=== PATIENT | female | born 1950 | race Caucasian/White ===

== ENCOUNTER 2020-01-25 11:27 | Emergency (ER) | payer OTHER ==
[2020-01-25] MEDS ORDERED: PROMETHAZINE INJ 25 MG/ML AMP ONE (12:12)
[2020-01-25] MEDS ORDERED: NA CHLORIDE 0.9% 1,000 ML ONE (12:12)
[2020-01-25 12:29] LABS: Absolute Lymphocytes (CBC) 2.2 K/uL (0.7-4.9); Basophils % 0.2 % (0-1.3); Hematocrit 37.8 % (36.0-45.0); Lymphocytes % 19.8 % (15.3-44.8); MPV 8.6 fL (7.6-11.3); Protime INR 1.68; RBC Red Blood Cell Count 4.27 M/uL (3.86-4.86)
[2020-01-25 12:45] LABS: ALT/SGPT 25 U/L (12-78); AST/SGOT 20 U/L (15-37); Albumin 3.5 g/dL (3.4-5.0); Alkaline Phosphatase 74 U/L (45-117); BUN Blood Urea Nitrogen 59 mg/dL (7-18); Bicarbonate 26 mmol/L (21-32); Bilirubin Direct 0.3 mg/dL (0-0.2); Bilirubin Total 1.1 mg/dL (0.2-1.0); Glucose Level 220 mg/dL (74-106); Lipase 557 U/L (73-393); Magnesium 2.1 mg/dL (1.8-2.4); NT PRO-BNP 424 pg/mL (<125); Potassium 5.2 mmol/L (3.5-5.1); Sodium Level 127 mmol/L (136-145); Troponin (Emerg Dept Use Only) < 0.02 ng/mL (0.0-0.045)
--- NOTE | 2020-01-25 12:58 | RAD REPORT ---
EXAM DESCRIPTION: Alejandro Single View01/25/2020 12:50 pm CLINICAL HISTORY: Covid 19 positive COMPARISON: none FINDINGS: The lungs appear clear of acute infiltrate. The heart is normal size IMPRESSION: No acute abnormalities displayed
--- OUTSIDE RECORDS SUMMARY | 2020-01-25 13:01 | XMS REPORT | Continuity of Care Document ---
:1950 Author Organization [facility] t Address [address] [place] [address] Care Team Providers Name Role Phone Unavailable Unavailable Unavailable Payers Payer Name Policy Type Policy Number Effective Date Expiration Date S ource Problems This patient has no known problems. Allergies, Adverse Reactions, Alerts Allergy Allergy Status Severity Reaction(s) Onset Inactive Treating Comm ents Source Name Type Date Date Clinician penicill DA Active [place] [facility] in G 10-23 Clear 00:00: [facility] [address] [place] [address] Medications This patient has no known medications. Procedures This patient has no known procedures. Results Test Description Test Time Test Comments Results Result Comments Source GLUCOSE BEDSIDE TESTING 2019-10-29 16:46:00 Test Item Value Reference Range Interpretation Comme nts GLUCOSE BEDSIDE TESTING (test code = GLUBED) 116 mg/dL 70-110 H GLUCOSE BEDSIDE [id number] 12:01:00 Test Item Value Reference Range Interpretation Comments GLUCOSE BEDSIDE TESTING (test code 156 mg/dL 70-110 H = GLUBED) GLUCOSE BEDSIDE [id number] 08:28:00 Test Item Value Reference Range Interpretation Comments GLUCOSE BEDSIDE TESTING (test code 115 mg/dL 70-110 H = GLUBED) GLUCOSE BEDSIDE [id number] 19:53:00 Test Item Value Reference Range Interpretation Comments GLUCOSE BEDSIDE TESTING (test code 147 mg/dL 70-110 H = GLUBED) GLUCOSE BEDSIDE [id number] 15:59:00 Test Item Value Reference Range Interpretation Comments GLUCOSE BEDSIDE TESTING (test code 166 mg/dL 70-110 H = GLUBED) GLUCOSE BEDSIDE [id number] 08:06:00 Test Item Value Reference Range Interpretation Comments GLUCOSE BEDSIDE TESTING (test code 158 mg/dL 70-110 H = GLUBED) NT PRO-BRAIN NATRIURETIC [id number] 05:47:00 Test Item Value Reference Range Interpretation Comments NT PRO-BRAIN NATRIURETIC PEPTI 2344 PG/ML 0-100 H (test code = PROBNP) BASIC METABOLIC [id number] 05:40:00 Test Item Value Reference Range Interpretation Comments SODIUM (test code = NA) 138 mmol/L 134-147 N POTASSIUM (test code = 3.3 mmol/L 3.4-5.0 L K) CHLORIDE (test code = 103 mmol/L 100-108 N CL) CARBON DIOXIDE (test 29 mmol/L 21-32 N code = CO2) ANION GAP (test code = 6.0 GAP calc 4.0-15.0 N GAP) GLUCOSE (test code = 149 MG/DL 70-110 H GLU) BLOOD UREA NITROGEN 11 MG/DL 7-18 N (test code = BUN) GLOMERULAR FILTRATION >=60 max estimate >60 RATE (test code = GFR) estGFR CREATININE (test code = 0.7 MG/DL 0.6-1.0 N CREAT) CALCIUM (test code = CA) 8.4 MG/DL 8.5-10.1 L CBC W/AUTO [id number] 05:34:00 Test Item Value Reference Range Interpretation Comments WHITE BLOOD CELL (test code = 8.7 K/mm3 3.5-11.0 N WBC) RED BLOOD CELL (test code = RBC) 5.02 M/mm3 4.70-6.10 N HEMOGLOBIN (test code = HGB) 15.0 G/DL 10.4-14.9 H HEMATOCRIT (test code = HCT) 47.3 % 31.5-44.1 H MEAN CELL VOLUME (test code = 94.2 Fl 84.5-98.6 N MCV) MEAN CELL HGB (test code = MCH) 29.9 pg 27.0-34.2 N MEAN CELL HGB CONCETRATION (test 31.7 G/DL 31.5-34.0 N code = MCHC) RED CELL DISTRIBUTION WIDTH (test 12.7 SD 11.5-14.5 N code = RDW) PLATELET COUNT (test code = PLT) 222.0 K/mm3 150-450 N MEAN PLATELET VOLUME (test code = 10.90 fL 7.0-10.5 H MPV) NEUTROPHIL % (test code = NT%) 66.2 % 40-76 LYMPHOCYTE % (test code = LY%) 23.6 % 20.5-51.1 N MONOCYTE % (test code = MO%) 8.7 % 1.7-9.3 N EOSINOPHIL % (test code = EO%) 1.3 % 0.0-6.0 N BASOPHIL % (test code = BA%) 0.2 % 0.0-2.0 N NEUTROPHIL # (test code = NT#) 5.75 K/mm3 1.8-7.6 N LYMPHOCYTE # (test code = LY#) 2.1 K/mm3 0.6-3.2 N MONOCYTE # (test code = MO#) 0.8 K/mm3 0.3-1.1 N EOSINOPHIL # (test code = EO#) 0.1 K/mm3 0.0-0.4 N BASOPHIL # (test code = BA#) 0.0 K/mm3 0.0-0.1 N MANUAL DIFF REQUIRED (test code = NO DIFF/SCN CRITERIA MDIFF) GLUCOSE BEDSIDE [id number] 20:46:00 Test Item Value Reference Range Interpretation Comments GLUCOSE BEDSIDE TESTING (test code 138 mg/dL 70-110 H = GLUBED) GLUCOSE BEDSIDE [id number] 16:32:00 Test Item Value Reference Range Interpretation Comments GLUCOSE BEDSIDE TESTING (test code 138 mg/dL 70-110 H = GLUBED) - XR SHOULDER 2+V [id number] 15:14:00 Name: ARMANI WILKES [facility] : 1950 Age/S: 69 / F [id number] [address] Unit #: [id number] Loc: [place] [address] Phys: Sona Freed MD Acct: [id number] Dis Date: Status: ADM IN PHONE #: [phone] Exam Date: 10/27/2019 1448 FAX #: Reason: RIGHT SHOULDER PAIN EXAMS: CPT: [id number] XR SHOULDER 2+[place] [address] Fluoro Time: DAP (Gy m2): Air Kerma (mGy): C3 Date: 10/27/2019 REASON FOR EXAM: Right shoulder pain COMPARISON: None. FINDINGS: 3 views of the right shoulder were obtained. There is no fracture, dislocation, bone destruction, or radiopaque foreign body. There is no pathologic widening of the acromioclavicular joint. No soft tissue abnormality is seen. Limited views of the right lung demonstrate a small right pleural effusion. IMPRESSION: 1. No acute bony abnormality ofthe right shoulder. 2. Right pleural effusion. at 1514 Reported and signed by: Alpesh Hammer M.D. CC: Sona Freed MD; Raf Rausch MD; Roc Petersen III, MD PAGE 1 Signed Report Name: ARMANI WILKES [facility] [place] : 1950 Age/S: 69 / F [address] [address] Unit #: [id number]: [place] [address] Phys: Sona Freed MD Acct: [id number] Dis Date: Status: ADM IN PHONE #: [phone] Exam Date: 10/27/2019 1448 FAX #: Reason: RIGHT SHOULDER PAIN EXAMS: CPT: [id number] XR SHOULDER 2+[place] [address] Fluoro Time: DAP (Gy m2): Air Kerma (mGy): <Continued> Technologist: Carmen Beckman RT(R)(CT) Trnscb Date/Time: 10/27/2019 (1513) [email or web address] Orig Print D/T: S: 10/27/2019 (1517) PAGE 2 Signed ReportGLUCOSE BEDSIDE [id number] 11:23:00 Test Item Value Reference Range Interpretation Comments GLUCOSE BEDSIDE TESTING (test code 164 mg/dL 70-110 H = GLUBED) GLUCOSE BEDSIDE [id number] 07:35:00 Test Item Value Reference Range Interpretation Comments GLUCOSE BEDSIDE TESTING (test code 158 mg/dL 70-110 H = GLUBED) CBC W/AUTO [id number] 06:49:00 Test Item Value Reference Range Interpretation Comments WHITE BLOOD CELL (test code = 7.8 K/mm3 3.5-11.0 N WBC) RED BLOOD CELL (test code = RBC) 4.83 M/mm3 4.70-6.10 N HEMOGLOBIN (test code = HGB) 14.5 G/DL 10.4-14.9 N HEMATOCRIT (test code = HCT) 45.8 % 31.5-44.1 H MEAN CELL VOLUME (test code = 94.8 Fl 84.5-98.6 N MCV) MEAN CELL HGB (test code = MCH) 30.0 pg 27.0-34.2 N MEAN CELL HGB CONCETRATION (test 31.7 G/DL 31.5-34.0 N code = MCHC) RED CELL DISTRIBUTION WIDTH (test 12.6 SD 11.5-14.5 N code = RDW) PLATELET COUNT (test code = PLT) 205.0 K/mm3 150-450 N MEAN PLATELET VOLUME (test code = 10.80 fL 7.0-10.5 H MPV) NEUTROPHIL % (test code = NT%) 56.7 % 40-76 N LYMPHOCYTE % (test code = LY%) 32.3 % 20.5-51.1 N MONOCYTE % (test code = MO%) 8.7 % 1.7-9.3 N EOSINOPHIL % (test code = EO%) 2.2 % 0.0-6.0 N BASOPHIL % (test code = BA%) 0.1 % 0.0-2.0 N NEUTROPHIL # (test code = NT#) 4.41 K/mm3 1.8-7.6 N LYMPHOCYTE # (test code = LY#) 2.5 K/mm3 0.6-3.2 N MONOCYTE # (test code = MO#) 0.7 K/mm3 0.3-1.1 N EOSINOPHIL # (test code = EO#) 0.2 K/mm3 0.0-0.4 N BASOPHIL # (test code = BA#) 0.0 K/mm3 0.0-0.1 N MANUAL DIFF REQUIRED (test code = NO DIFF/SCN CRITERIA MDIFF) BASIC METABOLIC [id number] 06:49:00 Test Item Value Reference Range Interpretation Comments SODIUM (test code = NA) 141 mmol/L 134-147 N POTASSIUM (test code = 4.2 mmol/L 3.4-5.0 N K) CHLORIDE (test code = 106 mmol/L 100-108 N CL) CARBON DIOXIDE (test 33 mmol/L 21-32 H code = CO2) ANION GAP (test code = 2.0 GAP calc 4.0-15.0 L GAP) GLUCOSE (test code = 147 MG/DL 70-110 H GLU) BLOOD UREA NITROGEN 12 MG/DL 7-18 N (test code = BUN) GLOMERULAR FILTRATION >=60 max estimate >60 RATE (test code = GFR) estGFR CREATININE (test code = 0.8 MG/DL 0.6-1.0 N CREAT) CALCIUM (test code = CA) 8.4 MG/DL 8.5-10.1 L GLUCOSE BEDSIDE [id number] 21:09:00 Test Item Value Reference Range Interpretation Comments GLUCOSE BEDSIDE TESTING (test code 246 mg/dL 70-110 H = GLUBED) GLUCOSE BEDSIDE [id number] 16:54:00 Test Item Value Reference Range Interpretation Comments GLUCOSE BEDSIDE TESTING (test code 197 mg/dL 70-110 H = GLUBED) - XR FOOT 3+V [id number] 14:28:00 Name: ARMANI WILKES [place] : 1950 Age/S: 69 / F [address] [address] Unit #: [id number] Loc: [place] [address] Phys: Roberto Guy MD Acct: [id number] Dis Date: Status: ADM IN PHONE #: [phone] Exam Date: 10/26/2019 1353 FAX #: Reason: bruisingand pain EXAMS: CPT: [id number] XR FOOT 3+[place] [address] Fluoro Time: DAP (Gy m2): Air Kerma (mGy): EXAM: - XR TIBIA/FIBULA 2 V RT, - XR FOOT 3+V RT HISTORY: bruising and pain Location code:C3 COMPARISON: None available time of interpretation. FINDINGS: AP, oblique, and lateral viewof the right foot with 2 AP and 2 lateral views of the right tibia and fibula is provided. There is no acute fracture or malalignment. Degenerative change about the 1st MTP joint, knee, and tibiotalar joint is present. IMPRESSION: No acute osseous abnormality. at 1428 Reported and signed by: Donald Polanco MD CC: Roberto Guy MD; Raf Rausch MD; Roc Petersen III, MD PAGE 1Signed Report Name: [facility] [place] : 1950 Age/S: 69 / F [address] [facility] Unit #: [id number] Loc: [place] [address] Phys: Roberto Guy MD Acct: [id number] Dis Date: Status: ADM IN PHONE #: [phone] Exam Date: 10/26/2019 1353 FAX #: Reason: bruising and pain EXAMS: CPT: [id number] XR FOOT 3+[place] [address] Fluoro Time: DAP (Gy m2): Air Kerma (mGy): <Co ntinued> Technologist: Yakelin Nguyen, RT(R) Trnscb Date/Time: 10/26/2019 (1428) [email or web address] Orig Print D/T: S: 10/26/2019 (1332) PAGE 2 Signed Report- XR TIBIA/FIBULA 2 V [id number] 14:28:00 Name: [facility] WILKES [facility] [place] : 1950 Age/S: 69 / F [address] [facility] Unit #: [id number] Loc: [place] [address] Phys: Roberto Guy MD Acct: [id number] Dis Date: Status: ADM IN PHONE #: [phone] Exam Date: 10/26/2019 1400 FAX #: Reason: bruisingand pain EXAMS: CPT: [id number] XR TIBIA/FIBUL[place] 2 [place] [address] Fluoro Time: DAP (Gy m2): Air Kerma (mGy): EXAM: - XR TIBIA/FIBULA 2 V RT, - XR FOOT 3+V RT HISTORY: bruising and pain Location code:C3 COMPARISON: None available time of interpretation. FINDINGS: AP, oblique, and lateral viewof the right foot with 2 AP and 2 lateral views of the right tibia and fibula is provided. There is no acute fracture or malalignment. Degenerative change about the 1st MTP joint, knee, and tibiotalar joint is present. IMPRESSION: No acute osseous abnormality. at 1428 Reported and signed by: Donald Polanco MD CC: Roberto Guy MD; Raf Rausch MD; Roc Petersen III, MD PAGE 1Signed Report Name: ARMANI WILKES : 1950 Age/S: 69 / F [address] [address] Unit #: [id number] Loc: [place] [address] Phys: Roberto Guy MD Acct: [id number] Dis Date: Status: ADM IN PHONE #: [phone] Exam Date: 10/26/2019 1400 FAX #: Reason: bruising and pain EXAMS: CPT: [id number] XR TIBIA/FIBULA 2 [place] [address] Fluoro Time: DAP (Gy m2): Air Kerma (mGy): <Continued> Technologist: Yakelin Nguyen RT(R) Trnscb Date/Time: 10/26/2019 (142) [email or web address] Orig Print D/T: S: 10/26/2019 (3785) PAGE 2 Signed ReportGLUCOSE BEDSIDE [id number] 11:28:00 Test Item Value Reference Range Interpretation Comments GLUCOSE BEDSIDE TESTING (test code 177 mg/dL 70-110 H = GLUBED) GLUCOSE BEDSIDE [id number] 07:43:00 Test Item Value Reference Range Interpretation Comments GLUCOSE BEDSIDE TESTING (test code 147 mg/dL 70-110 H = GLUBED) CBC W/AUTO [id number] 07:27:00 Test Item Value Reference Range Interpretation Comments WHITE BLOOD CELL (test code = 8.2 K/mm3 3.5-11.0 N WBC) RED BLOOD CELL (test code = RBC) 4.72 M/mm3 4.70-6.10 N HEMOGLOBIN (test code = HGB) 14.3 G/DL 10.4-14.9 N HEMATOCRIT (test code = HCT) 45.0 % 31.5-44.1 H MEAN CELL VOLUME (test code = 95.3 Fl 84.5-98.6 N MCV) MEAN CELL HGB (test code = MCH) 30.3 pg 27.0-34.2 N MEAN CELL HGB CONCETRATION (test 31.8 G/DL 31.5-34.0 N code = MCHC) RED CELL DISTRIBUTION WIDTH (test 12.6 SD 11.5-14.5 N code = RDW) PLATELET COUNT (test code = PLT) 214.0 K/mm3 150-450 N MEAN PLATELET VOLUME (test code = 11.50 fL 7.0-10.5 H MPV) NEUTROPHIL % (test code = NT%) 61.4 % 40-76 LYMPHOCYTE % (test code = LY%) 28.3 % 20.5-51.1 N MONOCYTE % (test code = MO%) 8.2 % 1.7-9.3 N EOSINOPHIL % (test code = EO%) 1.9 % 0.0-6.0 N BASOPHIL % (test code = BA%) 0.2 % 0.0-2.0 N NEUTROPHIL # (test code = NT#) 5.04 K/mm3 1.8-7.6 N LYMPHOCYTE # (test code = LY#) 2.3 K/mm3 0.6-3.2 N MONOCYTE # (test code = MO#) 0.7 K/mm3 0.3-1.1 N EOSINOPHIL # (test code = EO#) 0.2 K/mm3 0.0-0.4 N BASOPHIL # (test code = BA#) 0.0 K/mm3 0.0-0.1 N MANUAL DIFF REQUIRED (test code = NO DIFF/SCN CRITERIA MDIFF) BASIC METABOLIC [id number] 07:27:00 Test Item Value Reference Range Interpretation Comments SODIUM (test code = NA) 138 mmol/L 134-147 N POTASSIUM (test code = 3.6 mmol/L 3.4-5.0 N K) CHLORIDE (test code = 104 mmol/L 100-108 N CL) CARBON DIOXIDE (test 28 mmol/L 21-32 N code = CO2) ANION GAP (test code = 6.0 GAP calc 4.0-15.0 N GAP) GLUCOSE (test code = 129 MG/DL 70-110 H GLU) BLOOD UREA NITROGEN 13 MG/DL 7-18 N (test code = BUN) GLOMERULAR FILTRATION >=60 max estimate >60 RATE (test code = GFR) estGFR CREATININE (test code = 0.6 MG/DL 0.6-1.0 N CREAT) CALCIUM (test code = CA) 8.2 MG/DL 8.5-10.1 L GLUCOSE BEDSIDE [id number] 20:12:00 Test Item Value Reference Range Interpretation Comments GLUCOSE BEDSIDE TESTING (test code 170 mg/dL 70-110 H = GLUBED) GLUCOSE BEDSIDE [id number] 16:55:00 Test Item Value Reference Range Interpretation Comments GLUCOSE BEDSIDE TESTING (test code 122 mg/dL 70-110 H = GLUBED) GLUCOSE BEDSIDE [id number] 16:55:00 Test Item Value Reference Range Interpretation Comments GLUCOSE BEDSIDE TESTING (test code 220 mg/dL 70-110 H = GLUBED) PROTHROMBIN [id number] 13:05:00 Test Item Value Reference Range Interpretation Comments PT PATIENT (test code = PTP) 14.5 SECONDS 9.3-12.9 H INTERNATIONAL NORMAL RATIO 1.28 INR Unit 0.8-1.2 H (test code = INR) GLUCOSE BEDSIDE [id number] 08:08:00 Test Item Value Reference Range Interpretation Comments GLUCOSE BEDSIDE TESTING (test code 191 mg/dL 70-110 H = GLUBED) BASIC METABOLIC [id number] 06:54:00 Test Item Value Reference Range Interpretation Comments SODIUM (test code = NA) 140 mmol/L 134-147 N POTASSIUM (test code = 3.4 mmol/L 3.4-5.0 N K) CHLORIDE (test code = 108 mmol/L 100-108 N CL) CARBON DIOXIDE (test 27 mmol/L 21-32 N code = CO2) ANION GAP (test code = 5.0 GAP calc 4.0-15.0 N GAP) GLUCOSE (test code = 226 MG/DL 70-110 H GLU) BLOOD UREA NITROGEN 19 MG/DL 7-18 H (test code = BUN) GLOMERULAR FILTRATION >=60 max estimate >60 RATE (test code = GFR) estGFR CREATININE (test code = 0.8 MG/DL 0.6-1.0 N CREAT) CALCIUM (test code = CA) 8.0 MG/DL 8.5-10.1 L LIPID PROFILE (CORONARY RISK)[id number] 06:54:00 Test Item Value Reference Range Interpretation Comments TRIGLYCERIDES (test code = TRIG) 94 MG/DL 0-150 N CHOLESTEROL (test code = CHOL) 133 MG/DL 133-200 N CHOLESTEROL/HDL RATIO (test code = 3.50 RATIO >0 CHOLHDL) HDL CHOLESTEROL (test code = HDL) 38 MG/DL 40-59 L NON-HDL CHOLESTEROL (test code = 95 mg/dL <130 NHDL) LIPOPROTEIN LDL (test code = LDL) 84 MG/DL 0-129 N LDL/HDL (test code = LDL/HDL) 2.21 Ratio 1.48-3.22 Avg N [id number] 06:52:00 Test Item Value Reference Range Interpretation Comments GLYCOSYLATED HEMOGLOBIN (HA1C) 7.8 % A1C 0.0-5.7 H (test code = GLYHGB) ESTIMATED AVERAGE GLUCOSE (test 177 MG/DLest code = EAG) CBC W/AUTO [id number] 06:42:00 Test Item Value Reference Range Interpretation Comments WHITE BLOOD CELL (test code = 7.5 K/mm3 3.5-11.0 N WBC) RED BLOOD CELL (test code = RBC) 4.36 M/mm3 4.70-6.10 L HEMOGLOBIN (test code = HGB) 13.2 G/DL 10.4-14.9 N HEMATOCRIT (test code = HCT) 41.5 % 31.5-44.1 N MEAN CELL VOLUME (test code = 95.2 Fl 84.5-98.6 N MCV) MEAN CELL HGB (test code = MCH) 30.3 pg 27.0-34.2 N MEAN CELL HGB CONCETRATION (test 31.8 G/DL 31.5-34.0 N code = MCHC) RED CELL DISTRIBUTION WIDTH (test 12.5 SD 11.5-14.5 N code = RDW) PLATELET COUNT (test code = PLT) 211.0 K/mm3 150-450 N MEAN PLATELET VOLUME (test code = 11.30 fL 7.0-10.5 H MPV) NEUTROPHIL % (test code = NT%) 52.9 % 40-76 N LYMPHOCYTE % (test code = LY%) 36.1 % 20.5-51.1 N MONOCYTE % (test code = MO%) 7.9 % 1.7-9.3 N EOSINOPHIL % (test code = EO%) 2.8 % 0.0-6.0 N BASOPHIL % (test code = BA%) 0.3 % 0.0-2.0 N NEUTROPHIL # (test code = NT#) 3.95 K/mm3 1.8-7.6 N LYMPHOCYTE # (test code = LY#) 2.7 K/mm3 0.6-3.2 N MONOCYTE # (test code = MO#) 0.6 K/mm3 0.3-1.1 N EOSINOPHIL # (test code = EO#) 0.2 K/mm3 0.0-0.4 N BASOPHIL # (test code = BA#) 0.0 K/mm3 0.0-0.1 N MANUAL DIFF REQUIRED (test code = NO DIFF/SCN CRITERIA MDIFF) [id number] 00:35:00 Test Item Value Reference Range Interpretation Comments TROPONIN-I (test 0.657 NG/ML 0.000-0.045 HH Negative: < /= 0.045 code = TROPI) Positive: >/= 0.046 Correlation wit h serial results, other cardiac markers, and cl inical findings is nec essary to determine the c linical significance of this result. Quantit ative results using d ifferent methodologies s hould not be compared to one another as nume rical results may paresh yby method. Completed by Nursing: NO- DUP LE ART [id number] 23:27:00 Name: ARMANI WILKES [facility] : 1950 Age/S: 69 / F [address] [address] Unit #: [id number] Loc: [place] [address] Phys: Que Summers LEAF TIER Acct: [id number] Dis Date: Status: ADM IN PHONE #: [phone] Exam Date: 10/24/2019 7164 FAX #: Reason: HÉCTOR LOWER EXT COLD EXAMS: CPT: [id number] DUP LE ART HÉCTOR [id number] HISTORY: Pain TECHNIQUE: Grayscale B-mode, color-flow, and spectral Doppler analysis of the lower extremity arterial vasculature was performed. COMPARISON: None available time of interpretation. FINDINGS: There are triphasic and biphasic waveforms involving the lower extremity arterial structures bilaterally. No evidence of vascular occlusion or high-grade flow limiting stenosis. IMPRESSION: 1. No sonographic evidence of hemodynamically significant stenosis within the lower extremity arterial vasculature. at 2327 Reported and signed by: Bladimir Cabral M.D. CC: Raf Rausch MD; Roc Petersen III, MD; Que Summers NP Technologist: Margaret Guevara RDMS Trnscb Date/Time: 10/24/2019 (9359) [email or web address] PAGE 1 Signed Report Name: ARMANI WILKES : 1950 Age/S: 69 / F [address] [address] Unit #: [id number] Loc: [place] [address] Phys: Que Summers NP Acct: [id number] Dis Date: Status: ADM IN PHONE #: [phone] Exam Date: 10/24/20192303 FAX #: Reason: HÉCTOR LOWER EXT COLD EXAMS: CPT: [id number] DUP LE ART HÉCTOR [id number] <Continued> Orig Print D/T: S: 10/24/2019 (6329) Probe: PAGE 2 Signed ReportGLUCOSE BEDSIDE [id number] 21:49:00 Test Item Value Reference Range Interpretation Comments GLUCOSE BEDSIDE TESTING (test code 192 mg/dL 70-110 H = GLUBED) [id number] 20:33:00 Test Item Value Reference Range Interpretation Comments TROPONIN-I (test 0.662 NG/ML 0.000-0.045 HH Negative: < /= 0.045 code = TROPI) Positive: >/= 0.046 Correlation wit h serial results, other cardiac markers, and cl inical findings is nec essary to determine the c linical significance of this result. Quantit ative results using d ifferent methodologies s hould not be compared to one another as nume rical results may paresh yby method. Completed by Nursing: NOBASIC METABOLIC [id number] 20:19:00 Test Item Value Reference Range Interpretation Comments SODIUM (test code = NA) 139 mmol/L 134-147 N POTASSIUM (test code = 3.4 mmol/L 3.4-5.0 N K) CHLORIDE (test code = 106 mmol/L 100-108 N CL) CARBON DIOXIDE (test 27 mmol/L 21-32 N code = CO2) ANION GAP (test code = 6.0 GAP calc 4.0-15.0 N GAP) GLUCOSE (test code = 197 MG/DL 70-110 H GLU) BLOOD UREA NITROGEN 23 MG/DL 7-18 H (test code = BUN) GLOMERULAR FILTRATION >=60 max estimate >60 RATE (test code = GFR) estGFR CREATININE (test code = 0.8 MG/DL 0.6-1.0 N CREAT) CALCIUM (test code = CA) 8.1 MG/DL 8.5-10.1 L CREATINE KINASE (CK)2019-10-24 20:19:00 Test Item Value Reference Range Interpretation Comments CREATINE KINASE (CK) (test code = 74 Unit/L 26-192 N CK) NT PRO-BRAIN NATRIURETIC [id number] 20:19:00 Test Item Value Reference Range Interpretation Comments NT PRO-BRAIN NATRIURETIC PEPTI 3548 PG/ML 0-100 H (test code = PROBNP) BASIC METABOLIC [id number] 20:13:00 Test Item Value Reference Range Interpretation Comments SODIUM (test code = NA) 139 mmol/L 134-147 N POTASSIUM (test code = K) 3.4 mmol/L 3.4-5.0 N CHLORIDE (test code = CL) 106 mmol/L 100-108 N CARBON DIOXIDE (test code = CO2) 27 mmol/L 21-32 N ANION GAP (test code = GAP) 6.0 GAP calc 4.0-15.0 N GLUCOSE (test code = GLU) 197 MG/DL 70-110 H BLOOD UREA NITROGEN (test code = 23 MG/DL 7-18 H BUN) GLOMERULAR FILTRATION RATE (test estGFR >60 code = GFR) CREATININE (test code = CREAT) MG/DL 0.6-1.0 CALCIUM (test code = CA) 8.1 MG/DL 8.5-10.1 L CREATINE KINASE (CK)2019-10-24 20:13:00 Test Item Value Reference Range Interpretation Comments CREATINE KINASE (CK) (test code = CK) Unit/L 26-192 NT PRO-BRAIN NATRIURETIC [id number] 20:13:00 Test Item Value Reference Range Interpretation Comments NT PRO-BRAIN NATRIURETIC PEPTI (test PG/ML 0-100 code = PROBNP) - XR CHEST 1 [id number] 20:08:00 Name: ARMANI WILKES [place] : 1950 Age/S: 69 / F [id number] [place] Unit #: [id number] Loc: [place] [address] Phys: Chi Wasserman MD Acct: [id number] Dis Date: Status: ADM IN PHONE #: [phone] Exam Date: 10/24/20192004 FAX #: Reason: SOB EXAMS: CPT: [id number] XR CHEST 1 V [id number] Fluoro Time: DAP (Gy m2): Air Kerma (mGy): - XR CHEST 1 V, 10/24/2019 7:46 PM Reason For Examination: SOB Comparison: None available Location: R16 Findings LUNGS: No definite pulmonary edema or consolidation is visualized although right basilar consolidation difficult to exclude PLEURA:Moderate- sized right effusion is noted CARDIOMEDIASTINAL SILHOUETTE Unremarkable IMPRESSION: Moderate-sized right effusion is noted, underlying consolidation difficult to exclude at 2008 Reported and signed by: Anastasia Murdock M.D. CC: Chi Wasserman MD PAGE 1 Signed Report Name: ARMANI WILKES [place] : 1950 Age/S: 69 / F [address] [place] [address] Unit #: [id number] Loc:[place] [address] Phys: Chi Wasserman MD Acct: [id number] Dis Date: Status: ADM IN PHONE #: [phone] Exam Date: 10/24/20192004 FAX #: Reason: SOB EXAMS: CPT: [id number] XR CHEST 1 V 08955 Fluoro Ti me: DAP (Gy m2): Air Kerma (mGy): <Continued> Technologist: Argentina Foster RT(R)(CT)(MRI) Trnscb Date/Time: 10/24/2019 (2007) [id number] Orig Print D/T: S: 10/24/2019 (2011) PAGE 2 Signed ReportCBC W/O [id number] 20:06:00 Test Item Value Reference Range Interpretation Comments WHITE BLOOD CELL (test code = 9.6 K/mm3 3.5-11.0 N WBC) RED BLOOD CELL (test code = RBC) 4.56 M/mm3 4.70-6.10 L HEMOGLOBIN (test code = HGB) 13.6 G/DL 10.4-14.9 N HEMATOCRIT (test code = HCT) 42.8 % 31.5-44.1 N MEAN CELL VOLUME (test code = 93.9 Fl 84.5-98.6 N MCV) MEAN CELL HGB (test code = MCH) 29.8 pg 27.0-34.2 N MEAN CELL HGB CONCETRATION (test 31.8 G/DL 31.5-34.0 N code = MCHC) RED CELL DISTRIBUTION WIDTH (test 12.4 SD 11.5-14.5 N code = RDW) PLATELET COUNT (test code = PLT) 222.0 K/mm3 150-450 N MEAN PLATELET VOLUME (test code = 11.40 fL 7.0-10.5 H MPV)
[2020-01-25] MEDS ORDERED: ALBUTEROL 2.5 MG/3 ML NEB SOL ONE (13:07)
[2020-01-25] MEDS ORDERED: NA CHLORIDE 0.9% 500 ML ONE ×2 (13:08→17:03)
[2020-01-25] MEDS ORDERED: INSULIN -REGULAR HUMAN 50 UNIT/0.5 ML ML ONE (13:08)
[2020-01-25 16:33] LABS: Potassium 4.4 mmol/L (3.5-5.1)
--- NOTE | 2020-01-25 17:33 | EDPHYS ---
Physician Documentation [facility] Name: Erum Mckay Age: 69 yrs Sex: Female : 1950 Arrival Date: 01/25/2020 Time: 11:30 Bed 13 Private MD: ED Physician Bravo Birch HPI: 01/24 12:23 This 69 yrs old Female presents to ER via Wheelchair with complaints of snw Nausea/Vomiting. 12:23 The patient presents to the emergency department with nausea, vomiting. Onset: The snw symptoms/episode began/occurred suddenly, today. Possible causes: unknown. The symptoms are aggravated by nothing. Severity of symptoms: At their worst the symptoms were moderate. The patient has not experienced similar symptoms in the past. yes, Pt recently dx with CoVid 19, three weeks ago, pt has been asymptomatic x 1 week. Pt takes ASA and Eliquis. Historical: - Allergies: 11:46 No Known Allergies; ca1 - PMHx: 11:46 Atrial Fib; Diabetes - IDDM; CHF; ca1 - PSHx: 11:46 None; ca1 - Immunization history:: Adult Immunizations up to date. - Social history:: Smoking status: Patient denies any tobacco usage or history of. ROS: 12:22 Constitutional: Negative for fever, chills, and weight loss, Eyes: Negative for injury, snw pain, redness, and discharge, ENT: Negative for injury, pain, and discharge, Neck: Negative for injury, pain, and swelling, Cardiovascular: Negative for chest pain, palpitations, and edema, Respiratory: Negative for shortness of breath, cough, wheezing, and pleuritic chest pain, Back: Negative for injury and pain, : Negative for injury, bleeding, discharge, and swelling, MS/Extremity: Negative for injury and deformity, Skin: Negative for injury, rash, and discoloration, Neuro: Negative for headache, weakness, numbness, tingling, and seizure, Psych: Negative for depression, anxiety, suicide ideation, homicidal ideation, and hallucinations. 12:22 Abdomen/GI: Positive for nausea and vomiting. Exam: 12:22 Constitutional: This is a well developed, well nourished patient who is awake, alert, snw and in no acute distress. Head/Face: Normocephalic, atraumatic. Eyes: Pupils equal round and reactive to light, extra-ocular motions intact. Lids and lashes normal. Conjunctiva and sclera are non-icteric and not injected. Cornea within normal limits. Periorbital areas with no swelling, redness, or edema. ENT: Nares patent. No nasal discharge, no septal abnormalities noted. Tympanic membranes are normal and external auditory canals are clear. Oropharynx with no redness, swelling, or masses, exudates, or evidence of obstruction, uvula midline. Mucous membranes moist. Neck: Trachea midline, no thyromegaly or masses palpated, and no cervical lymphadenopathy. Supple, full range of motion without nuchal rigidity, or vertebral point tenderness. No Meningismus. Chest/axilla: Normal chest wall appearance and motion. Nontender with no deformity. No lesions are appreciated. Cardiovascular: Regular rate and rhythm with a normal S1 and S2. No gallops, murmurs, or rubs. Normal PMI, no JVD. No pulse deficits. Respiratory: Lungs have equal breath sounds bilaterally, clear to auscultation and percussion. No rales, rhonchi or wheezes noted. No increased work of breathing, no retractions or nasal flaring. Back: No spinal tenderness. No costovertebral tenderness. Full range of motion. Skin: Warm, dry with normal turgor. Normal color with no rashes, no lesions, and no evidence of cellulitis. MS/ Extremity: Pulses equal, no cyanosis. Neurovascular intact. Full, normal range of motion. Neuro: Awake and alert, GCS 15, oriented to person, place, time, and situation. Cranial nerves II-XII grossly intact. Motor strength 5/5 in all extremities. Sensory grossly intact. Cerebellar exam normal. Normal gait. Psych: Awake, alert, with orientation to person, place and time. Behavior, mood, and affect are within normal limits. 12:22 Abdomen/GI: Inspection: abdomen appears normal, Bowel sounds: normal, Palpation: abdomen is soft and non-tender, in all quadrants. Vital Signs: 11:43 BP 117 / 67; Pulse 61; Resp 18 S; Temp 97.9(TE); Pulse Ox 100% on R/A; Weight 62.6 kg ca1 (R); Height 5 ft. 5 in. (165.10 cm) (R); 11:53 BP 114 / 67; Pulse 62; Resp 16 S; Pulse Ox 96% on R/A; aa5 12:30 BP 103 / 62; Pulse 59; Resp 18 S; Pulse Ox 96% on R/A; aa5 13:00 Pulse Ox 100% on Nebulizer Mask; aa5 13:30 BP 92 / 60; Pulse 58; Resp 18 S; Pulse Ox 96% on R/A; aa5 16:00 BP 98 / 61; Pulse 68; Resp 16 S; Pulse Ox 100% on R/A; aa5 17:00 BP 104 / 64; Pulse 70; Resp 18 S; Temp 98.0(TE); Pulse Ox 100% on R/A; aa5 11:43 Body Mass Index 22.96 (62.60 kg, 165.10 cm) ca1 MDM: 11:46 Patient medically screened. snw 17:04 Data reviewed: vital signs, nurses notes. Data interpreted: Pulse oximetry: on room air snw is 96 %. Interpretation: normal. Counseling: I had a detailed discussion with the patient and/or guardian regarding: the historical points, exam findings, and any diagnostic results supporting the discharge/admit diagnosis, lab results, the need for outpatient follow up. Response to treatment: the patient's symptoms have mildly improved after treatment, will repeat 500ml NS bolus, patient aware of plan of care. 01/24 11:47 Order name: Basic Metabolic Panel; Complete Time: 12:48 snw 01/24 11:47 Order name: CBC with Diff; Complete Time: 12:48 snw 01/24 11:47 Order name: LFT's; Complete Time: 12:48 snw 01/24 11:47 Order name: Magnesium; Complete Time: 12:48 snw 01/24 11:47 Order name: NT PRO-BNP; Complete Time: 12:48 snw 01/24 11:47 Order name: PT-INR; Complete Time: 12:48 snw 01/24 11:47 Order name: Troponin (emerg Dept Use Only); Complete Time: 12:48 snw 01/24 11:47 Order name: XRAY Chest (1 view); Complete Time: 13:05 snw 01/24 11:47 Order name: Lipase; Complete Time: 12:48 snw 01/24 14:53 Order name: Chem 7; Complete Time: 16:38 snw 01/24 11:47 Order name: EKG; Complete Time: 11:48 snw 01/24 11:47 Order name: Cardiac monitoring; Complete Time: 12:37 snw 01/24 11:47 Order name: EKG - Nurse/Tech; Complete Time: 12:37 snw 01/24 11:47 Order name: IV Saline Lock; Complete Time: 12:37 snw 01/24 11:47 Order name: Labs collected and sent; Complete Time: 12:37 snw 01/24 11:47 Order name: O2 Per Protocol; Complete Time: 12:37 snw 01/24 11:47 Order name: O2 Sat Monitoring; Complete Time: 12:38 snw Administered Medications: 12:15 Drug: Phenergan 12.5 mg Route: IVP; Site: right antecubital; aa5 12:20 Follow up: Response: No adverse reaction aa5 12:15 Drug: NS 0.9% 1000 ml Route: IV; Rate: 125 ml/hr; Site: right antecubital; aa5 13:00 Drug: Albuterol 2.5 mg Route: Inhalation; aa5 13:00 Drug: Albuterol 2.5 mg Route: Inhalation; aa5 13:00 Drug: Albuterol 2.5 mg Route: Inhalation; aa5 13:00 Drug: NS 0.9% 500 ml Route: IV; Rate: bolus; Site: right antecubital; aa5 13:30 Follow up: IV Status: Completed infusion aa5 13:00 Drug: Insulin Regular Human 5 units {Co-Signature: iw (Aleta Dumas RN).} Route: IVP; aa5 Site: right antecubital; 13:30 Follow up: Response: No adverse reaction aa5 17:00 Drug: NS 0.9% 500 ml Route: IV; Rate: bolus; Site: right antecubital; ca1 17:45 Follow up: IV Status: Completed infusion; IV Intake: 500ml aa5 Disposition: 01/25 08:42 Co-signature as Attending Physician, Bravo Birch MD I agree with the assessment and remberto plan of care. Disposition: 01/25/20 17:32 Discharged to Home. Impression: Vomiting, unspecified, Dehydration, Renal insufficiency. - Condition is Stable. - Discharge Instructions: Dehydration, Elderly, Nausea and Vomiting, Adult, Rehydration, Elderly. - Prescriptions for promethazine 25 mg Oral Tablet - take 1 tablet by ORAL route every 6 hours As needed; 20 tablet. - Medication Reconciliation Form, Thank You Letter, Antibiotic Education, Prescription Opioid Use form. - Follow up: Emergency Department; When: As needed; Reason: Worsening of condition. Follow up: Private Physician; When: 2 - 3 days; Reason: Recheck today's complaints, Continuance of care, Re-evaluation by your physician. Signatures: Dispatcher [employer] EDKY Bravo Birch MD MD cha Waters, Shelly, STEREOTYPER-C STEREOTYPER-Csnw Edna Vieira RN RN aa5 Judy Arauz RN RN ca1 Aleta Dumas RN iw Corrections: (The following items were deleted from the chart) 01/24 18:09 17:32 01/25/2020 17:32 Discharged to Home. Impression: Vomiting, unspecified; aa5 Dehydration; Renal insufficiency. Condition is Stable. Forms are Medication Reconciliation Form, Thank You Letter, Antibiotic Education, Prescription Opioid Use. Follow up: Emergency Department; When: As needed; Reason: Worsening of condition. Follow up: Private Physician; When: 2 - 3 days; Reason: Recheck today's complaints, Continuance of care, Re-evaluation by your physician. snw
--- NOTE | 2020-01-25 17:33 | ER ---
Nurse's Notes [facility] Name: Erum Mckay Age: 69 yrs Sex: Female : 1950 Arrival Date: 01/25/2020 Time: 11:30 Bed 13 Private MD: Diagnosis: Vomiting, unspecified;Dehydration;Renal insufficiency Presentation: 01/24 11:43 Chief complaint: Patient states: Covid-19 positive 3 weeks ago. Asymptomatic x 1 week. ca1 Retest done today, pending result. Woke up this morning with N/V/dizziness. No other symptoms reported. Coronavirus screen: Client denies travel out of the [place] in the last 14 days. nausea, vomiting. dizziness Client presents with at least one sign or symptom that may indicate coronavirus-19. Client reports previous positive COVID test result. The client indicates previous COVID test results are pending. Date of collection: January 25, 2020 [facility] Staff notified of need for isolation. Ebola Screen: Patient negative for fever greater than or equal to 101.5 degrees Fahrenheit, and additional compatible Ebola Virus Disease symptoms Patient denies exposure to infectious person. Patient denies travel to an Ebola-affected area in the 21 days before illness onset. No symptoms or risks identified at this time. Initial Sepsis Screen: Does the patient meet any 2 criteria? No. Patient's initial sepsis screen is negative. Does the patient have a suspected source of infection? No. Patient's initial sepsis screen is negative. Risk Assessment: Do you want to hurt yourself or someone else? Patient reports no desire to harm self or others. Onset of symptoms was January 25, 2020. 11:43 Method Of Arrival: Wheelchair ca1 11:43 Acuity: VIRGILIO 3 ca1 Historical: - Allergies: 11:46 No Known Allergies; ca1 - PMHx: 11:46 Atrial Fib; Diabetes - IDDM; CHF; ca1 - PSHx: 11:46 None; ca1 - Immunization history:: Adult Immunizations up to date. - Social history:: Smoking status: Patient denies any tobacco usage or history of. Screenin:00 Abuse screen: Denies threats or abuse. Nutritional screening: No deficits noted. aa5 Tuberculosis screening: No symptoms or risk factors identified. Fall Risk None identified. Assessment: 12:00 General: Appears comfortable, Behavior is calm, cooperative. Pain: Denies pain. 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 Speech is normal, Facial symmetry appears normal, Pupils are PERRLA, Reports dizziness. Cardiovascular: Heart tones S1 S2 present Rhythm is sinus rhythm. Respiratory: Airway is patent Respiratory effort is even, unlabored, Respiratory pattern is regular, symmetrical, Breath sounds are clear bilaterally. GI: Abdomen is round non-distended, Bowel sounds present X 4 quads. Abd is soft and non tender X 4 quads. 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 : No signs and/or symptoms were reported regarding the genitourinary system. EENT: No signs and/or symptoms were reported regarding the EENT system. Derm: Skin is pink, warm \T\ dry. Musculoskeletal: Range of motion: intact in all extremities. 12:30 Reassessment: Patient is alert, oriented x 3, equal unlabored respirations, skin aa5 warm/dry/pink. Pt notified of wait time for lab results. . 12:33 Reassessment: PT FAMILY CONTACT INFORMATION CAROLYN (SON): [phone]. [email or web address] 13:30 Reassessment: Patient is alert, oriented x 3, equal unlabored respirations, skin aa5 warm/dry/pink. 16:07 Reassessment: Patient is alert, oriented x 3, equal unlabored respirations, skin aa5 warm/dry/pink. Repeat chem 7 drawn and sent to lab, pt notified of wait time. . 17:45 Reassessment: Patient is alert, oriented x 3, equal unlabored respirations, skin aa5 warm/dry/pink. To bedside to d/c pt, pt has questions about discharge home, RN CORONARY CARE UNIT was notified. RN CORONARY CARE UNIT at bedside speaking to patient at this time.. Vital Signs: 11:43 BP 117 / 67; Pulse 61; Resp 18 S; Temp 97.9(TE); Pulse Ox 100% on R/A; Weight 62.6 kg ca1 (R); Height 5 ft. 5 in. (165.10 cm) (R); 11:53 BP 114 / 67; Pulse 62; Resp 16 S; Pulse Ox 96% on R/A; aa5 12:30 BP 103 / 62; Pulse 59; Resp 18 S; Pulse Ox 96% on R/A; aa5 13:00 Pulse Ox 100% on Nebulizer Mask; aa5 13:30 BP 92 / 60; Pulse 58; Resp 18 S; Pulse Ox 96% on R/A; aa5 16:00 BP 98 / 61; Pulse 68; Resp 16 S; Pulse Ox 100% on R/A; aa5 17:00 BP 104 / 64; Pulse 70; Resp 18 S; Temp 98.0(TE); Pulse Ox 100% on R/A; aa5 11:43 Body Mass Index 22.96 (62.60 kg, 165.10 cm) ca1 ED Course: 11:30 Patient arrived in ED. ag5 11:44 Edna Vieira, ARTI is Primary Nurse. aa5 11:46 Triage completed. ca1 11:46 Latisha Wheeler FNP-C is PHCP. snw 11:46 Bravo Birch MD is Attending Physician. snw 11:46 Arm band placed on right wrist. ca1 12:00 Patient has correct armband on for positive identification. Placed in gown. Bed in low aa5 position. Call light in reach. Side rails up X2. court recording monitor on. Pulse ox on. NIBP on. 12:10 Initial lab(s) drawn, by me, sent to lab. Inserted saline lock: 20 gauge in right aa5 antecubital area, using aseptic technique. Blood collected. 12:30 EKG done, by ED staff, reviewed by Bravo Birch MD. aa5 12:50 XRAY Chest (1 view) In Process Unspecified. EDMS 18:00 No provider procedures requiring assistance completed. IV discontinued, intact, aa5 bleeding controlled, No redness/swelling at site. Pressure dressing applied. Administered Medications: 12:15 Drug: Phenergan 12.5 mg Route: IVP; Site: right antecubital; aa5 12:20 Follow up: Response: No adverse reaction aa5 12:15 Drug: NS 0.9% 1000 ml Route: IV; Rate: 125 ml/hr; Site: right antecubital; aa5 13:00 Drug: Albuterol 2.5 mg Route: Inhalation; aa5 13:00 Drug: Albuterol 2.5 mg Route: Inhalation; aa5 13:00 Drug: Albuterol 2.5 mg Route: Inhalation; aa5 13:00 Drug: NS 0.9% 500 ml Route: IV; Rate: bolus; Site: right antecubital; aa5 13:30 Follow up: IV Status: Completed infusion aa5 13:00 Drug: Insulin Regular Human 5 units {Co-Signature: iw (Aleta Dumas RN).} Route: IVP; aa5 Site: right antecubital; 13:30 Follow up: Response: No adverse reaction aa5 17:00 Drug: NS 0.9% 500 ml Route: IV; Rate: bolus; Site: right antecubital; ca1 17:45 Follow up: IV Status: Completed infusion; IV Intake: 500ml aa5 Intake: 17:45 IV: 500ml; Total: 500ml. aa5 Outcome: 17:32 Discharge ordered by . [email or web address] 18:00 Discharged to home via wheelchair, with family. aa5 18:00 Condition: stable 18:00 Discharge instructions given to patient, Instructed on discharge instructions, follow up and referral plans. medication usage, Demonstrated understanding of instructions, follow-up care, medications, Prescriptions given X 1. 18:09 Patient left the ED. aa5 Signatures: Dispatcher [employer] EDMS Latisha Wheeler, TARSHA-C RAILROAD YARD WORKER-Csnw Edna Vieira RN RN aa5 Judy Arauz RN RN ca1 Bettina, Giovanny ag5 Sherice Sweet RN RN [id number] Aleta Dumas RN iw Corrections: (The following items were deleted from the chart) 13:44 13:30 BP 92 / 60; Pulse 58bpm; Resp 18bpm; Spontaneous; Pulse Ox 100% Nebulizer Mask; aa5 aa5
[2020-01-25 18:40] VITALS: TEMP 97.9
[2020-01-25 18:44] VITALS: BP 92/60; O2SAT 96
--- NOTE | 2020-01-26 11:04 | EKG ---
Test Date: 2020-01-25 Test Time: 12:28:19 Litigation Specialist: BIBIANA MEASUREMENT RESULTS: Intervals: Rate: 60 OK: 202 QRSD: 90 QT: 492 QTc: 492 [place]: P: 84 OK: 202 QRS: 63 T: 79 INTERPRETIVE STATEMENTS: Normal sinus rhythm Prolonged QT Abnormal ECG Compared to ECG 01/25/2020 12:27:54 No significant changes Electronically Signed On 01-26-20 11:02:01 CDT by Esequiel Epperson
== END 2020-01-25 18:09 | disposition home or self-care (01) ==
LOC: ER 11:27
DX: E86.0 Dehydration (principal); N28.9 Disorder of kidney and ureter, unspecified; I48.91 Unspecified atrial fibrillation; Z79.01 Long term (current) use of anticoagulants
CPT/HCPCS: 96361; 93005; 85025; 80048 ×2; 36415; 83735; 85610; 80076; 84484; 83690; 83880; 71045; 96375; 96374; 99285; J2550; J7040 ×2; J7030

== ENCOUNTER 2020-01-27 14:34 | Observation (INO) | payer OTHER ==
--- OUTSIDE RECORDS SUMMARY | 2020-01-27 14:38 | XMS REPORT | Continuity of Care Document ---
:1950 Author Organization [facility] t Address [address] [place] [address] Care Team Providers Name Role Phone Unavailable Unavailable Unavailable Payers Payer Name Policy Type Policy Number Effective Date Expiration Date S ource Problems This patient has no known problems. Allergies, Adverse Reactions, Alerts Allergy Allergy Status Severity Reaction(s) Onset Inactive Treating Comm ents Source Name Type Date Date Clinician penicill DA Active [facility] in G 10-23 Clear 00:00: [facility] [address] [place] [address] Medications This patient has no known medications. Procedures This patient has no known procedures. Results Test Description Test Time Test Comments Results Result Comments Source GLUCOSE BEDSIDE TESTING 2019-10-29 16:46:00 Test Item Value Reference Range Interpretation Comme nts GLUCOSE BEDSIDE TESTING (test code = GLUBED) 116 mg/dL 70-110 H GLUCOSE BEDSIDE [id number] 12:01:00 Test Item Value Reference Range Interpretation Comments GLUCOSE BEDSIDE TESTING (test code 156 mg/dL 70-110 H = GLUBED) GLUCOSE BEDSIDE [id number] 08:28:00 Test Item Value Reference Range Interpretation Comments GLUCOSE BEDSIDE TESTING (test code 115 mg/dL 70-110 H = GLUBED) GLUCOSE BEDSIDE [id number] 19:53:00 Test Item Value Reference Range Interpretation Comments GLUCOSE BEDSIDE TESTING (test code 147 mg/dL 70-110 H = GLUBED) GLUCOSE BEDSIDE [id number] 15:59:00 Test Item Value Reference Range Interpretation Comments GLUCOSE BEDSIDE TESTING (test code 166 mg/dL 70-110 H = GLUBED) GLUCOSE BEDSIDE [id number] 08:06:00 Test Item Value Reference Range Interpretation Comments GLUCOSE BEDSIDE TESTING (test code 158 mg/dL 70-110 H = GLUBED) NT PRO-BRAIN NATRIURETIC [id number] 05:47:00 Test Item Value Reference Range Interpretation Comments NT PRO-BRAIN NATRIURETIC PEPTI 2344 PG/ML 0-100 H (test code = PROBNP) BASIC METABOLIC [id number] 05:40:00 Test Item Value Reference Range Interpretation [...] CA) 8.4 MG/DL 8.5-10.1 L CBC W/AUTO [id number] 05:34:00 Test Item Value Reference Range Interpretation [...] = NO DIFF/SCN CRITERIA MDIFF) GLUCOSE BEDSIDE [id number] 20:46:00 Test Item Value Reference Range Interpretation Comments GLUCOSE BEDSIDE TESTING (test code 138 mg/dL 70-110 H = GLUBED) GLUCOSE BEDSIDE [id number] 16:32:00 Test Item Value Reference Range Interpretation Comments GLUCOSE BEDSIDE TESTING (test code 138 mg/dL 70-110 H = GLUBED) - XR SHOULDER 2+V [id number] 15:14:00 Name: ARMANI WILKES [facility]ly [facility] : 1950 Age/S: 69 / F [id number] [place] Unit #: [id number] Loc: [place] [address] Phys: Sona Freed MD Acct: [id number] Dis Date: Status: ADM IN PHONE #: [phone] Exam Date: 10/27/2019 1448 FAX #: Reason: RIGHT SHOULDER PAIN EXAMS: CPT: [id number] XR SHOULDER 2+V [place] [address] Fluoro Time: DAP (Gy m2): Air Kerma [...] PAGE 1 Signed Report Name: ARMANI WILKES [facility] Quan : 1950 Age/S: 69 / F [id number] [place] Unit #: [id number]: [place] [address] Phys: Sona Freed MD Acct: [id number] Dis Date: Status: ADM IN PHONE #: [phone] Exam Date: 10/27/2019 1448 FAX #: Reason: RIGHT SHOULDER PAIN EXAMS: CPT: [id number] XR SHOULDER 2+[place] [address] Fluoro Time: DAP (Gy m2): Air Kerma (mGy): <Continued> Technologist: Carmen Beckman RT(R)(CT) Trnscb Date/Time: 10/27/2019 (1513) [email or web address] Orig Print D/T: S: 10/27/2019 (1517) PAGE 2 Signed ReportGLUCOSE BEDSIDE [id number] 11:23:00 Test Item Value Reference Range Interpretation Comments GLUCOSE BEDSIDE TESTING (test code 164 mg/dL 70-110 H = GLUBED) GLUCOSE BEDSIDE [id number] 07:35:00 Test Item Value Reference Range Interpretation Comments GLUCOSE BEDSIDE TESTING (test code 158 mg/dL 70-110 H = GLUBED) CBC W/AUTO [id number] 06:49:00 Test Item Value Reference Range Interpretation [...] = NO DIFF/SCN CRITERIA MDIFF) BASIC METABOLIC [id number] 06:49:00 Test Item Value Reference Range Interpretation [...] CA) 8.4 MG/DL 8.5-10.1 L GLUCOSE BEDSIDE [id number] 21:09:00 Test Item Value Reference Range Interpretation Comments GLUCOSE BEDSIDE TESTING (test code 246 mg/dL 70-110 H = GLUBED) GLUCOSE BEDSIDE [id number] 16:54:00 Test Item Value Reference Range Interpretation Comments GLUCOSE BEDSIDE TESTING (test code 197 mg/dL 70-110 H = GLUBED) - XR FOOT 3+V [id number] 14:28:00 Name: ARMANI WILKES [place] : 1950 Age/S: 69 / F [address] [place] Unit #: [id number] Loc: [place] [address] Phys: Roberto Guy MD Acct: [id number] Dis Date: Status: ADM IN PHONE #: [phone] Exam Date: 10/26/2019 1353 FAX #: Reason: bruisingand pain EXAMS: CPT: [id number] XR FOOT 3+[place] [address] Fluoro Time: DAP (Gy m2): Air Kerma [...] MD PAGE 1Signed Report Name: [facility] : 1950 Age/S: 69 / F [address] [facility] Unit #: [id number] Loc: [place] [address] Phys: Roberto Guy MD Acct: [id number] Dis Date: Status: ADM IN PHONE #: [phone] Exam Date: 10/26/2019 1353 FAX #: Reason: bruising and pain EXAMS: CPT: [id number] XR FOOT 3+V [place] [address] Fluoro Time: DAP (Gy m2): Air Kerma (mGy): <Co ntinued> Technologist: Yakelin Nguyen, RT(R) Trnscb Date/Time: 10/26/2019 (1428) [email or web address] Orig Print D/T: S: 10/26/2019 (3741) PAGE 2 Signed Report- XR TIBIA/FIBULA 2 V [id number] 14:28:00 Name[facility] : 1950 Age/S: 69 / F [address] [facility] Unit #: [id number] Loc: [place] [address] Phys: Roberto Guy MD Acct: [id number] Dis Date: Status: ADM IN PHONE #: [phone] Exam Date: 10/26/2019 1400 FAX #: Reason: bruisingand pain EXAMS: CPT: [id number] XR TIBIA/FIBULA 2 [place] [address] Fluoro Time: DAP (Gy m2): Air Kerma [...] WILKES : 1950 Age/S: 69 / F [address] [place] Unit #: [id number] Loc: [place] [address] Phys: Roberto Guy MD Acct: [id number] Dis Date: Status: ADM IN PHONE #: [phone] Exam Date: 10/26/2019 1400 FAX #: Reason: bruising and pain EXAMS: CPT: [id number] XR TIBIA/FIBULA 2 [place] [address] Fluoro Time: DAP (Gy m2): Air Kerma (mGy): <Continued> Technologist: Yakelin Nguyne RT(R) Trnscb Date/Time: 10/26/2019 (142) [email or web address] Orig Print D/T: S: 10/26/2019 (7903) PAGE 2 Signed ReportGLUCOSE BEDSIDE [id number] 11:28:00 Test Item Value Reference Range Interpretation Comments GLUCOSE BEDSIDE TESTING (test code 177 mg/dL 70-110 H = GLUBED) GLUCOSE BEDSIDE [id number] 07:43:00 Test Item Value Reference Range Interpretation Comments GLUCOSE BEDSIDE TESTING (test code 147 mg/dL 70-110 H = GLUBED) CBC W/AUTO [id number] 07:27:00 Test Item Value Reference Range Interpretation [...] = NO DIFF/SCN CRITERIA MDIFF) BASIC METABOLIC [id number] 07:27:00 Test Item Value Reference Range Interpretation [...] CA) 8.2 MG/DL 8.5-10.1 L GLUCOSE BEDSIDE [id number] 20:12:00 Test Item Value Reference Range Interpretation Comments GLUCOSE BEDSIDE TESTING (test code 170 mg/dL 70-110 H = GLUBED) GLUCOSE BEDSIDE [id number] 16:55:00 Test Item Value Reference Range Interpretation Comments GLUCOSE BEDSIDE TESTING (test code 122 mg/dL 70-110 H = GLUBED) GLUCOSE BEDSIDE [id number] 16:55:00 Test Item Value Reference Range Interpretation Comments GLUCOSE BEDSIDE TESTING (test code 220 mg/dL 70-110 H = GLUBED) PROTHROMBIN [id number] 13:05:00 Test Item Value Reference Range Interpretation Comments PT PATIENT (test code = PTP) 14.5 SECONDS 9.3-12.9 H INTERNATIONAL NORMAL RATIO 1.28 INR Unit 0.8-1.2 H (test code = INR) GLUCOSE BEDSIDE [id number] 08:08:00 Test Item Value Reference Range Interpretation Comments GLUCOSE BEDSIDE TESTING (test code 191 mg/dL 70-110 H = GLUBED) BASIC METABOLIC [id number] 06:54:00 Test Item Value Reference Range Interpretation [...] = LDL/HDL) 2.21 Ratio 1.48-3.22 Avg N [id number] 06:52:00 Test Item Value Reference Range Interpretation Comments GLYCOSYLATED HEMOGLOBIN (HA1C) 7.8 % A1C 0.0-5.7 H (test code = GLYHGB) ESTIMATED AVERAGE GLUCOSE (test 177 MG/DLest code = EAG) CBC W/AUTO [id number] 06:42:00 Test Item Value Reference Range Interpretation [...] (test code = NO DIFF/SCN CRITERIA MDIFF) [id number] 00:35:00 Test Item Value Reference Range Interpretation [...] Completed by Nursing: NO- DUP LE ART [id number] 23:27:00 Name: ARMANI WILKES [facility]ly [facility] : 1950 Age/S: 69 / F [address] [place] Unit #: [id number] Loc: [place] [address] Phys: Que Summers TATTOO ARTIST Acct: [id number] Dis Date: Status: ADM IN PHONE #: [phone] Exam Date: 10/24/2019 4773 FAX #: Reason: HÉCTOR LOWER EXT COLD EXAMS: CPT: [id number] DUP LE ART HÉCTOR [address] HISTORY: Pain TECHNIQUE: Grayscale B-mode, color-flow, and [...] Technologist: Margaret Guevara RDMS Trnscb Date/Time: 10/24/2019 (2030) [email or web address] PAGE 1 Signed Report Name: ARMANI WILKES : 1950 Age/S: 69 / F [address] [place] Unit #: [id number] Loc: [place] [address] Phys: Que Summers NP Acct: [id number] Dis Date: Status: ADM IN PHONE #: [phone] Exam Date: 10/24/20192303 FAX #: Reason: HÉCTOR LOWER EXT COLD EXAMS: CPT: [id number] DUP LE ART HÉCTOR [address] <Continued> Orig Print D/T: S: 10/24/2019 (2224) Probe: PAGE 2 Signed ReportGLUCOSE BEDSIDE [id number] 21:49:00 Test Item Value Reference Range Interpretation Comments GLUCOSE BEDSIDE TESTING (test code 192 mg/dL 70-110 H = GLUBED) [id number] 20:33:00 Test Item Value Reference Range Interpretation [...] yby method. Completed by Nursing: NOBASIC METABOLIC [id number] 20:19:00 Test Item Value Reference Range Interpretation [...] Unit/L 26-192 N CK) NT PRO-BRAIN NATRIURETIC [id number] 20:19:00 Test Item Value Reference Range Interpretation Comments NT PRO-BRAIN NATRIURETIC PEPTI 3548 PG/ML 0-100 H (test code = PROBNP) BASIC METABOLIC [id number] 20:13:00 Test Item Value Reference Range Interpretation [...] = CK) Unit/L 26-192 NT PRO-BRAIN NATRIURETIC [id number] 20:13:00 Test Item Value Reference Range Interpretation Comments NT PRO-BRAIN NATRIURETIC PEPTI (test PG/ML 0-100 code = PROBNP) - XR CHEST 1 [id number] 20:08:00 Name: ARMANI WILKES [place] : 1950 Age/S: 69 / F [address] [place] Unit #: [id number] Loc: [place] [address] Phys: Chi Wasserman MD Acct: [id number] Dis Date: Status: ADM IN PHONE #: [phone] Exam Date: 10/24/20192004 FAX #: Reason: SOB EXAMS: CPT: [id number] XR CHEST 1 V 59646 Fluoro Time: DAP (Gy m2): Air Kerma [...] PAGE 1 Signed Report Name: ARMANI WILKES [place] : 1950 Age/S: 69 / F [address] [place] [address] Unit #: [id number] Loc:[place] [address] Phys: Chi Wasserman MD Acct: [id number] Dis Date: Status: ADM IN PHONE #: [phone] Exam Date: 10/24/20192004 FAX #: Reason: SOB EXAMS: CPT: [id number] XR CHEST 1 V 17477 Fluoro Ti me: DAP (Gy m2): Air Kerma (mGy): <Continued> Technologist: Argentina Foster RT(R)(CT)(MRI) Trnscb Date/Time: 10/24/2019 (2007) [email or web address] Orig Print D/T: S: 10/24/2019 (2011) PAGE 2 Signed ReportCBC W/O [id number] 20:06:00 Test Item Value Reference Range Interpretation [...]
[2020-01-27 15:42] LABS: Basophils % 0.3 % (0-1.3); Hematocrit 34.2 % (36.0-45.0); Lymphocytes % 31.6 % (15.3-44.8); MPV 8.6 fL (7.6-11.3); RBC Red Blood Cell Count 3.85 M/uL (3.86-4.86)
[2020-01-27 16:05] LABS: Protime INR 1.57
[2020-01-27 16:09] LABS: ALT/SGPT 26 U/L (12-78); AST/SGOT 36 U/L (15-37); Albumin 3.3 g/dL (3.4-5.0); Alkaline Phosphatase 67 U/L (45-117); BUN Blood Urea Nitrogen 50 mg/dL (7-18); Bicarbonate 26 mmol/L (21-32); Bilirubin Direct 0.2 mg/dL (0-0.2); Bilirubin Total 0.6 mg/dL (0.2-1.0); Glucose Level 120 mg/dL (74-106); Magnesium 2.1 mg/dL (1.8-2.4); NT PRO-BNP 527 pg/mL (<125); Potassium 4.8 mmol/L (3.5-5.1); Protein, Total 6.7 g/dL (6.4-8.2); Sodium Level 130 mmol/L (136-145); Troponin (Emerg Dept Use Only) < 0.02 ng/mL (0.0-0.045)
[2020-01-27] MEDS ORDERED: FAMOTIDINE 20 MG/2 ML VIAL IV ONE (16:09)
[2020-01-27] MEDS ORDERED: NA CHLORIDE 0.9% 1,000 ML ONE (16:09)
[2020-01-27] MEDS ORDERED: ONDANSETRON 4 MG/2 ML VIAL ONE (16:09)
--- NOTE | 2020-01-27 16:13 | RAD REPORT ---
EXAM DESCRIPTION: RAD - Chest Single View - 01/27/2020 3:51 pm CLINICAL HISTORY: CHEST PAIN COMPARISON: Portable January 24 TECHNIQUE: AP portable chest image was obtained 01/27/2020 3:51 pm . FINDINGS: No focal lung parenchymal process. Interstitial pattern matches comparison. Chronic inters titial changes are evident. Heart and vasculature are normal. No measurable pleural effusion and no p neumothorax. No acute bony abnormality seen. No acute aortic findings suspected. IMPRESSION: Chronic interstitial changes similar to comparison. No acute finding.
--- NOTE | 2020-01-27 16:53 | RAD REPORT ---
EXAM DESCRIPTION: CT - Abdomen Pelvis Wo Contrast - 01/27/2020 4:37 pm CLINICAL HISTORY: ABD PAIN COMPARISON: No comparisons TECHNIQUE: Axial [address] imaging of the abdomen and pelvis was performed without IV contrast. No IV contrast was given because of allergy, abnormal renal function, patient refusal or physician re quest. No oral contrast administered. All CT scans are performed using dose optimization technique as appropriate and may include automated exposure control or mA/KV adjustment according to patient size. FINDINGS: No suspicious findings in the lung bases. Liver and pancreas show no suspicious findings on noncontrast imaging. Spleen is normal size. In the central spleen a 3 centimeter homogeneous low-density round mass is present. In the inferior spleen 8 0 round 3.1 centimeter mass present. Gallbladder size is normal. Hyperdense material layers on the de pendent portion suspected to be sludge. No biliary tree dilatation. No hydronephrosis or suspicious renal mass. No significant adrenal finding. Isodense renal masses an d pyelonephritis cannot be excluded in the absence of IV contrast. The urinary bladder is without sig nificant finding. Uterus and ovaries show no suspicious findings. No gastric wall thickening or mass. Food and fluid are in the stomach lumen and there are normal air densities trapped within mucosal folds. Pneumatosis intestinalis of the gastric wall is not suspected . Focal rounded density in the antrum is believed to be food rather than a mass or polyp. No dilated large or small bowel loops. Moderate stool volume is present in the colon. No wall thickening or mass of the colon identifiable. Diverticulosis is minimal. No free air, pneumatosis or free fluid. No peritoneal or retroperitoneal inflammatory stranding. No hernia, mass or bulky lymphadenopathy. The patient has some congestion or edema in the subcutaneous fatty tissues along each gluteal fold. No air in the soft tissues. There are skin fold artifacts due to the way the patient was placed on the CT scanner did. No acute or destructive bone process. Hip joints and SI joint degenerative changes are present. Patie nt has prominent lower lumbar facet joint degenerative change. Limited wedge compression deformities of the L1 and L5 bodies believed to be chronic. No acute fracture line seen. IMPRESSION: No acute CT abdomen or pelvic finding identifiable. Hyperdense material layering in the dependent portion the gallbladder probably sludge. No wall thicke christian, pericholecystic fluid or biliary tree abnormality. Patient has to 3 centimeter size rounded low-density masses in the spleen probably incidental cysts. Long-term significance doubtful. Mild congestion or edema in the subcutaneous fatty tissues near each gluteal fold. No air in the soft tissues. Correlation can be made with any physical exam findings. Full assessment is limited is the absence of IV contrast.
--- NOTE | 2020-01-27 19:56 | EDPHYS ---
Physician Documentation [facility] Name: Erum Mckay Age: 69 yrs Sex: Female : 1950 Arrival Date: 01/27/2020 Time: 14:36 Bed 8 Private MD: ED Physician Jaziel Liu HPI: 01/26 15:20 This 69 yrs old Female presents to ER via Wheelchair with complaints of Blood cp Pressure Problem, Nausea, Chest Pain, Abdominal Pain. 15:20 The patient presents with abdominal pain mid abdomen. cp 15:20 Onset: The symptoms/episode began/occurred 3 day(s) ago. Associated signs and symptoms: cp Pertinent positives: nausea and vomiting, anorexia, Pertinent negatives: blood in stools, constipation, diarrhea, fever, vomiting blood. The symptoms are described as constant. Modifying factors: the symptoms are aggravated by pressure. Severity of pain: in the emergency department the pain is unchanged despite home interventions. 15:20 The patient has been recently seen at the [facility] Emergency cp Department, this week, for similar complaints labs were performed, was given a prescription for an antiemetic. Historical: - Allergies: 15:00 PENICILLINS; ca1 - PMHx: 15:00 Atrial Fib; CHF; Diabetes - IDDM; ca1 - Immunization history:: Adult Immunizations up to date. - Social history:: Smoking status: Patient denies any tobacco usage or history of. ROS: 15:30 Constitutional: Positive for poor PO intake, Negative for body aches, chills, fever. cp 15:30 Eyes: Negative for injury, pain, redness, and discharge. cp 15:30 ENT: Negative for ear pain, sore throat, difficulty swallowing, difficulty handling secretions. 15:30 Cardiovascular: Positive for chest pain, Negative for edema, palpitations. 15:30 Respiratory: Negative for cough, shortness of breath, wheezing. 15:30 Abdomen/GI: Positive for abdominal pain, nausea and vomiting, Negative for diarrhea, constipation, hematemesis, black/tarry stool, rectal bleeding. 15:30 : Negative for urinary symptoms. 15:30 Skin: Negative for rash. 15:30 Neuro: Positive for weakness, Negative for altered mental status, headache, loss of consciousness, syncope. 15:30 All other systems are negative. Exam: 15:35 Constitutional: The patient appears in no acute distress, alert, awake, cp non-diaphoretic, non-toxic, well developed, well nourished. 15:35 Head/Face: Normocephalic, atraumatic. cp 15:35 Eyes: Periorbital structures: appear normal, Conjunctiva: normal, no exudate, no injection, Sclera: no appreciated abnormality, Lids and lashes: appear normal, bilaterally. 15:35 ENT: External ear(s): are unremarkable, Nose: is normal, Mouth: Lips: dry, Oral mucosa: moist, Posterior pharynx: is normal, airway is patent, no erythema, no exudate. 15:35 Neck: ROM/movement: is normal, is supple, without pain, no range of motions limitations, no meningismus. 15:35 Chest/axilla: Inspection: normal, Palpation: is normal, no crepitus, no tenderness. 15:35 Cardiovascular: Rate: normal, Rhythm: regular, Edema: is not appreciated, JVD: is not appreciated. 15:35 Respiratory: the patient does not display signs of respiratory distress, Respirations: normal, no use of accessory muscles, no retractions, labored breathing, is not present, Breath sounds: are clear throughout, no decreased breath sounds, no stridor, no wheezing. 15:35 Abdomen/GI: Inspection: abdomen appears normal, Bowel sounds: active, all quadrants, Palpation: soft, in all quadrants, moderate abdominal tenderness, in the mid abdomen, rebound tenderness, is not appreciated, involuntary guarding, is elicited in the mid abdomen. 15:35 Back: CVA tenderness, is absent. 15:35 Skin: no rash present. 15:35 Neuro: Orientation: to person, place \\T\\ time. Mentation: is normal, Cerebellar function: is grossly normal, Motor: moves all fours, general weakness with focal deficits, Sensation: is normal. 16:11 ECG was reviewed by the Attending Physician. cp Vital Signs: 14:42 BP 87 / 52 RA; Pulse 68; Resp 18 S; Temp 97.7(TE); Pulse Ox 99% on R/A; Weight 63.5 kg ca1 (R); Height 5 ft. 6 in. (167.64 cm) (R); 14:42 BP 76 / 49 LA; ca1 15:19 BP 85 / 59; Pulse 66; Resp 18; Pulse Ox 99% on R/A; ph 16:00 BP 89 / 57; Pulse 66; Resp 16; Pulse Ox 98% on R/A; ph 17:00 BP 93 / 57; Pulse 64; Resp 18; Pulse Ox 99% on R/A; ph 18:02 BP 89 / 57; Pulse 62; Resp 18; Pulse Ox 100% on R/A; ph 19:00 BP 102 / 61; Pulse 66; Resp 22; Pulse Ox 99% on R/A; mt 19:55 BP 96 / 70 Supine; Pulse 63; Resp 12; Pulse Ox 100% on R/A; lp1 20:00 BP 106 / 55 Sitting; Pulse 66; Resp 16; Pulse Ox 100% on R/A; lp1 20:05 BP 119 / 108 Standing; Pulse 66; Resp 16; Pulse Ox 100% on R/A; lp1 20:40 BP 107 / 65; Pulse 62; Resp 20; Pulse Ox 100% on R/A; lp1 21:00 BP 106 / 56; Pulse 61; Resp 20; Temp 97.6(O); Pulse Ox 100% on R/A; Pain 0/10; lp1 22:39 BP 97 / 66; Pulse 61; Resp 17; Pulse Ox 100% on R/A; lp1 14:42 Body Mass Index 22.60 (63.50 kg, 167.64 cm) ca1 20:05 Patient states feeling dizzy, "seeing white" lp1 MDM: 15:34 Patient medically screened. cp 16:00 Differential diagnosis: cholecystitis, Cholelithiasis, diverticulitis, gastritis, cp non-specific abd pain, pancreatitis, Pyelonephritis, Ureterolithiasis, urinary tract infection, sepsis, dehydration. 18:15 Data reviewed: vital signs, nurses notes, lab test result(s), EKG, radiologic studies, cp plain films. 18:15 Test interpretation: by ED physician or midlevel provider: ECG. cp 19:15 ED course: VS noted. Blood pressure continues to remain low after IV fluids. Will admit cp for continued IV fluids. 19:15 Physician consultation: Victor M Arreguin was called at 19:15, unable to leave message. cp 19:53 Physician consultation: Victor M Arreguin was called at 19:53, unable to leave message. cp 01/26 15:15 Order name: Basic Metabolic Panel; Complete Time: 16:25 ph 08/05 16:25 Interpretation: Normal except: NA 130; CL 94; GLUC 120; BUN 50; CRE 1.62; GFR 32. cp / 15:15 Order name: CBC with Diff; Complete Time: 16:25 ph 08/05 16:25 Interpretation: Normal except: WBC 9.6; RBC 3.85; HCT 34.2. cp / 15:15 Order name: LFT's; Complete Time: 16:25 ph 08 16:57 Interpretation: Normal except: ALB 3.3; A/G 1.0. cp / 15:15 Order name: Magnesium; Complete Time: 16:25 ph / 18:07 Interpretation: Reviewed. cp / 15:15 Order name: NT PRO-BNP; Complete Time: 16:25 ph 08/ 17:34 Interpretation: NT PRO-BNP 527; Reviewed. cp / 15:15 Order name: PT-INR; Complete Time: 16:25 ph 08 16:57 Interpretation: Abnormal: PT 18.4. cp / 15:15 Order name: Troponin (emerg Dept Use Only); Complete Time: 16:25 ph 01/26 18:06 Interpretation: Reviewed. cp / 15:33 Order name: Lipase; Complete Time: 16:55 cp / 16:55 Interpretation: Abnormal: LIP 699. cp / 15:33 Order name: COVID-19 cp / 15:33 Order name: Flu; Complete Time: 19:14 cp / 19:14 Interpretation: Reviewed. cp / 15:33 Order name: Procalcitonin; Complete Time: 18:04 cp / 18:04 Interpretation: Reviewed. cp / 15:33 Order name: Lactate; Complete Time: 16:55 cp / 15:33 Order name: Blood Culture Adult (2) cp / 15:33 Order name: Urine Microscopic Only cp /05 15:15 Order name: XRAY Chest (1 view); Complete Time: 16:25 ph 08/05 18:07 Interpretation: Report review. cp / 15:15 Order name: EKG; Complete Time: 15:16 ph / 15:15 Order name: Cardiac monitoring; Complete Time: 15:16 ph 0805 15:15 Order name: EKG - Nurse/Tech; Complete Time: 15:16 ph 01/26 15:15 Order name: IV Saline Lock; Complete Time: 15:16 ph 01/26 15:15 Order name: Labs collected and sent; Complete Time: 15:16 ph 01/26 15:15 Order name: O2 Per Protocol; Complete Time: 15:16 ph 01/26 15:15 Order name: O2 Sat Monitoring; Complete Time: 15:16 ph 01/26 16:26 Order name: Abdomen ; Complete Time: 16:55 EDCO 01/26 20:52 Order name: Urine Dipstick--Ancillary (enter results) 2 01/26 22:00 Order name: Urine Culture EDCO 01/26 15:33 Order name: Urine Dipstick-Ancillary (obtain specimen); Complete Time: 20:58 cp EC:11 Rate is 67 beats/min. Rhythm is regular. IA interval is normal. QRS interval is normal. cp QT interval is normal. T waves are Inverted in leads aVL, aVR. Interpreted by me. Reviewed by me. Administered Medications: 16:15 Drug: Pepcid 20 mg Route: IVP; Site: right antecubital; ph 18:08 Follow up: Response: No adverse reaction ph 16:15 Drug: NS 0.9% 1000 ml Route: IV; Rate: 1000 ml/hr; Site: right antecubital; ph 20:12 Follow up: IV Status: Completed infusion; IV Intake: 1000ml lp1 22:41 Not Given (Patient Refused): Zofran (Ondansetron) 4 mg IVP once; over 2 minutes lp1 Disposition: 01/27 08:12 Co-signature as Attending Physician, Jaziel iLu MD I agree with the assessment and kdr plan of care. Disposition: 01/27/20 19:55 Hospitalization ordered by Victor M Arreguin for Observation. Preliminary diagnosis are Nausea and vomiting, Dehydration, Hypotension, unspecified. - Bed requested for Telemetry/MedSurg (observation). - Status is Observation. lp1 - Condition is Stable. - Problem is new. - Symptoms have improved. Signatures: Dispatcher [employer] [facility] Jaziel Liu MD MD kdr Destini Salinas RN RN lp1 Sirena Dykes RN RN tl1 Cortney Jo RN RN ph Anika, Bravo, PA PA cp Judy Arauz, RN RN ca1 Corrections: (The following items were deleted from the chart) 01/26 16:26 15:34 Abdomen Pelvis W Con+CT.RAD.BRZ ordered. EDMS EDMS 19:56 19:55 Hospitalization Ordered by Victor M Arreguin for Observation. Preliminary diagnosis cp is Nausea and vomiting; Dehydration. Bed requested for Telemetry/MedSurg (observation). Status is Observation. Condition is Stable. Problem is new. Symptoms have improved. cp 20:12 15:33 Droplet/Contact Precautions ordered. cp lp1 20:12 15:33 Notify Health Dept [phone]/ ordered. cp lp1 20:13 15:33 Document PUI# ordered. cp lp1 22:05 19:56 01/27/2020 19:55 Hospitalization Ordered by Victor M Arreguin for Observation. tl1 Preliminary diagnosis is Nausea and vomiting; Dehydration; Hypotension, unspecified. Bed requested for Telemetry/MedSurg (observation). Status is Observation. Condition is Stable. Problem is new. Symptoms have improved. cp 22:48 22:05 01/27/2020 19:55 Hospitalization Ordered by Victor M Arreguin for Observation. lp1 Preliminary diagnosis is Nausea and vomiting; Dehydration; Hypotension, unspecified. Bed requested for Telemetry/MedSurg (observation). Status is Observation. Condition is Stable. Problem is new. Symptoms have improved. tl1
--- NOTE | 2020-01-27 19:56 | ER ---
Nurse's Notes [facility] Name: Erum Mckay Age: 69 yrs Sex: Female : 1950 Arrival Date: 01/27/2020 Time: 14:36 Bed 8 Private MD: Diagnosis: Nausea and vomiting;Dehydration;Hypotension, unspecified Presentation: 01/26 14:42 Chief complaint: Patient's son or daughter states: Upper abdominal pain since this ca1 morning. Reports N/V. Been checking the BP daily, and BP this morning was 90/56, repeated after 20-30 minutes and has dropped down to 70/53. We came to the ER right away. Chest pain for at least a week. Ebola Screen: Patient negative for fever greater than or equal to 101.5 degrees Fahrenheit, and additional compatible Ebola Virus Disease symptoms Patient denies exposure to infectious person. Patient denies travel to an Ebola-affected area in the 21 days before illness onset. No symptoms or risks identified at this time. Initial Sepsis Screen: Does the patient meet any 2 criteria? No. Patient's initial sepsis screen is negative. Does the patient have a suspected source of infection? No. Patient's initial sepsis screen is negative. Risk Assessment: Do you want to hurt yourself or someone else? Patient reports no desire to harm self or others. Onset of symptoms was January 27, 2020. 14:42 Method Of Arrival: Wheelchair ca1 14:42 Acuity: VIRGILIO 2 ca1 14:57 Coronavirus screen: Client denies travel out of the [place] in the last 14 days. cough ca1 unrelated to allergies, diarrhea, fatigue, nausea, shortness of breath, sore throat, vomiting. Client presents with at least one sign or symptom that may indicate coronavirus-19. Standard/surgical mask placed on the client. Provider contacted for isolation considerations. Client reports previous positive COVID test result. Date of collection: December 2019 3 weeks ago [facility] Staff notified of need for isolation. Retest Was done 01/25/2020, pending result. Historical: - Allergies: 15:00 PENICILLINS; ca1 - PMHx: 15:00 Atrial Fib; CHF; Diabetes - IDDM; ca1 - Immunization history:: Adult Immunizations up to date. - Social history:: Smoking status: Patient denies any tobacco usage or history of. Screenin:16 Abuse screen: Denies threats or abuse. Denies injuries from another. Nutritional ph screening: No deficits noted. Tuberculosis screening: No symptoms or risk factors identified. Fall Risk None identified. Assessment: 15:17 General: Appears in no apparent distress. comfortable, well groomed, Behavior is calm, ph cooperative, appropriate for age, Denies fever. Pain: Complains of pain in epigastric area, right upper quadrant and left upper quadrant. Neuro: Level of Consciousness is awake, alert, obeys commands, Oriented to person, place, time, situation. Cardiovascular: Reports fatigue, lightheadedness, nausea, low BP at home Capillary refill < 3 seconds in bilateral fingers Patient's skin is warm and dry. Respiratory: Airway is patent Respiratory effort is even, unlabored, Respiratory pattern is regular, symmetrical. GI: Abdomen is non-distended, Reports upper abdominal pain, nausea, Patient currently denies diarrhea, vomiting. Derm: Skin is intact, Skin is pink, warm \\T\\ dry. Musculoskeletal: Circulation, motion, and sensation intact. Range of motion: intact in all extremities. 16:00 Reassessment: Patient appears in no apparent distress at this time. Patient and/or ph family updated on plan of care and expected duration. Pain level reassessed. Patient is alert, oriented x 3, equal unlabored respirations, skin warm/dry/pink. 17:03 Reassessment: Patient appears in no apparent distress at this time. Patient and/or ph family updated on plan of care and expected duration. Pain level reassessed. Patient is alert, oriented x 3, equal unlabored respirations, skin warm/dry/pink. 18:03 Reassessment: Patient appears in no apparent distress at this time. Patient and/or ph family updated on plan of care and expected duration. Pain level reassessed. Patient is alert, oriented x 3, equal unlabored respirations, skin warm/dry/pink. Pt denies nausea at this time. 20:00 Reassessment: Patient states continuing to feel dizzy; Orthostatics performed, upon lp1 standing patient states "I'm seeing white everywhere". 20:40 Reassessment: Assisted patient to bathroom at this time; steady gait noted for transfer lp1 to . 21:30 Reassessment: Patient appears in no apparent distress at this time. No changes from lp1 previously documented assessment. Patient is alert, oriented x 3, equal unlabored respirations, skin warm/dry/pink. 22:39 Reassessment: Patient ambulating around room, steady gait noted; states feeling better. lp1 Vital Signs: 14:42 BP 87 / 52 RA; Pulse 68; Resp 18 S; Temp 97.7(TE); Pulse Ox 99% on R/A; Weight 63.5 kg ca1 (R); Height 5 ft. 6 in. (167.64 cm) (R); 14:42 BP 76 / 49 LA; ca1 15:19 BP 85 / 59; Pulse 66; Resp 18; Pulse Ox 99% on R/A; ph 16:00 BP 89 / 57; Pulse 66; Resp 16; Pulse Ox 98% on R/A; ph 17:00 BP 93 / 57; Pulse 64; Resp 18; Pulse Ox 99% on R/A; ph 18:02 BP 89 / 57; Pulse 62; Resp 18; Pulse Ox 100% on R/A; ph 19:00 BP 102 / 61; Pulse 66; Resp 22; Pulse Ox 99% on R/A; mt 19:55 BP 96 / 70 Supine; Pulse 63; Resp 12; Pulse Ox 100% on R/A; lp1 20:00 BP 106 / 55 Sitting; Pulse 66; Resp 16; Pulse Ox 100% on R/A; lp1 20:05 BP 119 / 108 Standing; Pulse 66; Resp 16; Pulse Ox 100% on R/A; lp1 20:40 BP 107 / 65; Pulse 62; Resp 20; Pulse Ox 100% on R/A; lp1 21:00 BP 106 / 56; Pulse 61; Resp 20; Temp 97.6(O); Pulse Ox 100% on R/A; Pain 0/10; lp1 22:39 BP 97 / 66; Pulse 61; Resp 17; Pulse Ox 100% on R/A; lp1 14:42 Body Mass Index 22.60 (63.50 kg, 167.64 cm) ca1 20:05 Patient states feeling dizzy, "seeing white" lp1 ED Course: 14:36 Patient arrived in ED. fj1 14:42 Arm band placed on right wrist. ca1 14:48 Triage completed. ca1 14:53 Cortney Jo, RN is Primary Nurse. ph 15:12 EKG done, by ED staff, reviewed by Jaziel Liu MD. mt 15:16 Initial lab(s) drawn, by id, sent to lab. Inserted saline lock: 22 gauge in right ph antecubital area, using aseptic technique. Blood collected. 15:17 Patient has correct armband on for positive identification. Placed in gown. Bed in low ph position. Call light in reach. Side rails up X 1. vehicle monitor technician on. Pulse ox on. NIBP on. Door closed. Noise minimized. Warm blanket given. 15:22 Bravo Donaldson PA is PHCP. cp 15:22 Jaziel Liu MD is Attending Physician. cp 15:52 XRAY Chest (1 view) In Process Unspecified. EDMS 16:37 Abdomen In Process Unspecified. EDMS 18:40 No provider procedures requiring assistance completed. ph 19:54 Victor M Arreguin is Hospitalizing Provider. cp 20:11 Patient admitted, IV remains in place. lp1 Administered Medications: 16:15 Drug: Pepcid 20 mg Route: IVP; Site: right antecubital; ph 18:08 Follow up: Response: No adverse reaction ph 16:15 Drug: NS 0.9% 1000 ml Route: IV; Rate: 1000 ml/hr; Site: right antecubital; ph 20:12 Follow up: IV Status: Completed infusion; IV Intake: 1000ml lp1 22:41 Not Given (Patient Refused): Zofran (Ondansetron) 4 mg IVP once; over 2 minutes lp1 Intake: 20:12 IV: 1000ml; Total: 1000ml. lp1 Outcome: 19:55 Decision to Hospitalize by Provider. cp 20:10 Condition: stable lp1 20:10 Instructed on the need for admit. 22:31 Admitted to Med/surg accompanied by tech, via wheelchair, room 212, with chart, Report lp1 called to ARTI Lea 22:48 Patient left the ED. lp1 Signatures: Dispatcher [employer] EDMS Destini Salinas, RN RN lp1 Cortney Jo RN RN Bravo Donaldson PA PA cp Thompson, [facility] Judy Arauz RN RN [facility] Duy Steinberg [facility]
[2020-01-27 21:58] LABS: Urine Bacteria <20 /HPF (<20); Urine Culture Reflex Order REFLEXED; Urine RBC <5 /HPF (NONE SEEN)
[2020-01-27 22:05] LABS: Urine Blood TRACE (NEG); Urine Glucose NEGATIVE (NEG); Urine Protein NEGATIVE (NEG); Urine Specific Gravity 1.015 (1.005-1.030); Urine pH 5.5 (5.0-7.0)
--- NOTE | 2020-01-27 22:05 | P.HP ---
Certification for Inpatient Patient admitted to: Observation With expected LOS: <2 Midnights Practitioner: I am a practitioner with admitting privileges, knowledge of patient current condition, hospital course, and medical plan of care. Services: Services provided to patient in accordance with Admission requirements found in Title 42 Section 412.3 of the Code of Federal Regulations Patient History Date of Service: 01/27/20 Reason for admission: Generalized weakness, vomiting and diarrhea History of Present Illness: 69-year-old woman with a history of atrial fibrillation, diabetes mellitus type 2, hypertension presented emergency department with a complaint of generalized weakness, nausea and vomiting and diarrhea and low blood pressure. Patient states his symptoms have been present for about 3 days. She tested positive for COVID 19 about 2 weeks ago. Her test was repeated 2 days ago and according to the patient it came back negative. She was in the emergency department 2 days ago for nausea and vomiting. Her lipase level was elevated. Patient was given IV hydration and discharged home. His lipase level remain elevated today. CT abdomen and pelvis demonstrated gallbladder sludge. Her blood pressure was low in the ED with systolic blood down to the 70s. Patient was given IV fluid bolus which has increased her systolic blood pressures to the low 100s. UA is pending. Patient is admitted for further management. - Past Medical/Surgical History -: Hypertension -: Chronic atrial fibrillation -: Diabetes mellitus type 2 - Family History Sister -: Diabetes - Social History Smoking Status: Never smoker Alcohol use: No CD- Drugs: No Place of Residence: Home Review of Systems Other: Except as documented, all other systems reviewed and negative Physical Examination - Physical Exam General: Alert, In no apparent distress, Oriented x3 HEENT: Mucous membr. moist/pink, Sclerae nonicteric Neck: Supple, JVD not distended, No Thyromegaly Respiratory: Clear to auscultation bilaterally, Normal air movement Cardiovascular: No edema, Regular rate/rhythm, Normal S1 S2 Gastrointestinal: Normal bowel sounds, Soft and benign, Non-distended, No tenderness Musculoskeletal: No swelling, No erythema Integumentary: No rashes Neurological: Normal speech, Normal strength at 5/5 x4 extr, Cranial nerves 3-12 intact - Studies Laboratory Data (last 24 hrs) 01/27/20 16:10: Lipase 699 H 01/27/20 15:15: PT 18.4 H, INR 1.57 01/27/20 15:15: WBC 9.6 D, Hgb 12.1, Hct 34.2 L, Plt Count 254 01/27/20 15:15: Sodium 130 L, Potassium 4.8, BUN 50 H, Creatinine 1.62 H, Glucose 120 H, Magnesium 2.1, Total Bilirubin 0.6, AST 36, ALT 26, Alkaline Phosphatase 67 Microbiology Data (last 24 hrs): 01/27/20 18:15 Nasopharnyx Influenza Type A Antigen Screen - Final 01/27/20 18:15 Nasopharnyx Influenza Type B Antigen Screen - Final Assessment and Plan - Problems (Diagnosis) (1) Hypovolemic shock Current Visit: Yes Status: Acute (2) Acute pancreatitis Current Visit: Yes Status: Acute (3) Gastroenteritis Current Visit: Yes Status: Acute (4) History of 2019 novel coronavirus disease (COVID-19) Current Visit: Yes Status: Acute (5) Diabetes mellitus type 2 in nonobese Current Visit: Yes Status: Acute (6) Chronic atrial fibrillation Current Visit: Yes Status: Acute (7) Acute renal failure Current Visit: Yes Status: Acute - Plan Admit to the medical floor. Continue IV hydration with normal saline. Monitor blood pressure closely Supportive measures-clear liquid diet, antiemetics. Follow urinalysis to assess for UTI. Monitor renal function. Insulin sliding scale for glucose management. Hold antihypertensives. - Advance Directives Does patient have a Living Will: No Does patient have a Durable POA for Healthcare: No
[2020-01-27] MEDS ORDERED: ACETAMINOPHEN 500 MG TAB PO PRN (22:49)
[2020-01-27] MEDS ORDERED: ONDANSETRON 4 MG/2 ML VIAL IV PRN (22:49)
[2020-01-28 00:26] VITALS: O2SAT 100; BMI 23.0
[2020-01-28] MEDS: NA CHLORIDE 0.9% 1,000 ML IV SCH ×2 (00:39→08:49)
[2020-01-28] MEDS ORDERED: HEPARIN 5000 UNIT/ML 1 ML VIAL SQ SCH (01:00)
[2020-01-28 05:39] LABS: Absolute Lymphocytes (CBC) 2.9 K/uL (0.7-4.9); Basophils % 0.3 % (0-1.3); Hematocrit 30.8 % (36.0-45.0); Lymphocytes % 38.4 % (15.3-44.8); MPV 8.5 fL (7.6-11.3); RBC Red Blood Cell Count 3.46 M/uL (3.86-4.86)
[2020-01-28 05:48] LABS: Albumin 2.9 g/dL (3.4-5.0); Bilirubin Total 0.6 mg/dL (0.2-1.0); Magnesium 2.1 mg/dL (1.8-2.4); Phosphorus 3.5 mg/dL (2.5-4.9); Protein, Total 5.8 g/dL (6.4-8.2)
[2020-01-28] MEDS: INSULIN -REGULAR HUMAN 50 UNIT/0.5 ML ML SQ SCH ×2 (07:30→11:30)
[2020-01-28] MEDS ORDERED: ASPIRIN 81 MG CHEWABLE TABLET PO SCH (09:00)
[2020-01-28] MEDS ORDERED: AMIODARONE HCL 200 MG TAB PO SCH (09:00)
[2020-01-28] MEDS ORDERED: APIXABAN 5 MG TABLET PO SCH (09:00)
--- NOTE | 2020-01-28 13:11 | P.DS ---
Admission Date: 01/27/20 Discharge Date: 01/28/20 Disposition: ROUTINE DISCHARGE Discharge Condition: GOOD Reason for Admission: Generalized weakness, vomiting and diarrhea Hospital Course: Patient is a 69 year old female with a PMH of HTN, Atrial fibgrilllation on systemic AC, CKD 3 AND type II diabetes mellitus who presented with gastroenteritis. She was hypotensive on admission and responded to volume repletion. She is cleared for discharge. I will hold her anti-HTN medications due to hypotension: amlodipine, metoprolol, spironolactone and furosemide. Vital Signs/Physical Exam: Temp Pulse Resp BP Pulse Ox 96.7 F L 69 69 H 100/59 L 100 01/28/20 08:00 01/28/20 08:00 01/28/20 08:00 01/28/20 08:00 01/28/20 08:00 General: Alert, In no apparent distress, Cooperative HEENT: Atraumatic, Normocephalic, EOMI Neck: Supple Respiratory: Clear to auscultation bilaterally, Normal air movement Cardiovascular: No edema, Normal pulses, Regular rate/rhythm, Normal S1 S2 Gastrointestinal: Normal bowel sounds, Soft and benign, Non-distended, No tenderness Musculoskeletal: No clubbing, No swelling, No contractures, No erythema, No tenderness, No warmth Neurological: Normal speech, Sensation intact, Normal affect Laboratory Data at Discharge: WBC 7.5 K/uL (4.3-10.9) D 01/28/20 05:03 Hgb 11.1 g/dL (12.0-15.0) L 01/28/20 05:03 Hct 30.8 % (36.0-45.0) L 01/28/20 05:03 Plt Count 200 K/uL (152-406) D 01/28/20 05:03 PT 18.4 SECONDS (9.5-12.5) H 01/27/20 15:15 INR 1.57 01/27/20 15:15 Sodium 135 mmol/L (136-145) L 01/28/20 05:03 Potassium 4.0 mmol/L (3.5-5.1) 01/28/20 05:03 BUN 40 mg/dL (7-18) H 01/28/20 05:03 Creatinine 1.17 mg/dL (0.55-1.3) 01/28/20 05:03 Glucose 70 mg/dL (74-106) L 01/28/20 05:03 Phosphorus 3.5 mg/dL (2.5-4.9) 01/28/20 05:03 Magnesium 2.1 mg/dL (1.8-2.4) 01/28/20 05:03 Total Bilirubin 0.6 mg/dL (0.2-1.0) 01/28/20 05:03 AST 31 U/L (15-37) 01/28/20 05:03 ALT 22 U/L (12-78) 01/28/20 05:03 Alkaline Phosphatase 56 U/L (45-117) 01/28/20 05:03 Triglycerides 144 mg/dL (<150) 01/28/20 05:03 Cholesterol 126 mg/dL (<200) 01/28/20 05:03 HDL Cholesterol 46 mg/dL (40-60) 01/28/20 05:03 Cholesterol/HDL Ratio 2.74 01/28/20 05:03 Lipase 476 U/L (73-393) H 01/28/20 05:03 Home Medications: Amiodarone HCl [Cordarone*] 200 mg PO DAILY 01/28/20 Apixaban [Eliquis] 5 mg PO BID 01/28/20 Aspirin Chewable [Aspirin Chewable*] 81 mg PO DAILY 01/28/20 Atorvastatin Calcium [Lipitor*] 10 mg PO DAILY 01/28/20 Promethazine Tab [Phenergan*] 25 mg PO Q6HP PRN 01/28/20
[2020-01-28 14:44] VITALS: BP 161/63; TEMP 97
[2020-01-28] MEDS ORDERED: ATORVASTATIN 10 MG TAB PO SCH (21:00)
== END 2020-01-28 16:08 | disposition home or self-care (01) ==
LOC: ER 14:34 → ERHOLD 21:49 → 2ND 22:34
PROVIDERS: ADMIT Internal Medicine; ATTEND Internal Medicine
DX: R57.1 Hypovolemic shock (principal); K52.9 Noninfective gastroenteritis and colitis, unspecified; K85.90 Acute pancreatitis without necrosis or infection, unspecified; E11.22 Type 2 diabetes mellitus with diabetic chronic kidney disease; I13.0 Hypertensive heart and chronic kidney disease with heart failure and stage 1 through stage 4 chronic kidney disease, or unspecified chronic kidney disease; N18.3 Chronic kidney disease, stage 3 (moderate); N17.9 Acute kidney failure, unspecified; I50.9 Heart failure, unspecified; I48.20 Chronic atrial fibrillation, unspecified; I95.9 Hypotension, unspecified; Z86.19 Personal history of other infectious and parasitic diseases; Z79.01 Long term (current) use of anticoagulants; Z88.0 Allergy status to penicillin; Z83.3 Family history of diabetes mellitus
CPT/HCPCS: 96361; 93005; 87040 ×2; 87088; 85025 ×2; 87086; 80048; 36415; 83735 ×2; 84100; 85610; 80061; 82947 ×2; 80076; 83605; 84484; 83690 ×2; 80053; 84145; 83880; 87804 ×2; 74176; 71045; 96374; 99285; J1644; J7030 ×3; G0378 ×2; 81003; 81015; J2405

== ENCOUNTER 2020-10-05 22:16 | Emergency (ER) | payer OTHER ==
--- NOTE | 2020-10-06 00:23 | EDPHYS ---
Physician Documentation [facility] Name: Erum Mckay Age: 70 yrs Sex: Female : 1950 Arrival Date: 10/05/2020 Time: 22:18 Bed 25 Private MD: ED Physician Terry Burton HPI: 10/06 00:16 This 70 yrs old Female presents to ER via Ambulatory with complaints of cp Redness of Eye, Eye Problem, Dizziness. 00:16 The patient is experiencing redness, to the right eye, caused by an unknown mechanism. cp Onset: The symptoms/episode began/occurred this morning. Associated signs and symptoms: Pertinent positives: None. Pertinent negatives: fever, injury. Patient wears glasses. Historical: - Allergies: 10/05 22:44 PENICILLINS; bb - Home Meds: 22:46 metformin Oral [Active]; amiodarone Oral [Active]; Eliquis 2.5 mg oral tab 1 tab 2 bb times per day [Active]; Spironolactone Oral [Active]; Metoprolol Tartrate Oral [Active]; Furosemide Oral [Active]; - PMHx: 22:44 Atrial Fib; CHF; Diabetes - IDDM; Hypertension; bb - PSHx: 22:44 None; bb - Immunization history:: Adult Immunizations up to date. - Social history:: Smoking status: Patient denies any tobacco usage or history of. ROS: 10/06 00:17 Constitutional: Negative for body aches, chills, fever, poor PO intake. cp Eyes: Positive for redness, of the outer aspect of conjuctiva of right eye, Negative for injury or acute deformity, visual disturbance. Cardiovascular: Negative for chest pain. Respiratory: Negative for cough, shortness of breath, wheezing. Abdomen/GI: Negative for abdominal pain, nausea, vomiting, and diarrhea. Skin: Negative for cellulitis, rash. Neuro: Negative for altered mental status, headache, syncope, weakness. All other systems are negative. Exam: 00:19 Head/Face: Normocephalic, atraumatic. cp 00:19 Constitutional: The patient appears in no acute distress, alert, awake, comfortable, non-toxic, well developed, well nourished. 00:19 Eyes: Periorbital structures: appear normal, Pupils: equal, round, and reactive to light and accomodation, Extraocular movements: intact throughout, Conjunctiva: subconjunctival hemorrhage(s), seen in the right eye, lateral aspect of conjunctiva, Corneas: are normal, Lids and lashes: appear normal, bilaterally. 00:19 Chest/axilla: Inspection: normal. 00:19 Cardiovascular: Rate: bradycardic. 00:19 Respiratory: the patient does not display signs of respiratory distress, Respirations: normal. 00:19 Skin: cellulitis, is not appreciated, no rash present. Vital Signs: 10/05 22:42 BP 122 / 71; Pulse 56; Resp 18; Temp 97.6; Pulse Ox 100% ; Weight 60.78 kg; Height 5 bb ft. 5 in. (165.10 cm); Pain 0/10; 10/06 00:32 BP 118 / 71; Pulse 57; Resp 16 S; Temp 97.7(O); Pulse Ox 100% on R/A; Pain 0/10; bb 10/05 22:42 Body Mass Index 22.30 (60.78 kg, 165.10 cm) bb MDM: 00:11 Patient medically screened. cp 00:21 Data reviewed: vital signs, nurses notes, and as a result, I will discharge patient. cp Counseling: I had a detailed discussion with the patient and/or guardian regarding: the historical points, exam findings, and any diagnostic results supporting the discharge/admit diagnosis, the need for outpatient follow up, an opthalmologist, to return to the emergency department if symptoms worsen or persist or if there are any questions or concerns that arise at home. ED course: Reassurance. Continue oral blood thinner as prescribed. Will discharge to home for continued monitoring. Administered Medications: No medications were administered Disposition: 00:35 Chart complete. cp 02:33 Co-signature as Attending Physician, Terry Burton MD. rn Disposition: 10/06/20 00:23 Discharged to Home. Impression: Conjunctival hemorrhage, right eye. - Condition is Stable. - Discharge Instructions: Subconjunctival Hemorrhage. - Medication Reconciliation Form, Thank You Letter, Antibiotic Education, Prescription Opioid Use form. - Follow up: Quynh Rascon MD; When: 2 - 3 days; Reason: Worsening of condition. Signatures: Shelly Snow RN Terry Palmer MD MD rn Page, Corey, PA PA cp Corrections: (The following items were deleted from the chart) 00:32 00:23 10/06/2020 00:23 Discharged to Home. Impression: Conjunctival hemorrhage, right bb eye. Condition is Stable. Forms are Medication Reconciliation Form, Thank You Letter, Antibiotic Education, Prescription Opioid Use. Follow up: Quynh Rascon; When: 2 - 3 days; Reason: Worsening of condition. cp
--- NOTE | 2020-10-06 00:23 | ER ---
Nurse's Notes [facility] Name: Erum Mckay Age: 70 yrs Sex: Female : 1950 Arrival Date: 10/05/2020 Time: 22:18 Bed 25 Private MD: Diagnosis: Conjunctival hemorrhage, right eye Presentation: 10/05 22:37 Chief complaint: Patient states: Noticed redness to right eye this morning. On blood bb thinners so worried about a bleed. Coronavirus screen: Client denies travel out of the [place] in the last 14 days. Ebola Screen: Patient negative for fever greater than or equal to 101.5 degrees Fahrenheit, and additional compatible Ebola Virus Disease symptoms Patient denies exposure to infectious person. Patient denies travel to an Ebola-affected area in the 21 days before illness onset. Initial Sepsis Screen: Does the patient meet any 2 criteria? No. Patient's initial sepsis screen is negative. Does the patient have a suspected source of infection? No. Patient's initial sepsis screen is negative. Risk Assessment: Do you want to hurt yourself or someone else? Patient reports no desire to harm self or others. Onset of symptoms was October 05, 2020. 22:37 Method Of Arrival: Ambulatory bb 22:37 Acuity: VIRGILIO 3 bb 22:41 Chief complaint: Patient states: I have also been tired and dizzy for a few months. bb Historical: - Allergies: 22:44 PENICILLINS; bb - Home Meds: 22:46 metformin Oral [Active]; amiodarone Oral [Active]; Eliquis 2.5 mg oral tab 1 tab 2 bb times per day [Active]; Spironolactone Oral [Active]; Metoprolol Tartrate Oral [Active]; Furosemide Oral [Active]; - PMHx: 22:44 Atrial Fib; CHF; Diabetes - IDDM; Hypertension; bb - PSHx: 22:44 None; bb - Immunization history:: Adult Immunizations up to date. - Social history:: Smoking status: Patient denies any tobacco usage or history of. Screenin/15 00:29 Abuse screen: Denies threats or abuse. Nutritional screening: No deficits noted. bb Tuberculosis screening: No symptoms or risk factors identified. Fall Risk None identified. Assessment: 00:29 General: Appears in no apparent distress. Behavior is calm, cooperative. Pain: Denies bb pain. Neuro: Level of Consciousness is awake, alert, obeys commands, Oriented to person, place, time, situation. Cardiovascular: No deficits noted. Respiratory: Respiratory effort is even, unlabored, Respiratory pattern is regular. GI: No signs and/or symptoms were reported involving the gastrointestinal system. EENT: subconjunctival hemorrhage to lateral aspect of right sclera. Musculoskeletal: Circulation, motion, and sensation intact. 00:31 Reassessment: Patient is alert, oriented x 3, equal unlabored respirations, skin bb warm/dry/pink. pt verbalized understanding of and agrees to plan of care discharge instructions given pt ambulated with steady gait to exit accompanied by family. Vital Signs: 10/05 22:42 BP 122 / 71; Pulse 56; Resp 18; Temp 97.6; Pulse Ox 100% ; Weight 60.78 kg; Height 5 bb ft. 5 in. (165.10 cm); Pain 0/10; 10/06 00:32 BP 118 / 71; Pulse 57; Resp 16 S; Temp 97.7(O); Pulse Ox 100% on R/A; Pain 0/10; bb 10/05 22:42 Body Mass Index 22.30 (60.78 kg, 165.10 cm) bb ED Course: 10/05 22:18 Patient arrived in ED. cl3 22:41 Triage completed. bb 22:44 Arm band placed on right wrist. bb 10/06 00:07 Bravo Donaldson PA is PHCP. cp 00:07 Terry Burton MD is Attending Physician. cp 00:22 Quynh Rascon MD is Referral Physician. cp 00:29 Patient has correct armband on for positive identification. Adult w/ patient. bb 00:29 No provider procedures requiring assistance completed. Patient did not have IV access bb during this emergency room visit. Administered Medications: No medications were administered Outcome: 00:23 Discharge ordered by . cp 00:31 Discharged to home ambulatory, with family. bb 00:31 Condition: stable 00:31 Discharge instructions given to patient, Instructed on discharge instructions, follow up and referral plans. Demonstrated understanding of instructions, follow-up care. 00:32 Patient left the ED. bb Signatures: Shelly Snow RN RN bb Bravo Donaldson PA PA cp Lewis, Charde cl3 Corrections: (The following items were deleted from the chart) 10/05 22:42 22:37 Chief complaint: Patient states: Noticed redness to right eye this morning. On bb blood thinners so worried about a bleed bb 22:42 22:37 Ebola Screen: Patient negative for fever greater than or equal to 101.5 degrees bb Fahrenheit, and additional compatible Ebola Virus Disease symptoms Patient denies exposure to infectious person. Patient denies travel to an Ebola-affected area in the 21 days before illness onset. bb
[2020-10-06 00:55] VITALS: O2SAT 100
[2020-10-06 00:56] VITALS: BP 118/71; TEMP 97.7
== END 2020-10-06 00:32 | disposition home or self-care (01) ==
LOC: ER 22:16
DX: H11.31 Conjunctival hemorrhage, right eye (principal); I10 Essential (primary) hypertension; E11.9 Type 2 diabetes mellitus without complications; I48.91 Unspecified atrial fibrillation; Z79.01 Long term (current) use of anticoagulants; Z88.0 Allergy status to penicillin
CPT/HCPCS: 99281

== ENCOUNTER 2021-03-17 09:37 | Inpatient (IN) | payer OTHER, SELFPAY ==
[2021-03-17 10:24] LABS: Absolute Lymphocytes (CBC) 1.9 K/uL (0.7-4.9); Basophils % 0.4 % (0-1.3); Hematocrit 36.1 % (36.0-45.0); MPV 7.7 fL (7.6-11.3); Protime INR 1.4; RBC Red Blood Cell Count 3.89 M/uL (3.86-4.86)
--- NOTE | 2021-03-17 10:48 | RAD REPORT ---
EXAM DESCRIPTION: CT - Head Brain Wo Cont - 03/17/2021 10:22 am CLINICAL HISTORY: Dizziness and weakness COMPARISON: None. TECHNIQUE: Computed axial tomography of the head was obtained. IV contrast was not requested. All CT scans are performed using dose optimization technique as appropriate and may include automated exposure control or mA/KV adjustment according to patient size. FINDINGS: An intracranial bleed is not seen . The ventricles are normal in caliber. No extra-axial fluid collection is noted. Fluid within the sinuses/ mastoids is not seen. IMPRESSION: No acute intracranial abnormality is seen. If patient's symptoms persist MRI of the bra in would be recommended.
[2021-03-17 10:51] LABS: ALT/SGPT 15 U/L (12-78); Albumin 3.9 g/dL (3.4-5.0); Alkaline Phosphatase 104 U/L (45-117); BUN Blood Urea Nitrogen 36 mg/dL (7-18); Bicarbonate 26 mmol/L (21-32); Bilirubin Direct 0.2 mg/dL (0-0.2); Bilirubin Total 0.5 mg/dL (0.2-1.0); Glucose Level 238 mg/dL (74-106); NT PRO-BNP 798 pg/mL (<125); Protein, Total 7.4 g/dL (6.4-8.2); Sodium Level 125 mmol/L (136-145); Troponin (Emerg Dept Use Only) < 0.02 ng/mL (0.0-0.045)
[2021-03-17 10:52] LABS: AST/SGOT 18 U/L (15-37); Magnesium 2.2 mg/dL (1.8-2.4); Potassium 4.8 mmol/L (3.5-5.1)
--- NOTE | 2021-03-17 10:57 | RAD REPORT ---
EXAM DESCRIPTION: Alejandro Single View03/17/2021 10:38 am CLINICAL HISTORY: Swelling COMPARISON: 2019 FINDINGS: The lungs appear clear of acute infiltrate. The heart is normal size IMPRESSION: No acute abnormalities displayed
--- NOTE | 2021-03-17 11:31 | ER ---
Nurse's Notes [facility] Name: Erum Mckay Age: 70 yrs Sex: Female : 1950 Arrival Date: 03/17/2021 Time: 09:42 Bed 13 Private MD: Roc Petersen Diagnosis: Dehydration Presentation: 03/17 10:15 Chief complaint: Patient states: dizziness, weakmess x 3 weeks, worsening symptoms in oh 3-4 days. pt feels she is dehydrated and may have a UTI, blood glucose 243 at home. Coronavirus screen: Vaccine status: Patient reports being unvaccinated. Ebola Screen: No symptoms or risks identified at this time. Initial Sepsis Screen: Does the patient meet any 2 criteria? No. Patient's initial sepsis screen is negative. Does the patient have a suspected source of infection? No. Patient's initial sepsis screen is negative. Risk Assessment: Do you want to hurt yourself or someone else? Patient reports no desire to harm self or others. Onset of symptoms is unknown. 10:15 Method Of Arrival: Ambulatory oh 10:15 Acuity: VIRGILIO 3 oh Triage Assessment: 10:20 General: Appears comfortable, Behavior is calm, cooperative, appropriate for age, oh Reports fatigue for dizziness and weakness x 3 weeks. Pain: Denies pain. EENT: No deficits noted. Neuro: Reports dizziness, weakness. Cardiovascular: Rhythm is atrial fibrillation. Respiratory: No deficits noted. GI: No deficits noted. : Reports urgency, decrease urine output. Derm: No deficits noted. Musculoskeletal: Reports weakness in body. Historical: - Allergies: 10:41 PENICILLINS; oh - Home Meds: 10:41 Amiodarone Oral [Active]; Eliquis 2.5 mg Oral tab 1 tab 2 times per day [Active]; oh Spironolactone Oral [Active]; Furosemide Oral [Active]; Metformin Oral [Active]; Metoprolol Tartrate Oral [Active]; - PMHx: 10:41 Atrial Fib; CHF; Diabetes - IDDM; Hypertension; oh - Immunization history:: Client reports having NOT received the Covid vaccine. Flu vaccine is up to date. - Social history:: Patient/guardian denies using. Screenin:24 Abuse screen: Denies threats or abuse. Nutritional screening: No deficits noted. oh Tuberculosis screening: No symptoms or risk factors identified. Fall Risk Gait- Weak (10 pts.). Assessment: 10:23 Neuro: Gait is unsteady, Reports dizziness, weakness. : Reports urgency, decrease oh urine output. 15:18 Reassessment: report given to rn Julissa, pt awaiting transport to [facility] [place]. oh Vital Signs: 10:15 BP 126 / 69; Pulse 51; Resp 16; Temp 97.4; Pulse Ox 97% on R/A; Weight 54.43 kg; Height oh 5 ft. 6 in. (167.64 cm); 10:24 BP 118 / 63; Pulse 50; Resp 16; Pulse Ox 97% on R/A; oh 11:07 BP 111 / 62 Supine; Pulse 52; Resp 19; Pulse Ox 100% ; oh 11:07 BP 104 / 59 Sitting; Pulse 53; Resp 19; Pulse Ox 100% ; oh 11:07 BP 86 / 53 Standing; Pulse 59; Resp 21; Pulse Ox 100% ; oh 14:53 BP 136 / 62; Pulse 58; Resp 15; Pulse Ox 100% on R/A; oh 10:15 Body Mass Index 19.37 (54.43 kg, 167.64 cm) oh ED Course: 09:42 Patient arrived in ED. mr 09:42 Roc Petersen MD is Private Physician. mr 09:43 Yakelin Merino FNP-C is [facility]. kb 09:43 Jaziel Liu MD is Attending Physician. kb 10:14 Harmeet Garza, RN is Primary Nurse. oh 10:20 Triage completed. oh 10:22 CT Head Brain wo Cont In Process Unspecified. EDMS 10:22 Arm band placed on right wrist. oh 10:24 Inserted saline lock: 20 gauge in left antecubital area, using aseptic technique. Blood oh collected. 10:38 XRAY Chest (1 view) In Process Unspecified. EDMS 10:54 Urine Microscopic Only Sent. oh 11:31 Ashlee Sneed MD is Hospitalizing Provider. kb Administered Medications: 11:36 Drug: NS 0.9% 1000 ml Route: IV; Rate: 1000 ml; Site: right antecubital; oh Outcome: 11:31 Decision to Hospitalize by Provider. kb 15:46 Patient left the ED. oh Signatures: Dispatcher [employer] EDMS Yakelin Merino FNP-C [employer] QUALITY PERFORMANCE ANALYST-Margo Batres mr Harmeet Garza, RN RN oh Corrections: (The following items were deleted from the chart) 12:01 11:44 CORONAVIRUS+ drawn and sent. oh EDMS
--- NOTE | 2021-03-17 11:31 | EDPHYS ---
Physician Documentation [facility] Name: Erum Mckay Age: 70 yrs Sex: Female : 1950 Arrival Date: 03/17/2021 Time: 09:42 Bed 13 Private MD: Roc Petersen ED Physician Jaziel Liu HPI: 03/17 10:16 This 70 yrs old Female presents to ER via Unassigned with complaints of kb Dizziness, High Blood Sugar. 10:16 The patient presents with dizziness, generalized weakness. Onset: The symptoms/episode kb began/occurred 3 week(s) ago. Context: occurred at home, just prior to the episode the patient experienced no apparent symptoms. Modifying factors: The symptoms are alleviated by nothing, the symptoms are aggravated by nothing. Associated signs and symptoms: The patient has no apparent associated signs or symptoms. Severity of symptoms: At their worst the symptoms were mild moderate in the emergency department the symptoms are unchanged. Patient's baseline: Neuro: alert and fully oriented, Motor: no deficits, Ambulation: walks without assistance, Speech: normal. The patient has experienced a previous episode. The patient has not recently seen a physician. Daughter reports pt has had dizziness/weakness for approx 3 weeks that got worse about 3-4 days ago. STates she has had these symptoms before and it was due to dehydration and UTI. . Historical: - Allergies: 10:41 PENICILLINS; oh - Home Meds: 10:41 Amiodarone Oral [Active]; Eliquis 2.5 mg Oral tab 1 tab 2 times per day [Active]; oh Spironolactone Oral [Active]; Furosemide Oral [Active]; Metformin Oral [Active]; Metoprolol Tartrate Oral [Active]; - PMHx: 10:41 Atrial Fib; CHF; Diabetes - IDDM; Hypertension; oh - Immunization history:: Client reports having NOT received the Covid vaccine. Flu vaccine is up to date. - Social history:: Patient/guardian denies using. ROS: 10:18 Constitutional: Negative for fever, chills, and weight loss. kb 10:18 Neuro: Positive for dizziness, weakness. 10:18 All other systems are negative. Exam: 10:16 Constitutional: This is a well developed, well nourished patient who is awake, alert, kb and in no acute distress. Head/Face: Normocephalic, atraumatic. Eyes: Pupils equal round and reactive to light, extra-ocular motions intact. Lids and lashes normal. Conjunctiva and sclera are non-icteric and not injected. Cornea within normal limits. Periorbital areas with no swelling, redness, or edema. ENT: Moist Mucous membranes Cardiovascular: Regular rate and rhythm with a normal S1 and S2. No gallops, murmurs, or rubs. No pulse deficits. Respiratory: Respirations even and unlabored. No increased work of breathing, no retractions or nasal flaring. Skin: Warm, dry with normal turgor. Normal color. MS/ Extremity: Pulses equal, no cyanosis. Neurovascular intact. Full, normal range of motion. Neuro: Awake and alert, GCS 15, oriented to person, place, time, and situation. Moves all extremities. Normal gait. Psych: Awake, alert, with orientation to person, place and time. Behavior, mood, and affect are within normal limits. 10:16 ECG was reviewed by the Attending Physician. Vital Signs: 10:15 BP 126 / 69; Pulse 51; Resp 16; Temp 97.4; Pulse Ox 97% on R/A; Weight 54.43 kg; Height oh 5 ft. 6 in. (167.64 cm); 10:24 BP 118 / 63; Pulse 50; Resp 16; Pulse Ox 97% on R/A; oh 11:07 BP 111 / 62 Supine; Pulse 52; Resp 19; Pulse Ox 100% ; oh 11:07 BP 104 / 59 Sitting; Pulse 53; Resp 19; Pulse Ox 100% ; oh 11:07 BP 86 / 53 Standing; Pulse 59; Resp 21; Pulse Ox 100% ; oh 14:53 BP 136 / 62; Pulse 58; Resp 15; Pulse Ox 100% on R/A; oh 10:15 Body Mass Index 19.37 (54.43 kg, 167.64 cm) oh MDM: 09:50 Patient medically screened. kb 10:16 Data reviewed: vital signs, nurses notes. Data interpreted: Pulse oximetry: is 100 %. kb 11:28 Counseling: I had a detailed discussion with the patient and/or guardian regarding: the kb historical points, exam findings, and any diagnostic results supporting the discharge/admit diagnosis, lab results, radiology results, the need for further work-up and treatment in the hospital. Physician consultation: Phillip Caballero was contacted at 11:29, regarding admission, to the telemetry unit. patient's condition, and will see patient in ED, shortly. 03/17 09:51 Order name: Basic Metabolic Panel; Complete Time: 10:52 kb 03/17 09:51 Order name: CBC with Diff; Complete Time: 10:33 kb 03/17 09:51 Order name: LFT's; Complete Time: 10:52 kb 03/17 09:51 Order name: Magnesium; Complete Time: 10:52 kb 03/17 09:51 Order name: NT PRO-BNP; Complete Time: 10:52 kb 03/17 09:51 Order name: PT-INR; Complete Time: 10:33 kb 03/17 09:51 Order name: CT Head Brain wo Cont; Complete Time: 10:52 kb 03/17 09:51 Order name: Troponin (emerg Dept Use Only); Complete Time: 10:52 kb 03/17 09:51 Order name: XRAY Chest (1 view); Complete Time: 11:05 kb 03/17 09:51 Order name: Urine Microscopic Only; Complete Time: 11:49 kb 03/17 11:49 Order name: Urine Culture EDWY 03/17 12:57 Order name: SARS-COV-2 RT PCR EDWY 03/17 13:07 Order name: Glucose, Ancillary Testing EDW[facility] 03/17 09:51 Order name: EKG; Complete Time: 09:51 kb 03/17 09:51 Order name: Cardiac monitoring; Complete Time: 10:14 kb 03/17 09:51 Order name: EKG - Nurse/Tech; Complete Time: 10:14 kb 03/17 09:51 Order name: IV Saline Lock; Complete Time: 10:14 kb 03/17 09:51 Order name: Labs collected and sent; Complete Time: 10:14 kb 03/17 09:51 Order name: O2 Per Protocol; Complete Time: 10:14 kb 03/17 09:51 Order name: O2 Sat Monitoring; Complete Time: 10:14 kb 03/17 09:51 Order name: Orthostatics; Complete Time: 11:10 kb 03/17 09:51 Order name: Urine Dipstick-Ancillary (obtain specimen); Complete Time: 10:54 kb EC:16 Rate is 50 beats/min. Rhythm is regular. QRS [place] is Normal. MN interval is normal at kb 194 msec. QRS interval is normal at 86 msec. QT interval is normal at 510 msec. Administered Medications: 11:36 Drug: NS 0.9% 1000 ml Route: IV; Rate: 1000 ml; Site: right antecubital; oh Disposition Summary: 03/17/21 11:31 Hospitalization Ordered Hospitalization Status: Observation kb Provider: Ashlee Sneed Location: Telemetry/MedSurg (observation) kb Condition: Stable kb Problem: new kb Symptoms: are unchanged kb Bed/Room Type: Standard Room Assignment: 221(03/17/21 14:33) mt Diagnosis - Dehydration kb Forms: - Medication Reconciliation Form kb - SBAR form kb Addendum: 03/18/2021 16:56 Co-signature as Attending Physician, Jaziel Liu MD I agree with the assessment and k dr plan of care. Signatures: Dispatcher [employer] EDWY Yakelin Merino, MERCHANDISER SEASONAL-C MER[employer] SE[employer]ON[employer]-Ckb Jaziel Liu MD MD [facility] [place] Phillip Caballero [facility] Harmeet Garza, ARTI RN oh Corrections: (The following items were deleted from the chart) 03/17 12:01 11:32 CORONAVIRUS+MR.LAB.BRZ ordered. [facility] ED[facility] 14:33 11:31 kb wv
[2021-03-17 11:48] LABS: Urine Bacteria 20-50 /HPF (<20); Urine RBC <5 /HPF (NONE SEEN)
[2021-03-17] MEDS ORDERED: NA CHLORIDE 0.9% 1,000 ML ONE (11:59)
--- NOTE | 2021-03-17 13:38 | P.HP ---
Certification for Inpatient Patient admitted to: Observation With expected LOS: <2 Midnights Patient will require the following post-hospital care: None Practitioner: I am a practitioner with admitting privileges, knowledge of patient current condition, hospital course, and medical plan of care. Services: Services provided to patient in accordance with Admission requirements found in Title 42 Section 412.3 of the Code of Federal Regulations <Phillip Caballero - Last Filed: 03/17/21 13:58> Patient admitted to: Observation With expected LOS: <2 Midnights <Ashlee Sneed - Last Filed: 03/18/21 00:17> Patient History Date of Service: 03/17/21 Primary Care Provider: Dr. Petersen Reason for admission: Hyponatremia, orthostatic History of Present Illness: Chest Single View03/17/2021 10:38 am CLINICAL HISTORY: Swelling COMPARISON: 2019 FINDINGS: The lungs appear clear of acute infiltrate. The heart is normal size IMPRESSION: No acute abnormalities displayed CT - Head Brain Wo Cont - 03/17/2021 10:22 am CLINICAL HISTORY: Dizziness and weakness COMPARISON: None. FINDINGS: An intracranial bleed is not seen. The ventricles are normal in caliber. No extra-axial fluid collection is noted. Fluid within the sinuses/ mastoids is not seen. IMPRESSION: No acute intracranial abnormality is seen. If patient's symptoms persist MRI of the brain would be recommended. The patient is a 70-year-old white female. She suffers from controlled congestive heart failure and controlled atrial fibrillation. She believes that her problems are a result of the medication she takes for her heart condition. For the last year she has had some difficulty with fairly frequent falls and near syncopal episodes. She has been dizzy for the last 2 to 3 weeks, and she fell twice on Saturday. She states that she feels very weak and tired at this particular moment. As a side note she also mentions that she has had short-term memory loss over approximately the last year and a half. Her current home situation is stressful. She came to the hospital at the insistence of her sister who has been monitoring her condition for some time. Because of the social situation of the home she has been fasting for the past 3 days and that may have something to do with her current issue. The fast was not a total fast. She has no injury from the falls on Saturday. On arrival she was noted to be orthostatic. Her chemistries were remarkable for a sodium of 125, a blood sugar of 238, a BUN of 36, and a creatinine 1.45. Her troponin was negative. It is noted that her GFR has declined from 46-36 in the last 12 calendar months and her creatinine is climbed from roughly 1.35-1.45. She had an echocardiogram a bit over a month ago and her ejection fraction was 55-60. On arrival her blood pressure was 86/53 at the time of her exam it was 136/62. Home medications list reviewed: Yes - Past Medical/Surgical History Diabetic: Yes -: Hypertension -: Chronic atrial fibrillation -: Diabetes mellitus type 2 -: CHF (diastolic) -: Short term memory loss -: Ongoing dizziness Past Surgical History: Patient denies surgical history Psychosocial/ Personal History: Pt has never worked outside the home. She does live at home. Currently she has a child and his spouse/girlfriend staying with her but that situation is difficult. - Family History Sister -: Diabetes Mother -: Heart disease, Hypertension Brother -: Heart disease, Hypertension - Social History Smoking Status: Never smoker Alcohol use: No CD- Drugs: No Caffeine use: No Place of Residence: Home <Phillip Caballero - Last Filed: 03/17/21 13:58> Date of Service: 03/17/21 <Ashlee Sneed - Last Filed: 03/18/21 00:17> Allergies Penicillins Allergy (Verified 01/27/20 23:39) Anaphylaxis Home Medications: Amiodarone HCl [Cordarone*] 200 mg PO SEECOM 01/28/20 Aspirin Chewable [Aspirin Chewable*] 81 mg PO DAILY 01/28/20 Apixaban [Eliquis *] 1 tab PO Q12H 03/17/21 Furosemide 1 tab PO Q12H 03/17/21 Metoprolol Tartrate 1 tab PO Q12H 03/17/21 Spironolactone 1 tab PO Q12H 03/17/21 Review of Systems 10-point ROS is otherwise unremarkable (All other systems reviewed and negative except as documented in the chart.) General: Weakness, Malaise Eyes: Unremarkable ENT: Unremarkable Respiratory: Shortness of Breath (intermittent), SOB with Excertion Cardiovascular: Light Headedness Gastrointestinal: Diarrhea (One episode of loose stool today) <Phillip Caballero - Last Filed: 03/17/21 13:58> Physical Examination - Physical Exam General: Alert, In no apparent distress, Oriented x3, Cooperative HEENT: Atraumatic, Normocephalic, PERRLA Neck: Supple, 2+ carotid pulse no bruit Respiratory: Clear to auscultation bilaterally, Normal air movement Cardiovascular: No edema, Normal pulses, Normal S1 S2 Capillary refill: Brisk Gastrointestinal: Normal bowel sounds, Soft and benign, No tenderness Musculoskeletal: No clubbing, No swelling, No contractures, No erythema Integumentary: No rashes, No breakdown Neurological: Normal speech, Normal strength at 5/5 x4 extr, Normal affect External genitalia: Deferred Rectal: Deferred - Studies Laboratory Data (last 24 hrs) 03/17/21 10:11: PT 16.1 H, INR 1.40 03/17/21 10:11: WBC 9.20, Hgb 13.0, Hct 36.1, Plt Count 272 03/17/21 10:11: Sodium 125 L, Potassium 4.8, BUN 36 H, Creatinine 1.45 H, Glucose 238 H, Magnesium 2.2, Total Bilirubin 0.5, AST 18, ALT 15, Alkaline Phosphatase 104 <Phillip Caballero - Last Filed: 03/17/21 13:58> - Studies Laboratory Data (last 24 hrs) 03/17/21 10:11: PT 16.1 H, INR 1.40 03/17/21 10:11: WBC 9.20, Hgb 13.0, Hct 36.1, Plt Count 272 03/17/21 10:11: Sodium 125 L, Potassium 4.8, BUN 36 H, Creatinine 1.45 H, Glucose 238 H, Magnesium 2.2, Total Bilirubin 0.5, AST 18, ALT 15, Alkaline Ph osphatase 104 <Ashlee Sneed - Last Filed: 03/18/21 00:17> Assessment and Plan - Plan Assessment: Dizziness Fatigue Diabetes Renal Failure HTN CHF (controlled) Atrial Fibrillation (controlled) Plan: Dizziness: Neurology consult. MRI brain without contrast. Doppler of bilateral carotid arteries. Fatigue: Replenish sodium, NS 125hr and check sodium at 18:00. Fall precautions Diabetes: Sliding scale insulin (pt states she seldom needs to take anything for her diabetes but in the last week has had to. Renal Failure: Nephrology consult. Urine sodium, serum and urine osmolality, Renal ultrasound HTN: Supply patients usual blood pressure medications. CHF (controlled): Continue usual mediations. Atrial Fibrillation (controlled):Continue usual meds DVT PPx: Pt is on Eliquis 2.5mg bid CODE STATUS: Full Code Discharge Plan: Home Plan to discharge in: 24 Hours - Advance Directives Does patient have a Living Will: No Does patient have a Durable POA for Healthcare: No - Code Status/Comfort Care Code Status Assessed: Yes Code Status: Full Code Critical Care: No Time Spent Managing Pts Care (In Minutes): 70 <Phillip Caballero - Last Filed: 03/17/21 13:58> Date of Service: 03/17/21 Subjective: Agree with plan of care as mentioned above. Patient has had a lot of stress recently. Patient's son is staying with her and she is having a hard time with him. Her sodium level was very low. This will be corrected during the evening. Check thyroid and cortisol levels as well. Physical Examination: Vitals: Afebrile vital signs are stable Physical exam: Cardiovascular: Within normal limits. Lungs: Within normal limits Abdomen: Within normal limits Neuro: Awake, alert, oriented to person place and time; no abnormalities; no ataxia gait; no dysmetria Assessment: 1. Tremors 2. Hyponatremia 3. Status post fall 4. History of hypertension 5. History of CHF 6. History of atrial fibrillation Plan: 1. Continue with IV fluids 2. MRI and carotid Doppler pending. Echocardiogram done recently with no abnormality 3. Continue cardiac meds 4. Check orthostatics 5. Recheck sodium every 8-12 hr 6. GI and DVT prophylaxis <Ashlee Sneed - Last Filed: 03/18/21 00:17>
[2021-03-17 14:48] VITALS: BMI 23.3
[2021-03-17] MEDS ORDERED: NA CHLORIDE 0.9% 1,000 ML IV SCH (15:51)
[2021-03-17] MEDS ORDERED: ACETAMINOPHEN 500 MG TAB PO PRN (15:51)
[2021-03-17] MEDS: METOPROLOL TAR 25 MG TAB PO SCH (16:28)
[2021-03-17] MEDS: FUROSEMIDE 40 MG TABLET PO SCH (16:28)
[2021-03-17] MEDS: INSULIN -REGULAR HUMAN 50 UNIT/0.5 ML ML SQ SCH ×5 (16:30→21:03)
[2021-03-17] MEDS ORDERED: PNEUMOCOCCAL VACCINE 0.5 ML IMVAC ONE (17:00)
[2021-03-17 17:24] LABS: Thyroid Stimulating Hormone 0.314 uIU/mL (0.360-3.740); Troponin I < 0.02 ng/mL (0.0-0.045)
--- NOTE | 2021-03-17 18:34 | RAD REPORT ---
EXAM DESCRIPTION: US - Renal Ultrasound-Complete - 03/17/2021 6:16 pm CLINICAL HISTORY: Decreasing GFR, increasing CR COMPARISON: Abdomen Pelvis Wo Contrast dated 01/27/2020 FINDINGS: Both kidneys are normal in size, shape and echotexture. The right kidney measures 9.7 cm. 1.2 cm anechoic lesion in the right kidney with increased through t ransmission consistent with a cyst. The left kidney measures 9.8 cm. No hydronephrosis, focal mass or perinephric fluid. The urinary bladder is incompletely distended without gross abnormality seen. Incidentally noted anechoic lesion in the spleen measuring 2.8 cm is noted. IMPRESSION: No evidence of hydronephrosis. Splenic and right renal cysts.
--- NOTE | 2021-03-17 18:43 | RAD REPORT ---
EXAM DESCRIPTION: US - CP - 03/17/2021 6:16 pm CLINICAL HISTORY: Dizziness, falls COMPARISON: Brain Wo Cont dated 03/17/2021 TECHNIQUE: Real-time sonographic evaluation of both carotid systems was performed. Doppler interroga tion was performed with waveform tracing bilaterally. FINDINGS: Normal high resistance waveforms are noted in both external carotid arteries. The common c arotid arteries and internal carotid arteries show normal low resistance waveforms. Scattered mild hard plaque at the carotid bulbs and right common carotid artery. Peak systolic and en d diastolic velocity values and the ICA/CCA ratios are in the non-hemodynamically significant range. Antegrade flow seen in both vertebral arteries. IMPRESSION: Mild atherosclerotic changes. No evidence of a hemodynamically significant stenosis.
[2021-03-17] MEDS: SPIRONOLACTONE 25 MG TABLET PO SCH (19:09)
[2021-03-17] MEDS: APIXABAN 2.5 MG TABLET PO SCH (19:10)
--- NOTE | 2021-03-17 19:14 | RAD REPORT ---
EXAM DESCRIPTION: MRI - Brain Wo Cont - 03/17/2021 6:34 pm CLINICAL HISTORY: Dizziness, falls, weakness COMPARISON: Head Brain Wo Cont dated 03/17/2021 TECHNIQUE: Sagittal T1-weighted images were obtained along with PD/heavily T2-weighted and T2-FLAIR images. Axial DWI and ADC mapping sequences were also obtained along with coronal heavily T2-weighted images were obtained. FINDINGS: No intracranial hemorrhage, mass or acute infarction. There is no edema or shift of midlin e structures. No extra-axial fluid collections. Chronic small vessel ischemic changes. Signal voids a re seen as a normal finding in the major intracranial vessels. Small remote right frontal lobe subcor tical infarct. Mastoid air cells and paranasal sinuses are clear. IMPRESSION: No acute intracranial abnormality. Specifically, no evidence of acute infarct.
[2021-03-17] MEDS ORDERED: DESMOPRESSIN 4 MCG/ML AMP IV STA (20:02)
[2021-03-17 20:56] LABS: Urine Appearance CLOUDY (Clear); Urine Bilirubin NEGATIVE (Negative); Urine Blood NEGATIVE (Negative); Urine Color YELLOW (Yellow); Urine Glucose NEGATIVE (Negative); Urine Protein NEGATIVE (Negative); Urine Specific Gravity <=1.005 (1.005-1.030); Urine pH 6.5 (5.0-7.0)
[2021-03-17 20:58] LABS: Urine Microscopic Reflex ORDER UMIC
[2021-03-17 21:22] LABS: Urine Bacteria 20-50 /HPF (<20); Urine Mucus 1+ /HPF (NONE SEEN)
--- NOTE | 2021-03-18 01:58 | CON ---
Reason For Consultation: Consulted due to syncope. History Of Present Illness: Ms. Mckay is a 70-year-old patient with mild CHF, atrial fibrillation, which is controlled, diabetes mellitus, who has multiple hospital admissions with syncope and hypote nsion with orthostatic changes being positive. She comes in today with similar symptoms and has had dizziness on standing with multiple falls over about 2 weeks. She fell twice on last Saturday. She is feeling weak at times when getting up. She had more stressful situation at her home and this has contributed to several of these episodes. Review of her chart from December 2019 showed in January and , she had admissions with blood pressure down to 92/60 and pulse 58, and she was symptomatic at at time and she had an even lower blood pressure of 76/49, pulse of 66 and was orthostatic. This adm ission, she had positive orthostatic changes with the drop of blood pressure down to 86/53 and pulse of 59 when orthostatic testing was done. She was seen by an outside fancy packer and an echocardiogr am done earlier this month actually showed the ejection fraction is reportedly 55 to 60%. She has patterson d MRI of the brain and head CT scan, which showed no evidence of an acute ischemic or hemorrhagic fin ding. Carotid artery studies show no hemodynamically significant stenosis. Renal ultrasound showed no significant abnormalities. Her blood work showed a normal complete blood count with differential and basic metabolic panel is consistent with dehydration. Her creatinine elevated to 1.45. Glucose was elevated to 181. Her thyroid-stimulating hormone level was low at 0.314 and elevated free T4 up to 1.48 consistent with hyperthyroidism. Liver function studies unremarkable. Urinalysis showed 20 to 50 bacteria, 3+ esterase, negative nitrite and cultures are pending. Past Medical History: Actually some mildly progressive memory loss aside from mentioned above. Medications: Cordarone 200 mg daily, Eliquis 5 mg twice daily, Lipitor 10 mg daily, Promethazine 25 mg daily, aspirin 81 mg daily. Allergies: PENICILLIN. Past Surgical History: None. Family History: Diabetes in sister. Heart disease and hypertension in mother and brother with heart disease and hypertension. Social History: She has a partner who is a female who was in the room with her, and she does not smo ke cigarettes or drink alcohol. Review of Systems: As noted above, she has episodes of orthostatic dizziness of lightheadedness that resolved with sitti ng or lying down. She had mild shortness of breath on exertion and diffuse weakness when doing signi ficant exertion, especially with low blood pressures. Otherwise, negative 10 point systems review. Physical Examination: Vital Signs: Blood pressure 118/62, pulse of 60, respiratory rate 15, temperature 97.7, oxygen satur ation 100% on room air. Note her low blood pressure today was on the later in the morning 86/53 with a pulse of 59. General: Ms. Mckay is resting in bed. She is in no distress. HEENT: She is normocephalic, atraumatic. Sclerae anicteric. Oropharynx is moist and pink. Neck: Supple. Chest: Clear. Heart: Regular. Extremities: Show no significant edema. No clubbing or cyanosis. Neurological: She is alert and oriented to situation, place, and person. She follows commands appro priately. She has no cranial nerve, motor, coordination, or sensory deficits. She will be ambulated with physical therapy. Assessment: Ms. Mckay is a 70-year-old patient with dehydration, mildly dehydrated and likely over medicated on antihypertensive medication. In addition to medications listed above, she has been on d iuretic, furosemide 40 mg twice daily and spironolactone 25 mg twice daily along with Lopressor 25 mg twice daily and the amiodarone for rate control 200 mg daily. Plan: Her blood pressure regimen should be revised. She should hold blood pressure medications if s ystolic blood pressure is less than 120. She does admit to drinking about 80 ounces of water daily, and it is likely the overuse of diuretics may be contributing to some of her symptoms. She had COVID infection in 2019, and at this visit that is negative and not a likely contributing factor to the ac mcgrath presentation, however, the possibility of COVID encephalopathy should be raised as the patient do es have some subjective complaints of memory loss. She may be discharged once she has completed the observation and her blood pressures are being in a more normal range and she has no orthostatic sympt oms. LB/MODL Voice ID: [id number] Report ID: [id number]
[2021-03-18] MEDS: METOPROLOL TAR 25 MG TAB PO SCH ×2 (04:47→17:24)
[2021-03-18 06:03] LABS: Absolute Lymphocytes (CBC) 2.9 K/uL (0.7-4.9); Basophils % 0.5 % (0-1.3); Hematocrit 34.6 % (36.0-45.0); Lymphocytes % 34.7 % (15.3-44.8); MPV 7.8 fL (7.6-11.3)
[2021-03-18 06:21] LABS: Albumin 3.7 g/dL (3.4-5.0); Bilirubin Total 0.5 mg/dL (0.2-1.0); Magnesium 2.3 mg/dL (1.8-2.4); Phosphorus 4.1 mg/dL (2.5-4.9); Potassium 3.9 mmol/L (3.5-5.1); Protein, Total 6.9 g/dL (6.4-8.2)
[2021-03-18] MEDS: INSULIN -REGULAR HUMAN 50 UNIT/0.5 ML ML SQ SCH ×4 (07:30→20:49)
[2021-03-18] MEDS: APIXABAN 2.5 MG TABLET PO SCH ×2 (08:14→19:59)
[2021-03-18] MEDS: AMIODARONE HCL 200 MG TAB PO SCH (08:14)
[2021-03-18] MEDS: SPIRONOLACTONE 25 MG TABLET PO SCH (08:14)
[2021-03-18] MEDS: FUROSEMIDE 40 MG TABLET PO SCH (08:15)
[2021-03-18] MEDS ORDERED: POTASSIUM CL SA 10 MEQ TAB PO ONE (09:00)
--- NOTE | 2021-03-18 11:58 | CON ---
Date of Consultation: 03/18/2021 Reason For Consultation: Elevated BUN and creatinine, fluid management. History Of Present Illness: This is a pleasant 70-year-old female with significant past medical history of congestive heart failure questionable, atrial fibrillation, hypertension, diabetes, the patient came to the hospital complaining from dizziness for the last couple of days with nausea without any vomiting. Upon arrival to the hospital, the patient found to have elevation in BUN and creatinine, creatinine 1.4. For that reason, we have been consulted. The patient's baseline creatinine is 1.3. The patient denied taking any nonsteroid. Past Medical History: Includes; 1. Hypertension. 2. Hyperlipidemia. 3. Diabetes. 4. Atrial fibrillation, questionable congestive heart failure. 5. Diabetes with neuropathy. Past Surgical History: Negative. Family History: Positive for diabetes, CAD. Social History: Denied smoking, denied drinking, denied drugs abuse. Allergies: TO PENICILLIN. Medications: Include amiodarone, aspirin, Eliquis, Lasix, spironolactone. Review of Systems: Head and Neck: Has lightheaded. GI: Nausea without any vomiting. : No polyuria. No dysuria. No hematuria. Screw Supervisor: No vaginal discharge. Respiratory: Has shortness of breath with exertion. Cardiovascular: Lightheaded. Endocrine: No polydipsia. Skin: No rash. Neuro: Lightheaded. Musculoskeletal: Generalized fatigue. Physical Examination: Vital Signs: When I saw the patient; blood pressure 101/59, pulse of 58, afebrile. Earlier blood pressure down to the 80. Chest: Clear to auscultation. Heart: S1, S2. Regular. Abdomen: Soft, nontender. Extremity: No edema. Neuro: Alert. No focality. Laboratory Data: WBC 8.4, H and H 12.4/34.6. Sodium 132, potassium 3.9, bicarb 27, BUN 33, creatinine 1.2, GFR of 41, calcium 9.2, phosphorus 4.1. Albumin 3.7. Renal ultrasound; small size kidney, 9.7/9.8. No hydronephrosis. Reviewing the record for the patient, baseline creatinine back in January 2021, 1.1 with GFR of 46. Chest x-ray, mild congestion. Current Medications: The patient on include Eliquis 2.5 b.i.d., amiodarone, spironolactone 25 b.i.d., metoprolol, Lasix 40 b.i.d., KCl. Assessment And Plan: 1. Acute kidney injury on chronic kidney disease secondary to prerenal, over diuresis, looked to me normal volume currently. I am going to go ahead and backup on the spironolactone for the time being and we will decrease the Lasix to daily and we will monitor the patient closely. We will send for protein creatinine and PTH and we will follow up the patient. 2. Hyponatremia secondary to dilutional. We will decrease Lasix, discontinue spironolactone. 3. Hypertension with the presence of acute kidney injury. Decrease Lasix, discontinue spironolactone. 4. Urinary tract infection. Complicated urinary tract infection has been ruled out. Culture still pending. We will avoid Levaquin given the presence of her amiodarone. We will place the patient on ceftriaxone and we will follow up culture. 5. Congestive heart failure. Currently, the patient on the normal volume as above. Hold spironolactone, decrease Lasix. Time spent examining the patient [id number] placing order discussing with the patient reviewing data discussing the case with all of our subspecialty including hospitalist 55 minutes ARPAN Voice ID: [id number] Report ID: [id number] ADRIANO
--- NOTE | 2021-03-18 17:22 | P.PN ---
Subjective Date of Service: 03/18/21 Primary Care Provider: Dr. Petersen Chief Complaint: Hyponatremia, orthostatic Subjective: Improving Review of Systems 10-point ROS is otherwise unremarkable Physical Examination - Vital Signs Temperature: 98.2 F Blood Pressure: 99/61 Pulse: 55 Respirations: 18 Pulse Ox (%): 100 - Physical Exam General: Alert, In no apparent distress HEENT: Atraumatic, PERRLA, EOMI Neck: Supple, JVD not distended Respiratory: Clear to auscultation bilaterally, Normal air movement Cardiovascular: Regular rate/rhythm, Normal S1 S2 Gastrointestinal: Normal bowel sounds, No tenderness Musculoskeletal: No tenderness Integumentary: No rashes Neurological: Normal speech, Normal tone, Normal affect Lymphatics: No axilla or inguinal lymphadenopathy Assessment & Plan - Problems (Diagnosis) (1) Hyponatremia Current Visit: Yes Status: Acute Plan: resolving. Her diurectic(lasix and spirnolactone will be reduced to q day from bid) (2) UTI (urinary tract infection) Current Visit: Yes Status: Acute Plan: She is improving on ceftriaxone. will wait for cultures tomorrow to send her home on the right antibiotics. Qualifiers: Urinary tract infection type: acute cystitis Hematuria presence: without hematuria Qualified Code(s): N30.00 - Acute cystitis without hematuria (3) Acute renal failure Current Visit: No Status: Acute Plan: improving back to baseline. Qualifiers: Acute renal failure type: with acute renal cortical necrosis Qualified Code(s): N17.1 - Acute kidney failure with acute cortical necrosis (4) Chronic atrial fibrillation Current Visit: No Status: Chronic Plan: stable Discharge Plan: Home Plan to discharge in: 24 Hours - Code Status/Comfort Care Code Status Assessed: No Code Status: Full Code Physician Review: Patient Assessed, Agree with Above Assessment and Plan Critical Care: No Time Spent Managing Pts Care (In Minutes): 25
[2021-03-18] MEDS: CEFTRIAXONE 1 GM/NS 50 ML 1 GM/50 ML BAG IV SCH (20:00)
[2021-03-18] MEDS ORDERED: NA CHLORIDE 0.9% 100 ML ONE (20:18)
[2021-03-18] MEDS ORDERED: CEFTRIAXONE 1000 MG/VIAL ONE (20:18)
[2021-03-19] MEDS: METOPROLOL TAR 25 MG TAB PO SCH ×2 (04:15→17:39)
[2021-03-19 05:48] LABS: Absolute Lymphocytes (CBC) 3.2 K/uL (0.7-4.9); Basophils % 0.6 % (0-1.3); Hematocrit 33.7 % (36.0-45.0); Lymphocytes % 38.6 % (15.3-44.8); MPV 7.5 fL (7.6-11.3); RBC Red Blood Cell Count 3.58 M/uL (3.86-4.86)
[2021-03-19 06:12] LABS: Albumin 3.4 g/dL (3.4-5.0); Bilirubin Total 0.4 mg/dL (0.2-1.0); Phosphorus 3.5 mg/dL (2.5-4.9); Potassium 4.4 mmol/L (3.5-5.1); Protein, Total 6.6 g/dL (6.4-8.2); Thyroid Stimulating Hormone 0.327 uIU/mL (0.360-3.740)
[2021-03-19] MEDS: INSULIN -REGULAR HUMAN 50 UNIT/0.5 ML ML SQ SCH ×4 (07:30→21:00)
[2021-03-19] MEDS: AMIODARONE HCL 200 MG TAB PO SCH (08:39)
[2021-03-19] MEDS: CEFTRIAXONE 1 GM/NS 50 ML 1 GM/50 ML BAG IV SCH ×2 (08:39→21:37)
[2021-03-19] MEDS: FUROSEMIDE 40 MG TABLET PO SCH (08:40)
[2021-03-19] MEDS: APIXABAN 2.5 MG TABLET PO SCH ×2 (08:40→21:00)
--- NOTE | 2021-03-19 11:49 | PN ---
Date of Progress Note: 03/19/2021 Subjective: The patient was admitted with acute kidney injury, hyponatremia. Upon admission; creati nine around 1.4. The patient's Lasix and spironolactone were held. Kidney function plateaued. Sodi um had trending up. Physical Examination: Vital Signs: Blood pressure 108/61, pulse of 50, afebrile. The patient had a voiding. Chest: Clear to auscultation. Heart: S1, S2. Regular. Systolic murmur. Abdomen: Soft, nontender. Extremities: No edema. Neurologic: Alert. No focal. Laboratory Data: Sodium 130, potassium 4.4, bicarb 27, BUN 32, creatinine 1.4, GFR of 36, calcium 8. 9, phosphorus 3.5, PTH of 90. TSH 0.3. Urinalysis; specific gravity of 1.005, wbc more than 50. Ur ine electrolytes; sodium of 75. PC ratio is still pending. Current Medications: The patient on include; 1.Ceftriaxone. 2.Eliquis. 3.Amiodarone. 4.Tylenol. 5.Lasix 40 daily. 6.KCl. Assessment And Plan: 1.Acute kidney injury secondary to prerenal on chronic kidney disease, looked to me hovering around her baseline 1.4 to 1.6. Normal volume currently. I am going to continue current Lasix dose. 2.Hyponatremia secondary to dilutional. Continue current Lasix dose. Keep holding spironolactone. 3.Diabetes as by primary. 4.Urinary tract infection. Culture is still pending. Continue ceftriaxone. BOBO/YI Voice ID: [id number] Report ID: [id number]
--- NOTE | 2021-03-19 15:44 | P.PN ---
Subjective Date of Service: 03/19/21 Primary Care Provider: Dr. Petersen Chief Complaint: Hyponatremia, orthostatic Subjective: No new changes Review of Systems 10-point ROS is otherwise unremarkable Physical Examination - Vital Signs Temperature: 97.9 F Blood Pressure: 108/55 Pulse: 54 Respirations: 16 Pulse Ox (%): 94 - Physical Exam General: Alert, In no apparent distress HEENT: Atraumatic, PERRLA, EOMI Neck: Supple, JVD not distended Respiratory: Clear to auscultation bilaterally, Normal air movement Cardiovascular: Regular rate/rhythm, Normal S1 S2 Gastrointestinal: Normal bowel sounds, No tenderness Musculoskeletal: No tenderness Integumentary: No rashes Neurological: Normal speech, Normal tone, Normal affect Lymphatics: No axilla or inguinal lymphadenopathy - Studies Microbiology Data (last 24 hrs): 03/17/21 10:45 Clean Catch Urine [place] Count - Final <10,000 CFU/ML. 03/17/21 10:45 Clean Catch Urine - Final MIXED ZAFAR. Assessment & Plan - Problems (Diagnosis) (1) Hyponatremia Current Visit: Yes Status: Acute Plan: resolving. Her diurectic(lasix and spirnolactone will be reduced to q day from bid) (2) UTI (urinary tract infection) Current Visit: Yes Status: Acute Plan: She is improving on ceftriaxone. will wait for cultures tomorrow to send her home on the right antibiotics. Qualifiers: Urinary tract infection type: acute cystitis Hematuria presence: without hematuria Qualified Code(s): N30.00 - Acute cystitis without hematuria (3) Acute renal failure Current Visit: No Status: Acute Plan: improving back to baseline. 03/19 slight worsening. The patient is still at her baseline. Would keep her to make sure there is no futher increase. Qualifiers: Acute renal failure type: with acute renal cortical necrosis Qualified Code(s): N17.1 - Acute kidney failure with acute cortical necrosis (4) Chronic atrial fibrillation Current Visit: No Status: Chronic Plan: stable Discharge Plan: Home Plan to discharge in: 24 Hours - Code Status/Comfort Care Code Status Assessed: No Physician Review: Patient Assessed, Agree with Above Assessment and Plan Critical Care: No Time Spent Managing Pts Care (In Minutes): 20
[2021-03-19] MEDS: ONDANSETRON 4 MG/2 ML VIAL IV PRN (21:38)
[2021-03-20 04:35] LABS: Absolute Lymphocytes (CBC) 3.8 K/uL (0.7-4.9); Basophils % 0.6 % (0-1.3); Hematocrit 31.4 % (36.0-45.0); Lymphocytes % 45.2 % (15.3-44.8); MPV 7.4 fL (7.6-11.3); RBC Red Blood Cell Count 3.41 M/uL (3.86-4.86)
[2021-03-20 05:05] LABS: Albumin 3.3 g/dL (3.4-5.0); Bilirubin Total 0.4 mg/dL (0.2-1.0); Phosphorus 3.4 mg/dL (2.5-4.9); Potassium 4.4 mmol/L (3.5-5.1); Protein, Total 6.1 g/dL (6.4-8.2)
[2021-03-20 05:35] LABS: Blood Morphology Comment NOT SEEN (NOT SEEN); Platelet Estimate ADEQ
[2021-03-20] MEDS: METOPROLOL TAR 25 MG TAB PO SCH ×2 (06:00→16:00)
--- NOTE | 2021-03-20 06:14 | P.PN ---
Subjective Date of Service: 03/20/21 Primary Care Provider: Dr. Petersen Chief Complaint: Hyponatremia, orthostatic Subjective: Improving, Doing well Physical Examination - Vital Signs Temperature: 97.9 F Blood Pressure: 98/56 Pulse: 59 Respirations: 18 Pulse Ox (%): 98 - Studies Microbiology Data (last 24 hrs): 03/17/21 10:45 Clean Catch Urine [place] Count - Final <10,000 CFU/ML. 03/17/21 10:45 Clean Catch Urine - Final MIXED ZAFAR. Assessment & Plan Discharge Plan: Home Plan to discharge in: 48 Hours Physician Review Additional Text: COVID: negative CT Head: COMPARISON: None. TECHNIQUE: Computed axial tomography of the head was obtained. IV contrast was not requested. All CT scans are performed using dose optimization technique as appropriate and may include automated exposure control or mA/KV adjustment according to patient size. FINDINGS: An intracranial bleed is not seen . The ventricles are normal in caliber. No extra-axial fluid collection is noted. Fluid within the sinuses/ mastoids is not seen. IMPRESSION: No acute intracranial abnormality is seen. Renal US: COMPARISON: Abdomen Pelvis Wo Contrast dated 01/27/2020 FINDINGS: Both kidneys are normal in size, shape and echotexture. The right kidney measures 9.7 cm. 1.2 cm anechoic lesion in the right kidney with increased through transmission consistent with a cyst. The left kidney measures 9.8 cm. No hydronephrosis, focal mass or perinephric fluid. The urinary bladder is incompletely distended without gross abnormality seen. Incidentally noted anechoic lesion in the spleen measuring 2.8 cm is noted. IMPRESSION: No evidence of hydronephrosis. Splenic and right renal cysts. Carotid Doppler: COMPARISON: Brain Wo Cont dated 03/17/2021 TECHNIQUE: Real-time sonographic evaluation of both carotid systems was performed. Doppler interrogation was performed with waveform tracing bilaterally. FINDINGS: Normal high resistance waveforms are noted in both external carotid arteries. The common carotid arteries and internal carotid arteries show normal low resistance waveforms. Scattered mild hard plaque at the carotid bulbs and right common carotid artery. Peak systolic and end diastolic velocity values and the ICA/CCA ratios are in the non-hemodynamically significant range. Antegrade flow seen in both vertebral arteries. IMPRESSION: Mild atherosclerotic changes. No evidence of a hemodynamically significant stenosis. MRI [facility]: COMPARISON: Head Brain Wo Cont dated 03/17/2021 TECHNIQUE: Sagittal T1-weighted images were obtained along with PD/heavily T2- weighted and T2-FLAIR images. Axial DWI and ADC mapping sequences were also obtained along with coronal heavily T2-weighted images were obtained. FINDINGS: No intracranial hemorrhage, mass or acute infarction. There is no edema or shift of midline structures. No extra-axial fluid collections. Chronic small vessel ischemic changes. Signal voids are seen as a normal finding in the major intracranial vessels. 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 Mastoid air cells and paranasal sinuses are clear. IMPRESSION: No acute intracranial abnormality. Specifically, no evidence of acute infarct. Physical Exam: GENERAL: The patient is a well-developed, well-nourished, in no apparent distress. Alert and oriented x3. VITAL SIGNS: Reviewed HEENT: Neck supple LUNGS: Clear to auscultation. No crackles or wheezes are heard. HEART: Regular rate and rhythm, no appreciable gallops, rubs, murmurs or extra heart sounds ABDOMEN: Soft, nontender, and nondistended. Positive bowel sounds. No hepatosplenomegaly was noted. EXTREMITIES: Without any cyanosis, clubbing, rash, lesions or peripheral edema. NEUROLOGIC: The patient is oriented to person, place and time. Strength and sensation are grossly intact. Face is symmetric. SKIN: Normal color, turgor and temperature. No ulcerations or rashes noted. Impression: Dizziness secondary to acute renal injury likely prerenal with underlying chronic renal disease stage III Hyponatremia likely related to above Atrial fibrillation on chronic anticoagulation therapy Hypertension Diabetes mellitus type 2 Plan: Dizziness secondary to acute renal injury likely prerenal with underlying chronic renal disease stage III: CT head and MRI brain unremarkable. Carotid Doppler also unremarkable. No evidence of UTI. Will discontinue Rocephin. Renal function improved. Continue with nephrology recommendation. Nephrology has discontinued Aldactone. 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 IV fluids to be started. We will continue to reassess and monitor closely. Hyponatremia likely related to above: Continue with nephrology recommendations. Atrial fibrillation on chronic anticoagulation therapy: Continue amiodarone 200 mg daily, Eliquis 2.5 mg 1 pill twice daily, and metoprolol 25 mg 1 pill twice daily. Hypertension: Continue metoprolol 25 mg 1 pill twice daily Diabetes mellitus type 2: We will check A1c. Will need to obtain and verify home medication. Chronic diastolic CHF: Patient to get IV fluids. Aldactone has been discontinued. Continue Lasix. Continue with nephrology recommendations. Code Status: Full Code DVT prophylaxis: Khalida Advanced Care Planning-30 minutes: Home at discharge Time Spent Managing Pts Care (In Minutes): 55
[2021-03-20] MEDS: APIXABAN 2.5 MG TABLET PO SCH ×3 (09:00→18:16)
[2021-03-20] MEDS: AMIODARONE HCL 200 MG TAB PO SCH ×2 (09:34→18:15)
[2021-03-20] MEDS: INSULIN -REGULAR HUMAN 50 UNIT/0.5 ML ML SQ SCH ×4 (09:34→21:05)
[2021-03-20] MEDS: FUROSEMIDE 40 MG TABLET PO SCH (09:34)
[2021-03-20] MEDS: CEFTRIAXONE 1 GM/NS 50 ML 1 GM/50 ML BAG IV SCH (09:35)
[2021-03-20] MEDS ORDERED: NA CHLORIDE 0.9% 1,000 ML IV SCH (10:00)
[2021-03-20 15:54] LABS: Magnesium 2.1 mg/dL (1.8-2.4); Phosphorus 3.6 mg/dL (2.5-4.9); Potassium 4.7 mmol/L (3.5-5.1)
[2021-03-20] MEDS ORDERED: FUROSEMIDE 40 MG TABLET PO SCH (16:00)
--- NOTE | 2021-03-21 00:15 | PN ---
Date of Progress Note: 03/20/2021 Chief Complaint: Acute kidney injury associated with hyponatremia. History: Patient was treated with diuretics at home including Lasix and spironolactone. On arrival to the hospital, sodium level was 125 and subsequently improved to 130. Over last 24 hours, sodium l evel declined. Patient is on p.o. fluid restriction. She is on Lasix for congestive heart failure. She states amiodarone, Lasix, as well as potassium supplementation at home, spironolactone is on hol d. Review of Systems: Patient denies fever, chills. Physical Examination: Lungs: Clear to auscultation bilaterally. Heart: S1, S2. Abdomen: Soft, benign. Extremities: No edema. Laboratory Data: Sodium 124, potassium 4.7, chloride 89, CO2 28, BUN 28, creatinine 116, glucose 227 , calcium 8.4, magnesium 2.1, phosphorus 3.6. BNP 798. Impression And Plan: 1.Hyponatremia hyperosmolar. The patient will continue p.o. fluid restriction and Lasix to prevent fluid overload. Patient is to have sodium chloride tablet for hyponatremia. Monitor fluid balance. 2.Hypertension, blood pressure controlled. Hold blood pressure medication if systolic blood pressur e is below 110. 3.Acute on chronic kidney injury. Avoid nephrotoxic medication. Continue Lasix for volume control. 4.Diabetes mellitus, likely patient has diabetic kidney disease. Monitor proteinuria. 5.Urinary tract infection. Continue ceftriaxone. EB/MODL Voice ID: [id number] Report ID: [id number]
[2021-03-21] MEDS ORDERED: FUROSEMIDE 40 MG/4 ML VIAL IV SCH (01:00)
[2021-03-21] MEDS: APIXABAN 2.5 MG TABLET PO SCH ×2 (03:39→15:40)
[2021-03-21] MEDS: METOPROLOL TAR 25 MG TAB PO SCH ×2 (03:39→15:40)
[2021-03-21 05:50] LABS: Albumin 3.2 g/dL (3.4-5.0); Phosphorus 4.4 mg/dL (2.5-4.9); Potassium 4.1 mmol/L (3.5-5.1); Uric Acid 6.7 mg/dL (2.6-6.0)
--- NOTE | 2021-03-21 06:14 | P.PN ---
Subjective Date of Service: 03/21/21 Primary Care Provider: Dr. Petersen Chief Complaint: Hyponatremia, orthostatic Subjective: Improving, Doing well Physical Examination - Vital Signs Temperature: 97.3 F Blood Pressure: 109/61 Pulse: 59 Respirations: 18 Pulse Ox (%): 99 Assessment & Plan Discharge Plan: Home Plan to discharge in: 24 Hours Physician Review Additional Text: COVID: negative CT Head: COMPARISON: None. TECHNIQUE: Computed axial tomography of the head was obtained. IV contrast was not requested. All CT scans are performed using dose optimization technique as appropriate and may include automated exposure control or mA/KV adjustment according to patient size. FINDINGS: An intracranial bleed is not seen . The ventricles are normal in caliber. No extra-axial fluid collection is noted. Fluid within the sinuses/ mastoids is not seen. IMPRESSION: No acute intracranial abnormality is seen. Renal US: COMPARISON: Abdomen Pelvis Wo Contrast dated 01/27/2020 FINDINGS: Both kidneys are normal in size, shape and echotexture. The right kidney measures 9.7 cm. 1.2 cm anechoic lesion in the right kidney with increased through transmission consistent with a cyst. The left kidney measures 9.8 cm. No hydronephrosis, focal mass or perinephric fluid. The urinary bladder is incompletely distended without gross abnormality seen. Incidentally noted anechoic lesion in the spleen measuring 2.8 cm is noted. IMPRESSION: No evidence of hydronephrosis. Splenic and right renal cysts. Carotid Doppler: COMPARISON: Brain Wo Cont dated 03/17/2021 TECHNIQUE: Real-time sonographic evaluation of both carotid systems was performed. Doppler interrogation was performed with waveform tracing bilaterally. FINDINGS: Normal high resistance waveforms are noted in both external carotid arteries. The common carotid arteries and internal carotid arteries show normal low resistance waveforms. Scattered mild hard plaque at the carotid bulbs and right common carotid artery. Peak systolic and end diastolic velocity values and the ICA/CCA ratios are in the non-hemodynamically significant range. Antegrade flow seen in both vertebral arteries. IMPRESSION: Mild atherosclerotic changes. No evidence of a hemodynamically significant stenosis. MRI [facility]: COMPARISON: Head Brain Wo Cont dated 03/17/2021 TECHNIQUE: Sagittal T1-weighted images were obtained along with PD/heavily T2- weighted and T2-FLAIR images. Axial DWI and ADC mapping sequences were also obtained along with coronal heavily T2-weighted images were obtained. FINDINGS: No intracranial hemorrhage, mass or acute infarction. There is no edema or shift of midline structures. No extra-axial fluid collections. Chronic small vessel ischemic changes. Signal voids are seen as a normal finding in the major intracranial vessels. 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 Mastoid air cells and paranasal sinuses are clear. IMPRESSION: No acute intracranial abnormality. Specifically, no evidence of acute infarct. Physical Exam: GENERAL: The patient is a well-developed, well-nourished, in no apparent distress. Alert and oriented x3. VITAL SIGNS: Reviewed HEENT: Neck supple LUNGS: Clear to auscultation. No crackles or wheezes are heard. HEART: Regular rate and rhythm, no appreciable gallops, rubs, murmurs or extra heart sounds ABDOMEN: Soft, nontender, and nondistended. Positive bowel sounds. No hepatosplenomegaly was noted. EXTREMITIES: Without any cyanosis, clubbing, rash, lesions or peripheral edema. NEUROLOGIC: The patient is oriented to person, place and time. Strength and sensation are grossly intact. Face is symmetric. SKIN: Normal color, turgor and temperature. No ulcerations or rashes noted. Impression: Dizziness secondary to acute renal injury likely prerenal with underlying chronic renal disease stage III Hyponatremia likely related to above Atrial fibrillation on chronic anticoagulation therapy Hypertension Diabetes mellitus type 2 Plan: Dizziness secondary to acute renal injury likely prerenal with underlying chronic renal disease stage III: CT head and MRI brain unremarkable. Carotid Doppler also unremarkable. No evidence of UTI. No function improved. Sodium level also improved. Will discuss with nephrology about plan of care. Likely discharge as early as today or tomorrow. Aldactone has been discontinued. Continue with Lasix. Hyponatremia likely related to above: Continue with nephrology recommendations. Atrial fibrillation on chronic anticoagulation therapy: Continue amiodarone 200 mg daily, Eliquis 2.5 mg 1 pill twice daily, and metoprolol 25 mg 1 pill twice daily. Hypertension: Continue metoprolol 25 mg 1 pill twice daily Diabetes mellitus type 2: We will check A1c. Will need to obtain and verify home medication. Chronic diastolic CHF: Aldactone has been discontinued. Continue Lasix. Code Status: Full Code DVT prophylaxis: Eliquis Advanced Care Planning-30 minutes: Home at discharge Time Spent Managing Pts Care (In Minutes): 55
[2021-03-21] MEDS: INSULIN -REGULAR HUMAN 50 UNIT/0.5 ML ML SQ SCH ×4 (07:30→21:10)
[2021-03-21] MEDS ORDERED: SODIUM CHLORIDE 1 GM TAB PO ONE (09:00)
[2021-03-21] MEDS: ONDANSETRON 4 MG/2 ML VIAL IV PRN (10:20)
--- NOTE | 2021-03-21 14:01 | RAD REPORT ---
EXAM DESCRIPTION: RAD - Chest Single View - 03/21/2021 1:50 pm CLINICAL HISTORY: COPD COMPARISON: March 17 TECHNIQUE: AP portable chest image was obtained 03/21/2021 1:50 pm . FINDINGS: Prominent interstitial pattern matches comparison. No new consolidation, mass or failure f inding seen. Heart and vasculature are normal. No measurable pleural effusion and no pneumothorax. No acute bony abnormality seen. No acute aortic findings suspected. IMPRESSION: No acute cardiopulmonary process. Chest findings are stable from March 17.
[2021-03-21] MEDS ORDERED: LACTULOSE 20 GM/30 ML UCUP PO PRN (14:48)
--- NOTE | 2021-03-21 14:52 | PN ---
Date of Progress Note: 03/21/2021 Subjective: The patient was admitted with acute kidney injury secondary to prerenal, over diuresis. The patient had dilutional hyponatremia. After improvement in kidney function, we resumed Lasix. W e kept holding the spironolactone. Sodium gradually trended up. The patient was started on salt tab lets and liberal diet, sodium gradually trending up. Physical Examination: Vital Signs: When I saw the patient; blood pressure 109/60, pulse of 59, afebrile. The patient had good urine output, voiding. Chest: Clear to auscultation. Heart: S1, S2. Regular. Abdomen: Soft, nontender. Extremities: No edema. Neurologic: Alert. No focality. Laboratory Data: WBC 8.4, H and H 11.4/31.4. Sodium 128, potassium 4.1, bicarb 25, BUN 30, creatini ne 1.1, glucose 258, uric acid 6.7, calcium 8.4, phosphorus 4.4, albumin 3.2. Current Medications: The patient on include; 1.Eliquis. 2.Amiodarone 200 daily. 3.Metoprolol. 4.Lasix 40 daily. 5.Salt tablet 1 g daily. Assessment And Plan: 1.Acute kidney injury secondary to over diuresis, recovered, resolved. Looked to me normal volume t o dry side. I am going to go ahead and decrease the Lasix to 20 mg and we will monitor the patient. 2.Hyponatremia secondary to dilutional. I am going to go ahead and increase her salt tablet to b.i. d. We will continue to monitor. Expectation of discharge by tomorrow. 3.Hypertension, controlled, optimal. Continue current treatment. 4.Diabetes as by primary. 5.Urinary tract infection. Culture negative. We will follow up with primary. BOBO/YI Voice ID: [id number] Report ID: [id number]
[2021-03-21] MEDS: AMIODARONE HCL 200 MG TAB PO SCH (15:40)
[2021-03-21] MEDS ORDERED: FUROSEMIDE 20 MG TABLET PO SCH (16:00)
[2021-03-21] MEDS: SODIUM CHLORIDE 1 GM TAB PO SCH (18:13)
[2021-03-22] MEDS: APIXABAN 2.5 MG TABLET PO SCH (04:42)
[2021-03-22] MEDS: METOPROLOL TAR 25 MG TAB PO SCH (04:42)
[2021-03-22 04:51] VITALS: O2SAT 99
--- NOTE | 2021-03-22 06:05 | P.PN ---
Subjective Date of Service: 03/22/21 Primary Care Provider: Dr. Petersen Chief Complaint: Hyponatremia, orthostatic Subjective: Improving, Doing well Physical Examination - Vital Signs Temperature: 97.9 F Blood Pressure: 107/60 Pulse: 59 Respirations: 17 Pulse Ox (%): 99 Assessment & Plan Discharge Plan: Home Plan to discharge in: 24 Hours Physician Review Additional Text: COVID: negative CT Head: COMPARISON: None. TECHNIQUE: Computed axial tomography of the head was obtained. IV contrast was not requested. All CT scans are performed using dose optimization technique as appropriate and may include automated exposure control or mA/KV adjustment according to patient size. FINDINGS: An intracranial bleed is not seen . The ventricles are normal in caliber. No extra-axial fluid collection is noted. Fluid within the sinuses/ mastoids is not seen. IMPRESSION: No acute intracranial abnormality is seen. Renal US: COMPARISON: Abdomen Pelvis Wo Contrast dated 01/27/2020 FINDINGS: Both kidneys are normal in size, shape and echotexture. The right kidney measures 9.7 cm. 1.2 cm anechoic lesion in the right kidney with increased through transmission consistent with a cyst. The left kidney measures 9.8 cm. No hydronephrosis, focal mass or perinephric fluid. The urinary bladder is incompletely distended without gross abnormality seen. Incidentally noted anechoic lesion in the spleen measuring 2.8 cm is noted. IMPRESSION: No evidence of hydronephrosis. Splenic and right renal cysts. Carotid Doppler: COMPARISON: Brain Wo Cont dated 03/17/2021 TECHNIQUE: Real-time sonographic evaluation of both carotid systems was performed. Doppler interrogation was performed with waveform tracing bilaterally. FINDINGS: Normal high resistance waveforms are noted in both external carotid arteries. The common carotid arteries and internal carotid arteries show normal low resistance waveforms. Scattered mild hard plaque at the carotid bulbs and right common carotid artery. Peak systolic and end diastolic velocity values and the ICA/CCA ratios are in the non-hemodynamically significant range. Antegrade flow seen in both vertebral arteries. IMPRESSION: Mild atherosclerotic changes. No evidence of a hemodynamically significant stenosis. MRI [facility]: COMPARISON: Head Brain Wo Cont dated 03/17/2021 TECHNIQUE: Sagittal T1-weighted images were obtained along with PD/heavily T2- weighted and T2-FLAIR images. Axial DWI and ADC mapping sequences were also obtained along with coronal heavily T2-weighted images were obtained. FINDINGS: No intracranial hemorrhage, mass or acute infarction. There is no edema or shift of midline structures. No extra-axial fluid collections. Chronic small vessel ischemic changes. Signal voids are seen as a normal finding in the major intracranial vessels. 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 Mastoid air cells and paranasal sinuses are clear. IMPRESSION: No acute intracranial abnormality. Specifically, no evidence of acute infarct. Physical Exam: GENERAL: The patient is a well-developed, well-nourished, in no apparent distress. Alert and oriented x3. VITAL SIGNS: Reviewed HEENT: Neck supple LUNGS: Clear to auscultation. No crackles or wheezes are heard. HEART: Regular rate and rhythm, no appreciable gallops, rubs, murmurs or extra heart sounds ABDOMEN: Soft, nontender, and nondistended. Positive bowel sounds. No hepatosplenomegaly was noted. EXTREMITIES: Without any cyanosis, clubbing, rash, lesions or peripheral edema. NEUROLOGIC: The patient is oriented to person, place and time. Strength and sensation are grossly intact. Face is symmetric. SKIN: Normal color, turgor and temperature. No ulcerations or rashes noted. Impression: Dizziness secondary to acute renal injury likely prerenal with underlying chronic renal disease stage III Hyponatremia likely related to above Atrial fibrillation on chronic anticoagulation therapy Hypertension Diabetes mellitus type 2 Plan: Dizziness secondary to acute renal injury likely prerenal with underlying chronic renal disease stage III: CT head and MRI brain unremarkable. Carotid Doppler also unremarkable. No evidence of UTI. No function improved. Edema level up to 130. Overall stable. Patient will continue with Lasix and sodium chloride at discharge. Plan for discharge today. Hyponatremia likely related to above: Continue with nephrology recommendations. Atrial fibrillation on chronic anticoagulation therapy: Continue amiodarone 200 mg daily, Eliquis 2.5 mg 1 pill twice daily, and metoprolol 25 mg 1 pill twice daily. Hypertension: Continue metoprolol 25 mg 1 pill twice daily Diabetes mellitus type 2: Will need to obtain and verify home medication. Chronic diastolic CHF: Aldactone has been discontinued. Continue Lasix. Code Status: Full Code DVT prophylaxis: Eliquis Advanced Care Planning-30 minutes: Home at discharge Time Spent Managing Pts Care (In Minutes): 55
[2021-03-22 06:40] LABS: Albumin 3.4 g/dL (3.4-5.0); Phosphorus 3.8 mg/dL (2.5-4.9); Potassium 4.2 mmol/L (3.5-5.1)
[2021-03-22 08:54] VITALS: BP 107/60; TEMP 97.9
--- NOTE | 2021-03-22 08:55 | P.DS ---
Admission Date: 03/18/21 Discharge Date: 03/22/21 Primary Care Provider: Dr. Petersen Disposition: ROUTINE DISCHARGE Discharge Condition: GOOD Reason for Admission: Hyponatremia, orthostatic Consultations: Nephrology-Dr. Morejon Neurology-Dr Saldaña Procedures: COVID: negative CT Head: COMPARISON: None. TECHNIQUE: Computed axial tomography of the head was obtained. IV contrast was not requested. All CT scans are performed using dose optimization technique as appropriate and may include automated exposure control or mA/KV adjustment according to patient size. FINDINGS: An intracranial bleed is not seen . The ventricles are normal in caliber. No extra-axial fluid collection is noted. Fluid within the sinuses/ mastoids is not seen. IMPRESSION: No acute intracranial abnormality is seen. Renal US: COMPARISON: Abdomen Pelvis Wo Contrast dated 01/27/2020 FINDINGS: Both kidneys are normal in size, shape and echotexture. The right kidney measures 9.7 cm. 1.2 cm anechoic lesion in the right kidney with increased through transmission consistent with a cyst. The left kidney measures 9.8 cm. No hydronephrosis, focal mass or perinephric fluid. The urinary bladder is incompletely distended without gross abnormality seen. Incidentally noted anechoic lesion in the spleen measuring 2.8 cm is noted. IMPRESSION: No evidence of hydronephrosis. Splenic and right renal cysts. Carotid Doppler: COMPARISON: Brain Wo Cont dated 03/17/2021 TECHNIQUE: Real-time sonographic evaluation of both carotid systems was performed. Doppler interrogation was performed with waveform tracing bilaterally. FINDINGS: Normal high resistance waveforms are noted in both external carotid arteries. The common carotid arteries and internal carotid arteries show normal low resistance waveforms. Scattered mild hard plaque at the carotid bulbs and right common carotid artery. Peak systolic and end diastolic velocity values and the ICA/CCA ratios are in the non-hemodynamically significant range. Antegrade flow seen in both vertebral arteries. IMPRESSION: Mild atherosclerotic changes. No evidence of a hemodynamically significant stenosis. MRI BRain: COMPARISON: Head Brain Wo Cont dated 03/17/2021 TECHNIQUE: Sagittal T1-weighted images were obtained along with PD/heavily T2- weighted and T2-FLAIR images. Axial DWI and ADC mapping sequences were also obtained along with coronal heavily T2-weighted images were obtained. FINDINGS: No intracranial hemorrhage, mass or acute infarction. There is no edema or shift of midline structures. No extra-axial fluid collections. Chronic small vessel ischemic changes. Signal voids are seen as a normal finding in the major intracranial vessels. 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 Mastoid air cells and paranasal sinuses are clear. IMPRESSION: No acute intracranial abnormality. Specifically, no evidence of acute infarct. Medical problem list:: Dizziness secondary to acute renal injury likely prerenal with underlying chronic renal disease stage III Hyponatremia likely related to above Atrial fibrillation on chronic anticoagulation therapy Hypertension Diabetes mellitus type 2 Brief History of Present Illness: 70-year-old female presented with dizziness. Patient with near syncope episodes. Patient was admitted for further evaluation and treatment. Hospital Course: Patient presented with dizziness secondary to acute renal injury likely prerenal with underlying chronic renal disease stage III. Work-up included unremarkable CT head and MRI. Carotid Doppler also unremarkable. No evidence of UTI identified. Nephrology was consulted to further evaluate. Patient with underlying history of atrial fibrillation on chronic anticoagulation therapy, hypertension, diabetes mellitus type 2 and chronic diastolic CHF. Medications have been adjusted. Patient was taken off Aldactone. Her Lasix has been dis continued. Patient required sodium chloride. Her hyponatremia improved. Sodium level up to 130. Patient appropriate and doing well. At discharge she will continue with Lasix 20 mg daily and sodium chloride 1 tablet twice daily. Recommend to recheck labBMP in 1 week. Recommend follow-up with nephrology in 1-2 week to follow-up his hospitalization. Further adjustment in her medication may be required. This can be done with the help of her PCP or nephrology. Recommend follow-up with PCP to further monitor and address. Patient with atrial fibrillation on chronic anticoagulation therapy. Patient overall stable. At discharge she will continue with amiodarone 200 mg daily, Eliquis 2.5 mg 1 pill twice daily, and metoprolol 25 mg 1 pill twice daily. Patient with hypertension. Patient will continue with metoprolol 25 mg 1 pill twice daily. Recommend to maintain blood pressure less than 130/80. May need to hold medication if blood pressure systolic less than 110 or heart rate less than 50. Further adjustment can be done by her PCP. Patient with diabetes mellitus type 2. Hemoglobin A1c obtained. Recommend to continue a diabetic diet. Recommend to maintain blood sugar less than 140 fasting less than 200 after meals. If blood sugars remain above 200 patient may require medication. This can be done with the help of her PCP. Recommend to recheck hemoglobin A1c every 3 months to monitor progress. Recommend follow-up with her PCP within 1 week to follow-up this closely. As mentioned above Aldactone has been discontinued. Lasix has been decreased to 20 mg daily. Patient with chronic diastolic CHF. Medications have been adjusted. Continue with above plan of care. Vital Signs/Physical Exam: Temp Pulse Resp BP Pulse Ox 97.9 F 59 17 107/60 99 03/22/21 08:53 03/22/21 08:53 03/22/21 08:53 03/22/21 08:53 03/22/21 08:53 General: Alert, In no apparent distress, Oriented x3, Cooperative HEENT: Atraumatic Neck: Supple Respiratory: Clear to auscultation bilaterally, Normal air movement Cardiovascular: Normal pulses, Regular rate/rhythm Gastrointestinal: Normal bowel sounds Musculoskeletal: No erythema, No tenderness, No warmth Integumentary: No tenderness/swelling Neurological: Normal speech, Normal strength at 5/5 x4 extr, Normal tone Laboratory Data at Discharge: WBC 8.40 K/uL (4.3-10.9) 03/20/21 04:14 Hgb 11.4 g/dL (12.0-15.0) L 03/20/21 04:14 Hct 31.4 % (36.0-45.0) L 03/20/21 04:14 Plt Count 220 K/uL (152-406) 03/20/21 04:14 PT 16.1 SECONDS (9.5-12.5) H 03/17/21 10:11 INR 1.40 03/17/21 10:11 Sodium 130 mmol/L (136-145) L 03/22/21 05:34 Potassium 4.2 mmol/L (3.5-5.1) 03/22/21 05:34 BUN 34 mg/dL (7-18) H 03/22/21 05:34 Creatinine 1.18 mg/dL (0.55-1.3) 03/22/21 05:34 Glucose 260 mg/dL (74-106) H 03/22/21 05:34 Uric Acid 6.7 mg/dL (2.6-6.0) H 03/21/21 04:54 Uric Acid Cancelled 03/21/21 04:54 Phosphorus 3.8 mg/dL (2.5-4.9) 03/22/21 05:34 Magnesium 2.1 mg/dL (1.8-2.4) 03/20/21 15:30 Total Bilirubin 0.4 mg/dL (0.2-1.0) 03/20/21 04:14 AST 17 U/L (15-37) 03/20/21 04:14 ALT 16 U/L (12-78) 03/20/21 04:14 Alkaline Phosphatase 79 U/L (45-117) 03/20/21 04:14 Troponin I < 0.02 ng/mL (0.0-0.045) 03/17/21 22:10 Home Medications: Amiodarone HCl [Cordarone*] 200 mg PO SEECOM 01/28/20 Aspirin Chewable [Aspirin Chewable*] 81 mg PO DAILY 01/28/20 Apixaban [Eliquis *] 1 tab PO Q12H 03/17/21 Metoprolol Tartrate 1 tab PO Q12H 03/17/21 Furosemide [Lasix*] 20 mg PO DAILY@1600 #30 tab 03/22/21 Sodium Chloride Tab [Sodium Chloride*] 1 gm PO BIDWM #60 tab 03/22/21 New Medications: Furosemide [Lasix*] 20 mg PO DAILY@1600 #30 tab Sodium Chloride Tab [Sodium Chloride*] 1 gm PO BIDWM #60 tab Physician Discharge Instructions: Patient presented with dizziness secondary to acute renal injury likely prerenal with underlying chronic renal disease stage III. Work-up included unremarkable CT head and MRI. Carotid Doppler also unremarkable. No evidence of UTI identified. Nephrology was consulted to further evaluate. Patient with underlying history of atrial fibrillation on chronic anticoagulation therapy, hypertension, diabetes mellitus type 2 and chronic diastolic CHF. Medications have been adjusted. Patient was taken off Aldactone. Her Lasix has been di scontinued. Patient required sodium chloride. Her hyponatremia improved. Sodium level up to 130. Patient appropriate and doing well. At discharge she will continue with Lasix 20 mg daily and sodium chloride 1 tablet twice daily. Recommend to recheck labBMP in 1 week. Recommend follow-up with nephrology in 1-2 week to follow-up his hospitalization. Further adjustment in her medication may be required. This can be done with the help of her PCP or nephrology. Recommend follow-up with PCP to further monitor and address. Patient with atrial fibrillation on chronic anticoagulation therapy. Patient overall stable. At discharge she will continue with amiodarone 200 mg daily, Eliquis 2.5 mg 1 pill twice daily, and metoprolol 25 mg 1 pill twice daily. Patient with hypertension. Patient will continue with metoprolol 25 mg 1 pill twice daily. Recommend to maintain blood pressure less than 130/80. May need to hold medication if blood pressure systolic less than 110 or heart rate less than 50. Further adjustment can be done by her PCP. Patient with diabetes mellitus type 2. Hemoglobin A1c obtained. Recommend to continue a diabetic diet. Recommend to maintain blood sugar less than 140 fasting less than 200 after meals. If blood sugars remain above 200 patient may require medication. This can be done with the help of her PCP. Recommend to recheck hemoglobin A1c every 3 months to monitor progress. Recommend follow-up with her PCP within 1 week to follow-up this closely. As mentioned above Aldactone has been discontinued. Lasix has been decreased to 20 mg daily. Patient with chronic diastolic CHF. Medications have been adjusted. Continue with above plan of care. Diet: AHA Activity: Fall precautions Followup: Roc Petersen MD [Primary Care Provider] - Time spent managing pt's care (in minutes): 55
[2021-03-22] MEDS: SODIUM CHLORIDE 1 GM TAB PO SCH (08:58)
[2021-03-22] MEDS: INSULIN -REGULAR HUMAN 50 UNIT/0.5 ML ML SQ SCH ×2 (08:59→11:30)
[2021-03-22] MEDS ORDERED: DOCUSATE NA 100 MG CAP PO SCH (09:00)
[2021-03-22 09:27] LABS: Urine Blood Negative (Negative); Urine Glucose Negative (Negative); Urine Protein Negative (Negative); Urine pH 6.5 (5.0-7.0)
--- NOTE | 2021-03-22 11:43 | PN ---
Date of Progress Note: 03/22/2021 Subjective: The patient was admitted with acute kidney injury, hyponatremia secondary to dilutional. Physical Examination: Vital Signs: When I saw the patient; blood pressure 107/60, pulse of 59, afebrile. Chest: Clear to auscultation. Heart: S1, S2. Regular. Systolic murmur. Abdomen: Soft, nontender. Extremities: No edema. Neurologic: Alert. No focality. Laboratory Data: H and H 11.4/31.4. Sodium 130 trending up, potassium 4.2, bicarb 27, BUN 34, creat inine 1.1. GFR 46, calcium 8.64, magnesium 3.8, albumin 3.4, PTH 90. Vitamin D is still pending. Current Medications: The patient on include Eliquis, amiodarone, metoprolol, Lasix 20 daily, lactulo se, docusate, salt tablet 1 tablet b.i.d. 1 g. Assessment And Plan: 1.Acute kidney injury secondary to prerenal, secondary to over diuresis with Lasix and spironolacton e. Currently normal volume on current dose of Lasix. Keep holding spironolactone. 2.Urinary tract infection. Culture was negative. 3.Hypertension, controlled, optimal. 4.Hyponatremia secondary to possible dilutional, response to current regimen. I am going to continu e Lasix with the salt tablet and we will follow up. ARPAN Voice ID: [id number] Report ID: [id number]
[2021-03-23 01:19] LABS: Vitamin D 1,25-Dihydroxy Total 28 pg/mL (18-72); Vitamin D,1,25-OH2, D2 <8 pg/mL
== END 2021-03-22 11:20 | disposition home or self-care (01) | DRG 292 ==
LOC: ER 09:37 → ERHOLD 12:57 → INTOOBSV 12:57 → OBSVTOIN 12:57 → 2ND 15:13 → OBSVTOIN 03-18 17:18
PROVIDERS: ADMIT Hospitalist; ATTEND Hospitalist
DX: I13.0 Hypertensive heart and chronic kidney disease with heart failure and stage 1 through stage 4 chronic kidney disease, or unspecified chronic kidney disease (principal); N17.9 Acute kidney failure, unspecified; I50.32 Chronic diastolic (congestive) heart failure; E87.1 Hypo-osmolality and hyponatremia; I48.20 Chronic atrial fibrillation, unspecified; N30.00 Acute cystitis without hematuria; E11.22 Type 2 diabetes mellitus with diabetic chronic kidney disease; N18.30 Chronic kidney disease, stage 3 unspecified; Z79.01 Long term (current) use of anticoagulants; E11.40 Type 2 diabetes mellitus with diabetic neuropathy, unspecified; R01.1 Cardiac murmur, unspecified; Z86.16 Personal history of COVID-19; Z88.0 Allergy status to penicillin; Z20.822 Contact with and (suspected) exposure to COVID-19
CPT/HCPCS: 36415; 70450; 70551; 71045; 76770; 80048; 80053; 80069; 80076; 81003; 81015; 82652; 82947; 83036; 83735; 83880; 83930; 83935; 83970; 84100; 84295; 84300; 84439; 84443; 84484; 84550; 85025; 85610; 87086; 87088; 93880; 99284; G0378; J0696; J2405; J2597; J7030; U0003

== ENCOUNTER 2021-06-24 16:32 | Emergency (ER) | payer OTHER ==
--- OUTSIDE RECORDS SUMMARY | 2021-06-24 16:35 | XMS REPORT | Continuity of Care Document ---
:1950 Author Organization [facility] t Address [address] [place] [address] Care Team Providers Name Role Phone Chiki Rausch Attending Clinician Unavailable Sarika Petersen Admitting Clinician Unavailable Payers Payer Name Policy Type Policy Number Effective Date Expiration Date S ource Problems This patient has no known problems. Allergies, Adverse Reactions, Alerts Allergy Allergy Status Severity Reaction(s) Onset Inactive Treating Comm ents Source Name Type Date Date Clinician penicill DA Active IA 2020-0 [facility] in G 5-02 Clear 00:00: C[place] 00 [facility] penicill DA Active [place] SHORTNESS OF 2020-0 [facility] in G BREATH 5-02 Clear 00:00: [place] 00 [facility] Medications This patient has no known medications. Procedures Procedure Date / Time Performed Performing Clinician Rachel chamberlain [id number] 2019-10-28 00:00:00 MAURA BERNARDO [facility] Encounters Start End Encounter Admission Attending Care Care Encounter Source Date/Time Date/Time Type Type Clinicians Facility Department ID 2019-10-24 Inpatient SAIMA TRUJILLO [id number] [facility] 19:28:00 [facility] 2019-10-25 2019-10-25 Outpatient YULI Rausch [id number] [facility] 07:07:00 07:07:00 [facility] [id number] [facility] Results Test Description Test Time Test Comments Results Result Comments Source GLUCOSE BEDSIDE TESTING 2019-10-29 16:46:00 Test Item Value Reference Range Interpretation Comme nts GLUCOSE BEDSIDE TESTING (test code = GLUBED) 116 mg/dL 70-110 H GLUCOSE BEDSIDE [id number] 12:01:00 Test Item Value Reference Range Interpretation Comments GLUCOSE BEDSIDE TESTING (test code 156 mg/dL 70-110 H = GLUBED) GLUCOSE BEDSIDE [id number] 08:28:00 Test Item Value Reference Range Interpretation Comments GLUCOSE BEDSIDE TESTING (test code 115 mg/dL 70-110 H = GLUBED) GLUCOSE BEDSIDE [id number] 19:53:00 Test Item Value Reference Range Interpretation Comments GLUCOSE BEDSIDE TESTING (test code 147 mg/dL 70-110 H = GLUBED) GLUCOSE BEDSIDE [id number] 15:59:00 Test Item Value Reference Range Interpretation Comments GLUCOSE BEDSIDE TESTING (test code 166 mg/dL 70-110 H = GLUBED) GLUCOSE BEDSIDE [id number] 08:06:00 Test Item Value Reference Range Interpretation Comments GLUCOSE BEDSIDE TESTING (test code 158 mg/dL 70-110 H = GLUBED) NT PRO-BRAIN NATRIURETIC [id number] 05:47:00 Test Item Value Reference Range Interpretation Comments NT PRO-BRAIN NATRIURETIC PEPTI 2344 PG/ML 0-100 H (test code = PROBNP) BASIC METABOLIC [id number] 05:40:00 Test Item Value Reference Range Interpretation [...] CA) 8.4 MG/DL 8.5-10.1 L CBC W/AUTO [id number] 05:34:00 Test Item Value Reference Range Interpretation [...] = NO DIFF/SCN CRITERIA MDIFF) GLUCOSE BEDSIDE [id number] 20:46:00 Test Item Value Reference Range Interpretation Comments GLUCOSE BEDSIDE TESTING (test code 138 mg/dL 70-110 H = GLUBED) GLUCOSE BEDSIDE [id number] 16:32:00 Test Item Value Reference Range Interpretation Comments GLUCOSE BEDSIDE TESTING (test code 138 mg/dL 70-110 H = GLUBED) - XR SHOULDER 2+V [id number] 15:14:00 Name: ARMANI WILKES [place] : 1950 Age/S: 69 / F [address] Unit #: [id number] Loc: [place] [address] Phys: Sona Freed MD Acct: [id number] Dis Date: Status: ADM IN PHONE #: [phone] Exam Date: 10/27/2019 1448 FAX #: Reason: RIGHT SHOULDER PAIN EXAMS: CPT: [id number] XR SHOULDER 2+V [place] [address] Fluoro Time: DAP (Gy m2): Air Kerma [...] PAGE 1 Signed Report Name: ARMANI WILKES [place] : 1950 Age/S: 69 / F [address] [place] [address] Unit #: [id number]: [place] [address] Phys: Sona Freed MD Acct: [id number] Dis Date: Status: ADM IN PHONE #: [phone] Exam Date: 10/27/2019 1448 FAX #: Reason: RIGHT SHOULDER PAIN EXAMS: CPT: [id number] XR SHOULDER 2+[place] [address] Fluoro Time: DAP (Gy m2): Air Kerma (mGy): <Continued> Technologist: Carmen Beckman RT(R)(CT) Trnscb Date/Time: 10/27/2019 (9292) [email or web address] Orig Print D/T: S: 10/27/2019 (2445) PAGE 2 Signed ReportGLUCOSE BEDSIDE [id number] 11:23:00 Test Item Value Reference Range Interpretation Comments GLUCOSE BEDSIDE TESTING (test code 164 mg/dL 70-110 H = GLUBED) GLUCOSE BEDSIDE [id number] 07:35:00 Test Item Value Reference Range Interpretation Comments GLUCOSE BEDSIDE TESTING (test code 158 mg/dL 70-110 H = GLUBED) CBC W/AUTO [id number] 06:49:00 Test Item Value Reference Range Interpretation [...] = NO DIFF/SCN CRITERIA MDIFF) BASIC METABOLIC [id number] 06:49:00 Test Item Value Reference Range Interpretation [...] CA) 8.4 MG/DL 8.5-10.1 L GLUCOSE BEDSIDE [id number] 21:09:00 Test Item Value Reference Range Interpretation Comments GLUCOSE BEDSIDE TESTING (test code 246 mg/dL 70-110 H = GLUBED) GLUCOSE BEDSIDE [id number] 16:54:00 Test Item Value Reference Range Interpretation Comments GLUCOSE BEDSIDE TESTING (test code 197 mg/dL 70-110 H = GLUBED) - XR FOOT 3+V [id number] 14:28:00 Name[facility] [place] [facility] 1950 Age/S: 69 / F [address] Unit #: [id number] Loc: [place] [address] Phys: Roberto Guy MD Acct: [id number] Dis Date: Status: ADM IN PHONE #: [phone] Exam Date: 10/26/2019 1353 FAX #: Reason: bruisingand pain EXAMS: CPT: [id number] XR FOOT 3+V RT [address] Fluoro Time: DAP (Gy m2): Air Kerma [...] present. IMPRESSION: No acute osseous abnormality. at 1429 Reported and signed by: Donald Polanco MD CC: Roberto Guy MD; Raf Rausch MD; Roc Petersen III, MD PAGE 1Signed Report Name: ARMANI WILKES [place] : 1950 Age/S: 69 / F [id number] Unit #: [id number] Loc: [place] [address] Phys: Roberto Guy MD Acct: [id number] Dis Date: Status: ADM IN PHONE #: [phone] Exam Date: 10/26/2019 1353 FAX #: Reason: bruising and pain EXAMS: CPT: [id number] XR FOOT 3+V [place] 137[address] Fluoro Time: DAP (Gy m2): Air Kerma (mGy): <Co ntinued> Technologist: Yakelin Nguyen RT(R) Trnscb Date/Time: 10/26/2019 (1428) [email or web address] Orig Print D/T: S: 10/26/2019 (1751) PAGE 2 Signed Report- XR TIBIA/FIBULA 2 V [id number] 14:28:00 Name: ARMANI WILKES [facility] [place] : 1950 Age/S: 69 / F [id number] [facility] Unit #: [id number] Loc: [place] [address] Phys: Roberto Guy MD Acct: [id number] Dis Date: Status: ADM IN PHONE #: [phone] Exam Date: 10/26/2019 1400 FAX #: Reason: bruisingand pain EXAMS: CPT: [id number] XR TIBIA/FIBULA 2 [place] [address] Fluoro Time: DAP (Gy m2): Air Kerma [...] MD PAGE 1Signed Report Name: ARMANI WILKES [place] : 1950 Age/S: 69 / F [address] [facility] Unit #: [id number] Loc: [place] [address] Phys: Roberto Guy MD Acct: [id number] Dis Date: Status: ADM IN PHONE #: [phone] Exam Date: 10/26/2019 1400 FAX #: Reason: bruising and pain EXAMS: CPT: [id number] XR TIBIA/FIBULA 2 [place] [address] Fluoro Time: DAP (Gy m2): Air Kerma (mGy): <Continued> Technologist: Yakelin Nguyen, RT(R) Trnscb Date/Time: 10/26/2019 (1428) [email or web address] Orig Print D/T: S: 10/26/2019 (1431) PAGE 2 Signed ReportGLUCOSE BEDSIDE [id number] 11:28:00 Test Item Value Reference Range Interpretation Comments GLUCOSE BEDSIDE TESTING (test code 177 mg/dL 70-110 H = GLUBED) GLUCOSE BEDSIDE [id number] 07:43:00 Test Item Value Reference Range Interpretation Comments GLUCOSE BEDSIDE TESTING (test code 147 mg/dL 70-110 H = GLUBED) CBC W/AUTO [id number] 07:27:00 Test Item Value Reference Range Interpretation [...] = NO DIFF/SCN CRITERIA MDIFF) BASIC METABOLIC [id number] 07:27:00 Test Item Value Reference Range Interpretation [...] CA) 8.2 MG/DL 8.5-10.1 L GLUCOSE BEDSIDE [id number] 20:12:00 Test Item Value Reference Range Interpretation Comments GLUCOSE BEDSIDE TESTING (test code 170 mg/dL 70-110 H = GLUBED) GLUCOSE BEDSIDE [id number] 16:55:00 Test Item Value Reference Range Interpretation Comments GLUCOSE BEDSIDE TESTING (test code 122 mg/dL 70-110 H = GLUBED) GLUCOSE BEDSIDE [id number] 16:55:00 Test Item Value Reference Range Interpretation Comments GLUCOSE BEDSIDE TESTING (test code 220 mg/dL 70-110 H = GLUBED) PROTHROMBIN [id number] 13:05:00 Test Item Value Reference Range Interpretation Comments PT PATIENT (test code = PTP) 14.5 SECONDS 9.3-12.9 H INTERNATIONAL NORMAL RATIO 1.28 INR Unit 0.8-1.2 H (test code = INR) GLUCOSE BEDSIDE [id number] 08:08:00 Test Item Value Reference Range Interpretation Comments GLUCOSE BEDSIDE TESTING (test code 191 mg/dL 70-110 H = GLUBED) BASIC METABOLIC [id number] 06:54:00 Test Item Value Reference Range Interpretation [...] = LDL/HDL) 2.21 Ratio 1.48-3.22 Avg N [id number] 06:52:00 Test Item Value Reference Range Interpretation Comments GLYCOSYLATED HEMOGLOBIN (HA1C) 7.8 % A1C 0.0-5.7 H (test code = GLYHGB) ESTIMATED AVERAGE GLUCOSE (test 177 MG/DLest code = EAG) CBC W/AUTO [id number] 06:42:00 Test Item Value Reference Range Interpretation [...] (test code = NO DIFF/SCN CRITERIA MDIFF) [id number] 00:35:00 Test Item Value Reference Range Interpretation [...] may paresh yby method. Completed by Nursing: CARIN JOHNS ART [id number] 23:27:00 Name: ARMANI WILKES : 1950 Age/S: 69 / F [id number] Unit #: [id number] Loc: [place] [address] Phys: Que Summers NP Acct: [id number] Dis Date: Status: ADM IN PHONE #: [phone] Exam Date: 10/24/2019 2303 FAX #: Reason: HÉCTOR LOWER EXT COLD EXAMS: CPT: [id number] DUP LE ART HÉCTOR [address] HISTORY: Pain TECHNIQUE: Grayscale B-mode, color-flow, and [...] Technologist: Margaret Guevara RDMS Trnscb Date/Time: 10/24/2019 (2327) [email or web address] PAGE 1 Signed Report Name: ARMANI WILKES : 1950 Age/S: 69 / F [address] Unit #: [id number] Loc: [place] [address] Phys: Que Summers NP Acct: [id number] Dis Date: Status: ADM IN PHONE #: [phone] Exam Date: 10/24/2019 2300 FAX #: Reason: HÉCTOR LOWER EXT COLD EXAMS: CPT: [id number] DUP LE ART HÉCTOR [address] <Continued> Orig Print D/T: S: 10/24/2019 (2330) Probe: PAGE 2 Signed ReportGLUCOSE BEDSIDE [id number] 21:49:00 Test Item Value Reference Range Interpretation Comments GLUCOSE BEDSIDE TESTING (test code 192 mg/dL 70-110 H = GLUBED) [id number] 20:33:00 Test Item Value Reference Range Interpretation [...] may paresh yby method. Completed by Nursing: [facility] METABOLIC [id number] 20:19:00 Test Item Value Reference Range Interpretation [...] Unit/L 26-192 N CK) NT PRO-BRAIN NATRIURETIC [id number] 20:19:00 Test Item Value Reference Range Interpretation Comments NT PRO-BRAIN NATRIURETIC PEPTI 3548 PG/ML 0-100 H (test code = PROBNP) BASIC METABOLIC [id number] 20:13:00 Test Item Value Reference Range Interpretation [...] = CK) Unit/L 26-192 NT PRO-BRAIN NATRIURETIC [id number] 20:13:00 Test Item Value Reference Range Interpretation Comments NT PRO-BRAIN NATRIURETIC PEPTI (test PG/ML 0-100 code = PROBNP) - XR CHEST 1 [id number] 20:08:00 Name: ARMANI WILKES [facility] : 1950 Age/S: 69 / F [id number] Unit #: [id number] Loc: [place] [address] Phys: Chi Wasserman MD Acct: [id number] Dis Date: Status: ADM IN PHONE #: [phone] Exam Date: 10/24/20192004 FAX #: Reason: SOB EXAMS: CPT: [id number] XR CHEST 1 V 77383 Fluoro Time: DAP (Gy m2): Air Kerma [...] PAGE 1 Signed Report Name: [facility]MANI WILKES [facility] [place] : 1950 Age/S: 69 / F [address] Unit #: [id number] Loc:[place] [address] Phys: Chi Wasserman MD Acct: [id number] Dis Date: Status: ADM IN PHONE #: [phone] Exam Date: 10/24/20192004 FAX #: Reason: SOB EXAMS: CPT: [id number] XR CHEST 1 V 79119 Fluoro Ti me: DAP (Gy m2): Air Kerma (mGy): <Continued> Technologist: Argentina Foster RT(R)(CT)(MRI) Trnscb Date/Time: 10/24/2019 (2007) [email or web address] Orig Print D/T: S: 10/24/2019 (2011) PAGE 2 Signed ReportCBC W/O [id number] 20:06:00 Test Item Value Reference Range Interpretation [...]
[2021-06-24] MEDS ORDERED: NA CHLORIDE 0.9% 1,000 ML ONE (17:06)
[2021-06-24 17:08] LABS: Absolute Lymphocytes (CBC) 2.2 K/uL (0.7-4.9); Hematocrit 35.2 % (36.0-45.0); Lymphocytes % 27.1 % (15.3-44.8); MPV 7.5 fL (7.6-11.3); RBC Red Blood Cell Count 3.83 M/uL (3.86-4.86)
[2021-06-24] MEDS ORDERED: FOLIC ACID 5 MG/ML VIAL ONE (17:08)
[2021-06-24] MEDS ORDERED: NA CHLORIDE 0.9% 500 ML ONE (17:08)
[2021-06-24 17:11] LABS: Protime INR 1.3
--- NOTE | 2021-06-24 17:18 | RAD REPORT ---
EXAM DESCRIPTION: RAD - Chest Single View - 06/24/2021 5:04 pm CLINICAL HISTORY: COUGH COMPARISON: February 2021 TECHNIQUE: AP portable chest image was obtained 06/24/2021 5:04 pm . FINDINGS: No focal lung parenchymal process seen. Interstitial pattern matches comparison. Heart and vasculature are normal. No measurable pleural effusion and no pneumothorax. No acute bony abnormalit y seen. No acute aortic findings suspected. IMPRESSION: No acute cardiopulmonary process. No significant change from comparison study.
[2021-06-24 17:26] LABS: ALT/SGPT 17 U/L (12-78); AST/SGOT 15 U/L (15-37); Albumin 3.4 g/dL (3.4-5.0); Alkaline Phosphatase 93 U/L (45-117); BUN Blood Urea Nitrogen 21 mg/dL (7-18); Bicarbonate 26 mmol/L (21-32); Bilirubin Direct 0.1 mg/dL (0-0.2); Bilirubin Total 0.4 mg/dL (0.2-1.0); C-Reactive Protein 5.39 mg/L (<3.00); Glucose Level 145 mg/dL (74-106); Magnesium 2.1 mg/dL (1.8-2.4); NT PRO-BNP 1751 pg/mL (<125); Potassium 3.6 mmol/L (3.5-5.1); Sodium Level 131 mmol/L (136-145); Troponin (Emerg Dept Use Only) < 0.02 ng/mL (0.0-0.045)
--- NOTE | 2021-06-24 17:43 | ER ---
Nurse's Notes [facility] Name: Erum Mckay Age: 70 yrs Sex: Female : 1950 Arrival Date: 06/24/2021 Time: 16:33 Bed 7 Private MD: Diagnosis: Cerebral infarction, unspecified;Aphasia-resolved;Unspecified atrial fibrillation-history of Presentation: 06/24 16:41 Chief complaint: Patient's son or daughter states: pt was sitting at the table about an iw hour ago, c/o feeling dizzy, started slurring her words and was feeling like she was going to pass out, her BP was high and her BS was over 200, feels like her speech is better right now but it comes and goes, denies weakness but son reports she was unable to hold her spoon in right hand earlier. Coronavirus screen: At this time, the client does not indicate any symptoms associated with coronavirus-19. Ebola Screen: Patient negative for fever greater than or equal to 101.5 degrees Fahrenheit, and additional compatible Ebola Virus Disease symptoms Patient denies exposure to infectious person. Patient denies travel to an Ebola-affected area in the 21 days before illness onset. No symptoms or risks identified at this time. No acute neurological deficit is noted. Initial Sepsis Screen: Does the patient meet any 2 criteria? No. Patient's initial sepsis screen is negative. Does the patient have a suspected source of infection? No. Patient's initial sepsis screen is negative. Risk Assessment: Do you want to hurt yourself or someone else? Patient reports no desire to harm self or others. Onset of symptoms was June 24, 2021. 16:41 Method Of Arrival: Wheelchair iw 16:41 Acuity: VIRGILIO 2 iw Triage Assessment: 16:52 The onset of the patients symptoms was June 24, 2021 at 14:00. General: Appears patterson Behavior is calm, cooperative. Stroke Activation: Symptom onset < 3 hours Physician: Stroke Attending; Name: ; Notified At: ; Arrived At: Physician: Chief Stroke Resident; Name: ; Notified At: ; Arrived At: Physician: Stroke Resident; Name: ; Notified At: ; Arrived At: Physician: ED Attending; Name: ; Notified At: ; Arrived At: Physician: ED Resident; Name: ; Notified At: ; Arrived At: Historical: - Allergies: 16:43 PENICILLINS; iw - Home Meds: 16:43 Eliquis 2.5 mg Oral tab 1 tab 2 times per day [Active]; Amiodarone Oral [Active]; iw Furosemide Oral [Active]; Metformin Oral [Active]; Metoprolol Tartrate Oral [Active]; Spironolactone Oral [Active]; - PMHx: 16:43 Atrial Fib; CHF; Diabetes - IDDM; Hypertension; iw - Immunization history:: Client reports having NOT received the Covid vaccine. - Social history:: Smoking status: Smoking status: Patient denies any tobacco usage or history of. - Family history:: not pertinent. Screenin:50 Abuse screen: Denies threats or abuse. Denies injuries from another. Nutritional patterson screening: No deficits noted. Tuberculosis screening: No symptoms or risk factors identified. Fall Risk Mental Status- Overestimates/Forgets Limitations (15 pts.). Assessment: 16:50 VAN Scoring: Arm Drift: Patients demonstrates NO arm weakness. Patient is VAN Negative. patterson Visual Disturbance: No visual disturbance noted. Aphasia: No aphasia noted. Neglect: No neglect noted. T-PA (Activase) Screening: Indications: Contraindications: Is the patient on Aspirin, Heparin, or Warfarin: Yes. Pain: Denies pain. Neuro: Reports dizziness, weakness. 16:53 Patient has been NPO before screening. The patient is alert, and able to follow patterson commands. The patient does not exhibit slurred or garbled speech. The patient is not exhibiting difficulty speaking. The patient does not exhibit difficulty understanding words. The patient is able to swallow own secretions with no drooling or need for suction. Patient tolerated one teaspoon of water. No drooling, immediate coughing, gurgling, or clearing of the throat was noted. The patient tolerated 90mL of water. No drooling, immediate coughing, gurgling, or clearing of the throat was noted. 17:20 General: Appears comfortable, Behavior is calm, cooperative, appropriate for age. ww Neuro: Level of Consciousness is awake, alert, obeys commands, Oriented to person, place, time, situation, Appropriate for age Moves all extremities. Speech is normal. 18:52 The patient passed the bedside swallow screening. Oral medications may be given as ww ordered. Contact Physician for further diet orders. Reassessment: Patient appears in no apparent distress at this time. No changes from previously documented assessment. Patient and/or family updated on plan of care and expected duration. Pain level reassessed. Patient is alert, oriented x 3, equal unlabored respirations, skin warm/dry/pink. assisted to bedside toilet. 19:14 General: The pt has recv'd a bed at [facility]. She and her family have agreed to thomas the transfer, so the process will be started. . 19:17 General: I have called [phone], to give report . thomas 19:23 General: Report given to ARTI Elizabeth \\T\\ [facility] . thomas 20:18 General: I assisted the pt to ambulate to the bathroom and she ambulated with a steady thomas gait She voided a great amount. . 20:33 General: Report to EMS and the pt was sent to [facility] . thomas Vital Signs: 16:41 BP 139 / 70; Pulse 61; Resp 16; Temp 97.9; Pulse Ox 100% on R/A; Weight 73.94 kg; iw Height 5 ft. 6 in. (167.64 cm); 17:13 BP 145 / 73; Pulse 68; Resp 18; Pulse Ox 100% on R/A; patterson 18:56 BP 146 / 82; Pulse 70; Resp 18; Pulse Ox 100% on R/A; patterson 20:19 BP 166 / 75; Pulse 61; Resp 18; Pulse Ox 100% on R/A; thomas 16:41 Body Mass Index 26.31 (73.94 kg, 167.64 cm) iw NIH Stroke Scale Scores: 16:50 NIHSS Score: 0 patterson 17:01 NIHSS Score: 0 remberto ED Course: 16:33 Patient arrived in ED. ds1 16:43 Triage completed. iw 16:44 Arm band placed on. iw 16:50 Patient has correct armband on for positive identification. Bed in low position. patterson 16:50 No provider procedures requiring assistance completed. Inserted saline lock: 20 gauge patterson in left antecubital area, using aseptic technique. 16:54 Bravo Birch MD is Attending Physician. remberto 16:54 Initial lab(s) drawn, by me, sent to lab. Inserted saline lock: 20 gauge in left ww antecubital area, using aseptic technique. Blood collected. 16:59 Basic Metabolic Panel Sent. 5 16:59 CBC with Diff Sent. 5 16:59 LFT's Sent. [facility] 17:00 Magnesium Sent. [facility] 17:00 NT PRO-BNP Sent. [facility] 17:00 PT-INR Sent. [facility] 17:00 Troponin (emerg Dept Use Only) Sent. [facility] 17:00 Sed Rate Sent. [facility] 17:00 CRP Sent. [facility] 17:04 XRAY Chest (1 view) In Process Unspecified. EDMS 17:12 Inserted saline lock:. patterson 17:13 EKG done, by ED staff, reviewed by Bravo Birch MD. 5 17:14 Call light in reach. Adult w/ patient. Warm blanket given. laboratory monitor on. Pulse ox mh5 on. NIBP on. 17:33 CT Stroke Brain w/o Contrast In Process Unspecified. EDMS 17:34 CT Head Angio In Process Unspecified. EDMS 17:34 CT Neck Angio In Process Unspecified. EDMS 17:[address] Birch with Bj Quiñonez from the [facility] Transfer eb Center. 17:46 connected the neuro commission for the blind director for [facility] with Dr. Birch for patient transfer eb consultation. 17:47 SARS-COV-2 RT PCR (Document "Date of Onset" if Symptomatic) Sent. patterson 18:[address] Nova the hospitalist commission for the blind director for [facility] with Dr. Birch for eb patient transfer consultation. 19:14 Shelly Ayala RN is Primary Nurse. thomas 20:33 Maintain EMS IV. Dressing intact. Good blood return noted. Site clean \\T\\ dry. thomas Administered Medications: 17:12 Drug: NS 0.9% 500 ml Route: IV; Rate: bolus; Site: left antecubital; patterson 17:12 Drug: NS 0.9% 1000 ml Route: IV; Rate: 125 ml/hr; Site: left antecubital; patterson 17:12 Drug: foLIC Acid 1 mg Route: IVPB; Site: left antecubital; patterson 18:44 Drug: Aspirin 81 mg Route: PO; ww 18:44 Drug: LaSIX (furosemide) 20 mg Route: PO; ww 18:44 Drug: Metoprolol 25 mg Route: PO; ww 20:31 Drug: Rocephin (cefTRIAXone) 1 grams {Note: Sent with EMS.} Route: IV; Rate: per thomas protocol; Site: left antecubital; Outcome: 17:42 ER care complete, transfer ordered by . remberto 20:33 Condition: stable thomas 20:33 Transferred by ground EMS to [facility]. thomas 20:34 Patient left the ED. thomas NIH Stroke Scale - NIH Stroke Score Date: 06/24/2021 Time: 16:50 Total Score = 0 1a. Level of Consciousness (LOC) - 0(Alert) 1b. Level of Consciousness (LOC) (Month \\T\\ Age) - 0(Both) 1c. LOC Commands (Open \\T\\ Closes Eyes/[employer]) - 0(Both) 2. Best Gaze (Lateral Gaze Paresis) - 0(Normal) 3. Visual Field Loss - 0(No visual loss) 4. Facial Palsy - 0(Normal) 5a. Left Arm: Motor (10-second hold) - 0(No drift) 5b. Right Arm: Motor (10-second hold) - 0(No drift) 6a. Left Leg: Motor (5-second hold - always test supine) - 0(No drift) 6b. Right Leg: Motor (5-second hold - always test supine) - 0(No drift) 7. Limb Ataxia (finger/nose \\T\\ heel/roper - test with eyes open) - 0(Absent) 8. Sensory Loss (pinprick arms/legs/face) - 0(Normal) 9. Best Language: Aphasia (description/naming/reading) - 0(No aphasia) 10. Dysarthria (speech clarity - read or repeat words) - 0(Normal) 11. Extinction and Inattention (visual/tactile/auditory/spatial/personal) - 0(No abnormality) Initials: patterson NIH Stroke Scale - NIH Stroke Score Date: 06/24/2021 Time: 17:01 Total Score = 0 1a. Level of Consciousness (LOC) - 0(Alert) 1b. Level of Consciousness (LOC) (Month \\T\\ Age) - 0(Both) 1c. LOC Commands (Open \\T\\ Closes Eyes/[employer]) - 0(Both) 2. Best Gaze (Lateral Gaze Paresis) - 0(Normal) 3. Visual Field Loss - 0(No visual loss) 4. Facial Palsy - 0(Normal) 5a. Left Arm: Motor (10-second hold) - 0(No drift) 5b. Right Arm: Motor (10-second hold) - 0(No drift) 6a. Left Leg: Motor (5-second hold - always test supine) - 0(No drift) 6b. Right Leg: Motor (5-second hold - always test supine) - 0(No drift) 7. Limb Ataxia (finger/nose \\T\\ heel/roper - test with eyes open) - 0(Absent) 8. Sensory Loss (pinprick arms/legs/face) - 0(Normal) 9. Best Language: Aphasia (description/naming/reading) - 0(No aphasia) 10. Dysarthria (speech clarity - read or repeat words) - 0(Normal) 11. Extinction and Inattention (visual/tactile/auditory/spatial/personal) - 0(No abnormality) Initials: remberto Signatures: Dispatcher [employer] Bravo Leung MD MD cha Sanford, Demi ds1 Aleta Dumas RN RN iw Martinez, Maria [facility] Daphney Sawant Brenda, RN RN bo Wood, Whitney, RN RN ww Au-Lilia Soler RN RN ha
--- NOTE | 2021-06-24 17:44 | EDPHYS ---
Physician Documentation [facility] Name: Erum Mckay Age: 70 yrs Sex: Female : 1950 Arrival Date: 06/24/2021 Time: 16:33 Bed 7 Private MD: KENNETH Physician Bravo Birch HPI: 06/24 17:01 This 70 yrs old Female presents to ER via Wheelchair with complaints of remberto Slurred Speech, Dizziness. 17:01 The patient presents to the emergency department with weakness of the entire body, remberto generalized weakness, a speech or higher order brain function problem, aphasia. Onset: The symptoms/episode began/occurred 1.5 hour(s) ago. Context: occurred at home. Associated signs and symptoms: Pertinent positives: nausea, weakness. Severity of symptoms: At their worst the symptoms were mild in the emergency department the symptoms are unchanged. Patient's baseline: Neuro: alert and fully oriented. Current symptoms: speech heavy, confusion cleared up. The patient has not experienced similar symptoms in the past. Historical: - Allergies: 16:43 PENICILLINS; iw - Home Meds: 16:43 Eliquis 2.5 mg Oral tab 1 tab 2 times per day [Active]; Amiodarone Oral [Active]; iw Furosemide Oral [Active]; Metformin Oral [Active]; Metoprolol Tartrate Oral [Active]; Spironolactone Oral [Active]; - PMHx: 16:43 Atrial Fib; CHF; Diabetes - IDDM; Hypertension; iw - Immunization history:: Client reports having NOT received the Covid vaccine. - Social history:: Smoking status: Smoking status: Patient denies any tobacco usage or history of. - Family history:: not pertinent. ROS: 17:01 Constitutional: Negative for fever, chills, and weight loss, Eyes: Negative for injury, remberto pain, redness, and discharge, ENT: Negative for injury, pain, and discharge, Neck: Negative for injury, pain, and swelling, Cardiovascular: Negative for chest pain, palpitations, and edema, Respiratory: Negative for shortness of breath, cough, wheezing, and pleuritic chest pain, Abdomen/GI: Negative for abdominal pain, nausea, vomiting, diarrhea, and constipation, Back: Negative for injury and pain, : Negative for injury, bleeding, discharge, and swelling, MS/Extremity: Negative for injury and deformity, Skin: Negative for injury, rash, and discoloration, Psych: Negative for depression, anxiety, suicide ideation, homicidal ideation, and hallucinations, Allergy/Immunology: Negative for hives, rash, and allergies, Endocrine: Negative for neck swelling, polydipsia, polyuria, polyphagia, and marked weight changes, Hematologic/Lymphatic: Negative for swollen nodes, abnormal bleeding, and unusual bruising. 17:01 Neuro: Positive for altered mental status, speech changes, ams , confusion , dizzy on off all day. Exam: 17:01 Constitutional: This is a well developed, well nourished patient who is awake, alert, remberto and in no acute distress. Head/Face: Normocephalic, atraumatic. Eyes: Pupils equal round and reactive to light, extra-ocular motions intact. Lids and lashes normal. Conjunctiva and sclera are non-icteric and not injected. Cornea within normal limits. Periorbital areas with no swelling, redness, or edema. ENT: Nares patent. No nasal discharge, no septal abnormalities noted. Tympanic membranes are normal and external auditory canals are clear. Oropharynx with no redness, swelling, or masses, exudates, or evidence of obstruction, uvula midline. Mucous membranes moist. Neck: Trachea midline, no thyromegaly or masses palpated, and no cervical lymphadenopathy. Supple, full range of motion without nuchal rigidity, or vertebral point tenderness. No Meningismus. Chest/axilla: Normal chest wall appearance and motion. Nontender with no deformity. No lesions are appreciated. Cardiovascular: Regular rate and rhythm with a normal S1 and S2. No gallops, murmurs, or rubs. Normal PMI, no JVD. No pulse deficits. Respiratory: Lungs have equal breath sounds bilaterally, clear to auscultation and percussion. No rales, rhonchi or wheezes noted. No increased work of breathing, no retractions or nasal flaring. Abdomen/GI: Soft, non-tender, with normal bowel sounds. No distension or tympany. No guarding or rebound. No evidence of tenderness throughout. Back: No spinal tenderness. No costovertebral tenderness. Full range of motion. Female : Normal external genitalia. Skin: Warm, dry with normal turgor. Normal color with no rashes, no lesions, and no evidence of cellulitis. MS/ Extremity: Pulses equal, no cyanosis. Neurovascular intact. Full, normal range of motion. Neuro: Awake and alert, GCS 15, oriented to person, place, time, and situation. Cranial nerves II-XII grossly intact. Motor strength 5/5 in all extremities. Sensory grossly intact. Cerebellar exam normal. Normal gait. Psych: Awake, alert, with orientation to person, place and time. Behavior, mood, and affect are within normal limits. 17:57 ECG was reviewed by the Attending Physician. [facility] Vital Signs: 16:41 BP 139 / 70; Pulse 61; Resp 16; Temp 97.9; Pulse Ox 100% on R/A; Weight 73.94 kg; iw Height 5 ft. 6 in. (167.64 cm); 17:13 BP 145 / 73; Pulse 68; Resp 18; Pulse Ox 100% on R/A; patterson 18:56 BP 146 / 82; Pulse 70; Resp 18; Pulse Ox 100% on R/A; patterson 20:19 BP 166 / 75; Pulse 61; Resp 18; Pulse Ox 100% on R/A; thomas 16:41 Body Mass Index 26.31 (73.94 kg, 167.64 cm) iw NIH Stroke Scale Scores: 16:50 NIHSS Score: 0 patterson 17:01 NIHSS Score: 0 remberto MDM: 16:55 Patient medically screened. [facility] 17:05 Data reviewed: vital signs, nurses notes, lab test result(s), EKG, radiologic studies, remberto CT scan, plain films. Data interpreted: ekg monitor tech:. Test interpretation: by ED physician or midlevel provider: ECG, plain radiologic studies. Counseling: I had a detailed discussion with the patient and/or guardian regarding: the historical points, exam findings, and any diagnostic results supporting the discharge/admit diagnosis, lab results, radiology results, the need for outpatient follow up. 17:58 Physician consultation: Cruz Saldaña MD after a discussion of the case, a [facility] recommendation for transfer for higher level of care is made, would like medications started, no tpa, cont eliquis only, [place] [facility] [place]. 06/24 16:57 Order name: Basic Metabolic Panel; Complete Time: 17:41 [facility] 06/24 16:57 Order name: CBC with Diff; Complete Time: 17:41 [facility] 06/24 16:57 Order name: LFT's; Complete Time: 17:41 [facility] 06/24 16:57 Order name: Magnesium; Complete Time: 17:41 [facility] 06/24 16:57 Order name: NT PRO-BNP; Complete Time: 17:41 [facility] 06/24 16:57 Order name: PT-INR; Complete Time: 17:41 [facility] 06/24 16:57 Order name: Troponin (emerg Dept Use Only); Complete Time: 17:41 [facility] 06/24 16:57 Order name: XRAY Chest (1 view); Complete Time: 17:41 [facility] 06/24 16:57 Order name: Sed Rate; Complete Time: 17:41 [facility] 06/24 16:57 Order name: CRP; Complete Time: 17:41 [facility] 06/24 16:57 Order name: CT Stroke Brain w/o Contrast; Complete Time: 17:56 [facility] 06/24 17:41 Order name: SARS-COV-2 RT PCR (Document "Date of Onset" if Symptomatic); Complete Time: eb 19:00 06/24 16:57 Order name: EKG; Complete Time: 16:58 [facility] 06/24 16:57 Order name: Cardiac monitoring; Complete Time: 16:59 [facility] 06/24 16:57 Order name: EKG - Nurse/Tech; Complete Time: 16:58 [facility] 06/24 16:57 Order name: IV Saline Lock; Complete Time: 16:59 [facility] 06/24 16:57 Order name: Labs collected and sent; Complete Time: 16:59 [facility] 06/24 16:57 Order name: O2 Per Protocol; Complete Time: 16:59 [facility] 06/24 17:01 Order name: CT Head Angio; Complete Time: 18:24 [facility] 06/24 17:01 Order name: CT Neck Angio; Complete Time: 18:24 [facility] 06/24 16:57 Order name: O2 Sat Monitoring; Complete Time: 16:59 remberto EC:57 Rate is 62 beats/min. Rhythm is regular. QRS [place] is Normal. [place] interval is normal. QRS remberto interval is normal. QT interval is prolonged at 508 msec. No Q waves. T waves are Normal. No ST changes noted. Clinical impression: NSR w/ Non-specific ST/T Changes and No evidence of ischemia. Administered Medications: 17:12 Drug: NS 0.9% 500 ml Route: IV; Rate: bolus; Site: left antecubital; patterson 17:12 Drug: NS 0.9% 1000 ml Route: IV; Rate: 125 ml/hr; Site: left antecubital; patterson 17:12 Drug: foLIC Acid 1 mg Route: IVPB; Site: left antecubital; patterson 18:44 Drug: Aspirin 81 mg Route: PO; ww 18:44 Drug: LaSIX (furosemide) 20 mg Route: PO; ww 18:44 Drug: Metoprolol 25 mg Route: PO; ww 20:31 Drug: Rocephin (cefTRIAXone) 1 grams {Note: Sent with EMS.} Route: IV; Rate: per thomas protocol; Site: left antecubital; Disposition Summary: 06/24/21 17:42 Transfer Ordered Transfer Location: [facility] remberto Reason: Higher level of care remberto Condition: Fair remberto Problem: new remberto Symptoms: have improved remberto Accepting Physician: to [facility](06/24/21 20:34) thomas Diagnosis - Cerebral infarction, unspecified remberto - Aphasia - resolved remberto - Unspecified atrial fibrillation - history of remberto Forms: - Medication Reconciliation Form remberto - SBAR form remberto NIH Stroke Scale - NIH Stroke Score Date: 06/24/2021 Time: 16:50 Total Score = 0 1a. Level of Consciousness (LOC) - 0(Alert) 1b. Level of Consciousness (LOC) (Month \\T\\ Age) - 0(Both) 1c. LOC Commands (Open \\T\\ Closes Eyes/Funeral Counselor) - 0(Both) 2. Best Gaze (Lateral Gaze Paresis) - 0(Normal) 3. Visual Field Loss - 0(No visual loss) 4. Facial Palsy - 0(Normal) 5a. Left Arm: Motor (10-second hold) - 0(No drift) 5b. Right Arm: Motor (10-second hold) - 0(No drift) 6a. Left Leg: Motor (5-second hold - always test supine) - 0(No drift) 6b. Right Leg: Motor (5-second hold - always test supine) - 0(No drift) 7. Limb Ataxia (finger/nose \\T\\ heel/roper - test with eyes open) - 0(Absent) 8. Sensory Loss (pinprick arms/legs/face) - 0(Normal) 9. Best Language: Aphasia (description/naming/reading) - 0(No aphasia) 10. Dysarthria (speech clarity - read or repeat words) - 0(Normal) 11. Extinction and Inattention (visual/tactile/auditory/spatial/personal) - 0(No abnormality) Initials: yesenia NIH Stroke Scale - NIH Stroke Score Date: 06/24/2021 Time: 17:01 Total Score = 0 1a. Level of Consciousness (LOC) - 0(Alert) 1b. Level of Consciousness (LOC) (Month \\T\\ Age) - 0(Both) 1c. LOC Commands (Open \\T\\ Closes Eyes/Funeral Counselor) - 0(Both) 2. Best Gaze (Lateral Gaze Paresis) - 0(Normal) 3. Visual Field Loss - 0(No visual loss) 4. Facial Palsy - 0(Normal) 5a. Left Arm: Motor (10-second hold) - 0(No drift) 5b. Right Arm: Motor (10-second hold) - 0(No drift) 6a. Left Leg: Motor (5-second hold - always test supine) - 0(No drift) 6b. Right Leg: Motor (5-second hold - always test supine) - 0(No drift) 7. Limb Ataxia (finger/nose \\T\\ heel/roper - test with eyes open) - 0(Absent) 8. Sensory Loss (pinprick arms/legs/face) - 0(Normal) 9. Best Language: Aphasia (description/naming/reading) - 0(No aphasia) 10. Dysarthria (speech clarity - read or repeat words) - 0(Normal) 11. Extinction and Inattention (visual/tactile/auditory/spatial/personal) - 0(No abnormality) Initials: remberto Signatures: Dispatcher [employer] Bravo Leung MD MD cha Williams, Irene, RN RN iw O'Farrell, Brenda, RN RN bo Wood, Whitney, RN RN ww Au-Stager, Heather, RN RN ha Corrections: (The following items were deleted from the chart) 17:56 17:42 to [facility] remberto remberto 19:02 17:56 to [facility] remberto remberto 20:34 19:02 to [facility] remberto thomas
--- NOTE | 2021-06-24 17:55 | RAD REPORT ---
EXAM DESCRIPTION: CT - Ct Stroke Brain Wo Cont - 06/24/2021 5:33 pm CLINICAL HISTORY: Dizziness;TIA COMPARISON: Head angio dated 06/24/2021Head angio dated 06/24/2021; Head Brain Wo Cont dated 03/17/2021 TECHNIQUE: Axial 5 millimeter thick images of the head were obtained without IV contrast. All CT scans are performed using dose optimization technique as appropriate and may include automated exposure control or mA/KV adjustment according to patient size. FINDINGS: No intracranial hemorrhage, mass, or cerebral edema. No acute cortical infarction identifi able. No cortical edema or sulcal effacement. Atrophy changes are minimal. Chronic ischemic changes a re mild. Do matter-white matter differentiation is preserved.Ventricles are normal and in proportio n to volume loss. Intracranial findings are similar to comparison. Visualized portions of the mastoid air cells, paranasal sinuses, and orbits are unremarkable. Findings telephoned to doctor Birch 1750 hours. IMPRESSION: No CT evidence of acute intracranial process. Mild chronic ischemic change and minimal atrophy match the February 2021 study.
--- NOTE | 2021-06-24 17:58 | RAD REPORT ---
EXAM DESCRIPTION: CT - Head angio - 06/24/2021 5:34 pm CLINICAL HISTORY: TIA;Slurred speech TECHNIQUE: During dynamic enhancement using nonionic IV contrast, axial 1 millimeter thick images of the head were obtained. Sagittal and axial reconstruction images were generated using MIP technique and reviewed. All CT scans are performed using dose optimization technique as appropriate and may include automated exposure control or mA/KV adjustment according to patient size. COMPARISON: CT head same date FINDINGS: No aneurysm or vascular malformation identified. Major venous sinuses are patent. No stenosis, named branch occlusion, vasculitis or other significant vascular finding identifiable. IMPRESSION: Negative CT angio head examination.
--- NOTE | 2021-06-24 18:00 | RAD REPORT ---
EXAM DESCRIPTION: CT - Neck Angio - 06/24/2021 5:34 pm CLINICAL HISTORY: NUMBNESS TECHNIQUE: During dynamic enhancement using nonionic IV contrast, axial 2 mm thick images of the nec k were obtained. Sagittal and axial reconstruction images were generated using MIP technique and revi ewed. All CT scans are performed using dose optimization technique as appropriate and may include automated exposure control or mA/KV adjustment according to patient size. FINDINGS: No aneurysm or vascular malformation identified. No carotid or vertebral dissection. No aortic arch or great vessel origin abnormality seen. Vertebral artery origins unremarkable as well . No stenosis, vasculitis or other significant carotid artery finding. No focal abnormality of either vertebral artery. Basilar artery is normal. Very minimal carotid atherosclerotic calcifications are present none of which result in significant luminal narrowing. Prominent degenerative changes are seen primarily in the facet joints. No suspicious soft tissue find ing. IMPRESSION: Unremarkable CT angio neck examination.
[2021-06-24] MEDS ORDERED: FUROSEMIDE 20 MG TABLET ONE (18:38)
[2021-06-24] MEDS ORDERED: METOPROLOL TAR 25 MG TAB ONE (18:39)
[2021-06-24] MEDS ORDERED: ASPIRIN EC 81 MG TAB PO ONE (18:39)
[2021-06-24] MEDS ORDERED: NA CHLORIDE 0.9% 100 ML ONE (20:29)
[2021-06-24] MEDS ORDERED: CEFTRIAXONE 500 MG/VIAL ONE (20:29)
[2021-06-24] MEDS ORDERED: CEFTRIAXONE 1000 MG/VIAL ONE (20:32)
[2021-06-24 20:43] VITALS: TEMP 97.9; O2SAT 100
[2021-06-24 20:48] VITALS: BP 166/75
== END 2021-06-24 20:34 | disposition short-term general hospital (02) ==
LOC: ER 16:32
DX: I63.9 Cerebral infarction, unspecified (principal); R47.01 Aphasia; I48.91 Unspecified atrial fibrillation; I11.0 Hypertensive heart disease with heart failure; I50.9 Heart failure, unspecified; E11.9 Type 2 diabetes mellitus without complications; Z88.0 Allergy status to penicillin; Z20.822 Contact with and (suspected) exposure to COVID-19
CPT/HCPCS: 93005; 85025; 80048; 36415; 83735; 85610; 82565; 80076; 85652; 84484; 83880; 86140; 70496; 70498; 70450; 71045; 96375; 96374; 99285; U0003; Q9967; J7040; J7030; J0696

== ENCOUNTER 2022-01-03 13:05 | Emergency (ER) | payer OTHER ==
--- NOTE | 2022-01-03 14:15 | EDPHYS ---
Physician Documentation [facility] Name: Erum Mckay Age: 71 yrs Sex: Female : 1950 Arrival Date: 01/03/2022 Time: 13:07 Bed Waiting Private MD: Roc Petersen ED Physician Bravo Birch HPI: 01/03 14:07 This 71 yrs old Female presents to ER via Wheelchair with complaints of Nose Bleed. cp 14:07 The patient presents with a nose bleed, occurred spontaneously, that is intermittent cp causative factors include: currently taking blood thinner and the bleeding resolved prior to arrival. Onset: The symptoms/episode began/occurred this morning. Associated signs and symptoms: The patient has no apparent associated signs or symptoms. Severity of symptoms: in the emergency department the symptoms have resolved and did so while in waiting room. Historical: - Allergies: 13:56 PENICILLINS; iw - Home Meds: 13:56 Amiodarone Oral [Active]; Eliquis 2.5 mg Oral tab 1 tab 2 times per day [Active]; iw Furosemide Oral [Active]; Metformin Oral [Active]; Metoprolol Tartrate Oral [Active]; Spironolactone Oral [Active]; - PMHx: 13:56 Atrial Fib; CHF; Diabetes - IDDM; Hypertension; iw ROS: 14:08 Eyes: Negative for injury, pain, redness, and discharge. cp 14:08 Constitutional: Negative for body aches, chills, fever, poor PO intake. 14:08 ENT: Positive for nose bleed, Negative for drainage from ear(s), ear pain, difficulty swallowing, difficulty handling secretions. 14:08 Cardiovascular: Negative for chest pain, edema, palpitations. 14:08 Respiratory: Negative for cough, shortness of breath, wheezing. 14:08 Abdomen/GI: Negative for abdominal pain, vomiting, diarrhea, constipation. 14:08 Neuro: Positive for weakness, Negative for altered mental status, dizziness, headache, loss of consciousness, syncope. 14:08 All other systems are negative. Exam: 14:10 Head/Face: Normocephalic, atraumatic. cp 14:10 Constitutional: The patient appears in no acute distress, alert, awake, comfortable, non-toxic, well developed, well nourished. 14:10 Eyes: Periorbital structures: appear normal, Conjunctiva: normal, no exudate, no injection, Sclera: no appreciated abnormality, Lids and lashes: appear normal, bilaterally. 14:10 ENT: External ear(s): are unremarkable, Nose: External nose: no obvious acute abnormality, Nasal septum: is midline, Nasal mucosa: mild edema, mild erythema, bleeding, is seen from the right nare, and is minimal, no septal hematoma is appreciated, Mouth: Lips: moist, Oral mucosa: moist, Posterior pharynx: Airway: no evidence of obstruction, patent. 14:10 Neck: ROM/movement: is normal, is supple, without pain, no range of motions limitations. 14:10 Chest/axilla: Inspection: normal. 14:10 Cardiovascular: Rate: normal, Edema: is not appreciated, JVD: is not appreciated. 14:10 Respiratory: the patient does not display signs of respiratory distress, Respirations: normal, no use of accessory muscles, no retractions, labored breathing, is not present. 14:10 Abdomen/GI: Exam negative for discomfort, distension, guarding, Inspection: abdomen appears normal. 14:10 Neuro: Orientation: to person, place \T\ time. Mentation: is normal. Vital Signs: 13:54 BP 119 / 55; Pulse 55; Resp 16; Temp 97.5; Pulse Ox 100% on R/A; iw MDM: 14:14 Patient medically screened. cp 14:14 Data reviewed: vital signs, nurses notes. cp 14:14 Differential diagnosis: nasal fracture, trauma, sinusitis, epistaxis r/t trauma, cp spontaneous epistaxis. Counseling: I had a detailed discussion with the patient and/or guardian regarding: the historical points, exam findings, and any diagnostic results supporting the discharge/admit diagnosis, to return to the emergency department if symptoms worsen or persist or if there are any questions or concerns that arise at home. Administered Medications: 14:20 Drug: Afrin (oxymetazoline) Drops (0.05 %) 1 sprays Route: Intranasal; Site: right nare;iw Disposition Summary: 01/03/22 14:14 Discharge Ordered Location: Home cp Problem: new cp Symptoms: are resolved cp Condition: Stable cp Diagnosis - Epistaxis - resolved cp Followup: cp - With: Emergency Department - When: As needed - Reason: Worsening of condition Discharge Instructions: - Discharge Summary Sheet cp - Nosebleed, Adult cp Forms: - Medication Reconciliation Form cp - Thank You Letter cp - Antibiotic Education cp - Prescription Opioid Use cp Signatures: Aleta Dumas RN RN iw Bravo Donaldson PA PA cp
--- NOTE | 2022-01-03 14:15 | ER ---
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 Coronavirus screen: At this time, the client does not indicate any symptoms associated with coronavirus-19. Ebola Screen: Patient negative for fever greater than or equal to 101.5 degrees Fahrenheit, and additional compatible Ebola Virus Disease symptoms Patient denies exposure to infectious person. Patient denies travel to an Ebola-affected area in the 21 days before illness onset. No symptoms or risks identified at this time. Initial Sepsis Screen: Does the patient meet any 2 criteria? No. Patient's initial sepsis screen is negative. Does the patient have a suspected source of infection? No. Patient's initial sepsis screen is negative. Risk Assessment: Do you want to hurt yourself or someone else? Patient reports no desire to harm self or others. Onset of symptoms was January 03, 2022. 13:54 Method Of Arrival: Wheelchair iw 13:54 Acuity: VIRGILIO 4 iw Historical: - Allergies: 13:56 PENICILLINS; iw - Home Meds: 13:56 Amiodarone Oral [Active]; Eliquis 2.5 mg Oral tab 1 tab 2 times per day [Active]; iw Furosemide Oral [Active]; Metformin Oral [Active]; Metoprolol Tartrate Oral [Active]; Spironolactone Oral [Active]; - PMHx: 13:56 Atrial Fib; CHF; Diabetes - IDDM; Hypertension; iw Screenin:58 Abuse screen: Denies threats or abuse. Denies injuries from another. Nutritional iw screening: No deficits noted. Tuberculosis screening: No symptoms or risk factors identified. Fall Risk None identified. Vital Signs: 13:54 BP 119 / 55; Pulse 55; Resp 16; Temp 97.5; Pulse Ox 100% on R/A; iw ED Course: 13:07 Patient arrived in ED. mr 13:08 Roc Petersen MD is Private Physician. mr 13:35 Bravo Donaldson PA is PHCP. cp 13:36 Bravo Birch MD is Attending Physician. cp 13:56 Triage completed. iw 13:57 Arm band placed on. iw 14:18 Aleta Dumas, RN is Primary Nurse. iw Administered Medications: 14:20 Drug: Afrin (oxymetazoline) Drops (0.05 %) 1 sprays Route: Intranasal; Site: right nare;iw Outcome: 14:14 Discharge ordered by MD. cp 14:18 Patient left the ED. iw 14:18 Discharged to home via wheelchair, with family. iw 14:18 Condition: good 14:18 Discharge instructions given to patient, family, Instructed on discharge instructions, follow up and referral plans. Demonstrated understanding of instructions, follow-up care. Signatures: Margo Sweet mr Aleta Dumas, RN RN iw Bravo Donaldson PA PA cp
[2022-01-03] MEDS ORDERED: PHENYLEPHRINE 0.5% NOSE 15ML NAS ONE (14:23)
[2022-01-03 14:38] VITALS: BP 119/55; TEMP 97.5; O2SAT 100
== END 2022-01-03 14:18 | disposition home or self-care (01) ==
LOC: ER 13:05
DX: R04.0 Epistaxis (principal); I48.91 Unspecified atrial fibrillation; Z79.01 Long term (current) use of anticoagulants; I10 Essential (primary) hypertension; E11.9 Type 2 diabetes mellitus without complications; Z88.0 Allergy status to penicillin

== ENCOUNTER 2024-04-16 15:31 | Emergency (ER) | payer OTHER ==
[2024-04-16] MEDS ORDERED: MORPHINE 4 MG/ML SYR ONE (16:24)
[2024-04-16] MEDS ORDERED: ONDANSETRON 4 MG/2 ML VIAL ONE (16:24)
[2024-04-16 16:55] LABS: Absolute Eosinophils 0.2 K/uL (0-0.5); Absolute Lymphocytes (CBC) 2.2 K/uL (0.7-4.9); Absolute Monocytes 0.7 K/uL (0.1-1.3); Absolute Neutrophil 5.7 K/uL (1.8-8.0); Basophils % 0.4 % (0-1.3); Eosinophils % 2.4 % (0-4.4); Hematocrit 31.9 % (36.0-45.0); Hemoglobin 10.5 g/dL (12.0-15.0); MCH 28.1 pg (27.0-35.0); MCHC 32.8 g/dL (32.0-36.0); MCV 85.5 fL (80-100); MPV 8.6 fL (7.6-11.3); Monocytes % 7.7 % (3.3-12.3); Neutrophils % 64.5 % (41.7-73.7); PT Prothrombin Time 11.9 SECONDS (9.4-12.5); Platelets 208 thou/uL (152-406); Protime INR 1.06; RBC Red Blood Cell Count 3.73 M/uL (3.86-4.86); Red Cell Distribution Width 16.3 % (12.1-15.2)
[2024-04-16 17:08] LABS: AST/SGOT 13 U/L (15-37); Albumin/Globulin Ratio 0.9 (1.1-1.8); Alkaline Phosphatase 71 U/L (45-117); Anion Gap 13.8 mEq/L (5.0-15.0); BUN Blood Urea Nitrogen 31 mg/dL (7-18); Bicarbonate 23 mEq/L (21-32); Bilirubin Total 0.4 mg/dL (0.2-1.0); Globulin 3.3 g/dL (2.3-3.5); Glomerular Filtration Rate 48 ml/min (=/>90); Glucose Level 110 mg/dL (74-106); NT PRO-BNP 1063 pg/mL (<125); Potassium 3.8 mEq/L (3.5-5.1); Protein, Total 6.3 g/dL (6.4-8.2); Sodium Level 137 mEq/L (136-145)
--- NOTE | 2024-04-16 17:10 | EDPHYS ---
Physician Documentation [facility] Name: Erum Mckay Age: 73 yrs Sex: Female : 1950 Arrival Date: 04/16/2024 Time: 15:31 Bed 6 Private MD: ED Physician Bravo Birch HPI: 04/16 17:01 This 73 yrs old Female presents to ER via EMS with complaints of Fall Injury. remberto 17:01 Details of fall: The patient fell from an upright position, while walking. Onset: The remberto symptoms/episode began/occurred just prior to arrival. Associated injuries: The patient sustained decreased range of motion, obvious fracture, painful injury. Historical: - Allergies: 16:08 PENICILLINS; rs5 - PMHx: 16:08 Atrial Fib; CHF; Hypertension; Diabetes - IDDM; rs5 - PSHx: 16:08 None; rs5 - Immunization history:: Adult Immunizations up to date. - Infectious Disease History:: Denies. - Social history:: Smoking status: Patient denies any tobacco usage or history of. ROS: 17:04 Constitutional: Negative for fever, chills, and weight loss, Eyes: Negative for injury, remberto pain, redness, and discharge, ENT: Negative for injury, pain, and discharge, Neck: Negative for injury, pain, and swelling, Cardiovascular: Negative for chest pain, palpitations, and edema, Respiratory: Negative for shortness of breath, cough, wheezing, and pleuritic chest pain, Abdomen/GI: Negative for abdominal pain, nausea, vomiting, diarrhea, and constipation, Back: Negative for injury and pain, : Negative for injury, bleeding, discharge, and swelling, Skin: Negative for injury, rash, and discoloration, Neuro: Negative for headache, weakness, numbness, tingling, and seizure, Psych: Negative for depression, anxiety, suicide ideation, homicidal ideation, and hallucinations, Allergy/Immunology: Negative for hives, rash, and allergies, Endocrine: Negative for neck swelling, polydipsia, polyuria, polyphagia, and marked weight changes, Hematologic/Lymphatic: Negative for swollen nodes, abnormal bleeding, and unusual bruising, 17:04 MS/extremity: Positive for injury or acute deformity, decreased range of motion, pain, swelling, tenderness, of the right hip, lateral aspect of right thigh and right upper thigh, Exam: 17:04 Constitutional: This is a well developed, well nourished patient who is awake, alert, remberto and in no acute distress. Head/Face: Normocephalic, atraumatic. Eyes: Pupils equal round and reactive to light, extra-ocular motions intact. Lids and lashes normal. Conjunctiva and sclera are non-icteric and not injected. Cornea within normal limits. Periorbital areas with no swelling, redness, or edema. ENT: Nares patent. No nasal discharge, no septal abnormalities noted. Tympanic membranes are normal and external auditory canals are clear. Oropharynx with no redness, swelling, or masses, exudates, or evidence of obstruction, uvula midline. Mucous membranes moist. Neck: Trachea midline, no thyromegaly or masses palpated, and no cervical lymphadenopathy. Supple, full range of motion without nuchal rigidity, or vertebral point tenderness. No Meningismus. Chest/axilla: Normal chest wall appearance and motion. Nontender with no deformity. No lesions are appreciated. Cardiovascular: Regular rate and rhythm with a normal S1 and S2. No gallops, murmurs, or rubs. Normal PMI, no JVD. No pulse deficits. Respiratory: Lungs have equal breath sounds bilaterally, clear to auscultation and percussion. No rales, rhonchi or wheezes noted. No increased work of breathing, no retractions or nasal flaring. Abdomen/GI: Soft, non-tender, with normal bowel sounds. No distension or tympany. No guarding or rebound. No evidence of tenderness throughout. Back: No spinal tenderness. No costovertebral tenderness. Full range of motion. Female : Normal external genitalia. Skin: Warm, dry with normal turgor. Normal color with no rashes, no lesions, and no evidence of cellulitis. Neuro: Awake and alert, GCS 15, oriented to person, place, time, and situation. Cranial nerves II-XII grossly intact. Motor strength 5/5 in all extremities. Sensory grossly intact. Cerebellar exam normal. Normal gait. Psych: Awake, alert, with orientation to person, place and time. Behavior, mood, and affect are within normal limits. 17:04 Musculoskeletal/extremity: ROM: limited active range of motion due to pain, limited passive range of motion due to pain, Circulation is intact in all extremities. Sensation intact. Compartment Syndrome exam of affected extremity: is normal. Weight bearing: is unable to bear weight, DVT Exam: negative Homans' sign noted on exam, no appreciated bluish discoloration, no erythema, no increased warmth, pain, swelling, tenderness, Vital Signs: 16:06 BP 123 / 66; Pulse 70; Resp 17; Temp 98(O); Pulse Ox 98% on R/A; rs5 16:40 BP 125 / 70; Pulse 74; Resp 17; Pulse Ox 99% on R/A; rs5 19:48 BP 138 / 82; Pulse 76; Resp 17; Pulse Ox 96% ; Pain 7/10; dd2 19:51 Weight 70.76 kg (M); Height 5 ft. 4 in. ; dd2 19:51 Body Mass Index 26.78 (70.76 kg, 162.56 cm) dd2 19:48 Pain Scale: Adult dd2 MDM: 16:01 Medical Screening Exam initiated remberto 16:02 Medical Screening Exam initiated remberto 17:06 Differential diagnosis: contusion, fracture, multiple trauma, sprain, strain. Data [facility] reviewed: vital signs, nurses notes, EMS record, lab test result(s), EKG, radiologic studies, plain films. Consideration of Admission/Observation Escalation of care including admission/observation considered. Management of patient was discussed with the following: Carpet Cutter: surekha. I considered the following discharge prescriptions or medication management in the emergency department Medications were administered in the Emergency Department. See MAR. Independent interpretation of the following test(s) in the Emergency Department EKG: See my EKG interpretation above. Test considered but Not performed: CT: no ct trauma. Historians other than the Patient: EMS: ems well informed. Care significantly affected by the following chronic conditions: Diabetes, Hypertension, Congestive Heart Failure, Obesity, a fib. 04/16 16:03 Order name: Basic Metabolic Panel; Complete Time: 17:17 [facility] 04/16 16:03 Order name: CBC with Diff; Complete Time: 17: [facility] 04/16 16:03 Order name: LFT's; Complete Time: 17:17 [facility] 04/16 16:03 Order name: Magnesium; Complete Time: 17:17 [facility] 04/16 16:03 Order name: NT PRO-BNP; Complete Time: 17:17 [facility] 04/16 16:03 Order name: PT-INR; Complete Time: 17:06 04/16 16:03 Order name: Troponin HS; Complete Time: 17:17 04/16 16:03 Order name: Urinalysis w/ reflexes 04/16 16:03 Order name: XRAY Chest (1 view); Complete Time: 17:30 04/16 16:03 Order name: Hip Right 2 View XRAY; Complete Time: 19:00 04/16 16:03 Order name: Pelvis XRAY; Complete Time: 19:00 04/16 16:03 Order name: Femur Right XRAY; Complete Time: 19:00 04/16 16:03 Order name: Cardiac monitoring; Complete Time: 16:38 04/16 16:03 Order name: EKG - Nurse/Tech; Complete Time: 16:38 04/16 16:03 Order name: IV Saline Lock; Complete Time: 16:38 [facility] 04/16 16:03 Order name: Labs collected and sent; Complete Time: 16:38 [facility] 04/16 16:03 Order name: O2 Per Protocol; Complete Time: 16:38 [facility] 04/16 16:03 Order name: O2 Sat Monitoring; Complete Time: 16:38 [facility] 04/16 19:28 Order name: Lay: TO GRAVITY; Complete Time: 19:38 [facility] Administered Medications: 16:20 Drug: Ondansetron IVP 4 mg IVP once; over 2 minutes Route: IVP; Site: left forearm; rs5 19:51 Follow up: Response: No adverse reaction dd2 16:37 Drug: morphine IVP or IV 2 mg IVP once over 4 mins Route: IVP; Infused Over: 4 mins; rs5 Site: left forearm; 19:52 Follow up: Response: No adverse reaction dd2 16:38 Drug: morphine IVP or IV 2 mg IVP once over 4 mins Route: IVP; Infused Over: 4 mins; rs5 Site: left forearm; 19:52 Follow up: Response: No adverse reaction dd2 19:38 Drug: morphine IVP or IV 2 mg IVP once over 4 mins Route: IVP; Infused Over: 4 mins; dd2 Site: left hand; 19:49 Follow up: Response: No adverse reaction dd2 19:47 Drug: morphine IVP or IV 2 mg IVP once over 4 mins Route: IVP; Infused Over: 4 mins; dd2 Site: left hand; 19:49 Follow up: Response: Medication administered at discharge. dd2 Disposition Summary: 04/16/24 17:09 Transfer Ordered Notes: Transfer Location: [facility] remberto Reason: Higher level of care remberto Condition: Stable remberto Problem: new remberto Symptoms: have improved remberto Accepting Physician: to [facility](04/16/24 20:03) vc1 Diagnosis - Fracture of shaft of femur - SUBTROCHANTERIC remberto - Fall on same level, unspecified remberto - Pain in right hip remberto Forms: - Medication Reconciliation Form remberto - SBAR form remberto Signatures: Dispatcher [employer] EDMS Bravo Birch MD MD cha Williams, Irene, RN RN iw Albina Yee RN RN vc1 Demetri Morillo RN RN rs5 JESSICA SANCHEZ RN RN dd2 Corrections: (The following items were deleted from the chart) 16:04 16:04 Hip Right 2 View+RAD.RAD.BRZ ordered. EDMS EDMS 16:04 16:04 Pelvis+RAD.RAD.BRZ ordered. EDMS EDMS 16:04 16:04 Femur Right+RAD.RAD.BRZ ordered. EDMS EDMS 20:03 17:09 to [facility] remberto vc1
--- NOTE | 2024-04-16 17:10 | ER ---
Nurse's Notes [facility] Name: Erum Mckay Age: 73 yrs Sex: Female : 1950 Arrival Date: 04/16/2024 Time: 15:31 Bed 6 Private MD: Diagnosis: Fracture of shaft of femur-SUBTROCHANTERIC;Fall on same level, unspecified;Pain in right hip Presentation: 04/16 16:06 Chief complaint: EMS states: Pt was ambulating down some steps, missed one and landed rs5 on her right hip. Fall witnessed by sister, denies LOC, pt is on blood thinners. Pt complains of pain to right hip. Coronavirus screen: At this time, the client does not indicate any symptoms associated with coronavirus-19. Ebola Screen: No symptoms or risks identified at this time. Initial Sepsis Screen: Does the patient meet any 2 criteria? No. Patient's initial sepsis screen is negative. Does the patient have a suspected source of infection? No. Patient's initial sepsis screen is negative. Risk Assessment: Do you want to hurt yourself or someone else? Patient reports no desire to harm self or others. Onset of symptoms was April 16, 2024. 16:06 Method Of Arrival: EMS: [facility] rs5 16:06 Acuity: VIRGILIO 3 rs5 Historical: - Allergies: 16:08 PENICILLINS; rs5 - PMHx: 16:08 Atrial Fib; CHF; Hypertension; Diabetes - IDDM; rs5 - PSHx: 16:08 None; rs5 - Immunization history:: Adult Immunizations up to date. - Infectious Disease History:: Denies. - Social history:: Smoking status: Patient denies any tobacco usage or history of. Screenin:06 [facility] ED Fall Risk Assessment (Adult) History of falling in the last 3 months, rs5 including since admission Yes- single mechanical fall (1 pt) Confusion or Disorientation No (0 pts) Intoxicated or Sedated No (0 pts) Impaired Gait Yes (1 pt) Mobility Assist Device Used Yes (1 pt) Altered Elimination No (0 pt) Score/Fall Risk Level 3 or more points = High Risk Oriented to surroundings, Maintained a safe environment. 16:06 Abuse screen: Denies threats or abuse. Nutritional screening: No deficits noted. rs5 Tuberculosis screening: No symptoms or risk factors identified. Assessment: 16:04 General: Appears in no apparent distress. uncomfortable, Behavior is calm, cooperative. rs5 Pain: Complains of pain in right hip Pain currently is 9 out of 10 on a pain scale. Quality of pain is described as aching, Is continuous. 16:04 Neuro: Level of Consciousness is awake, alert, obeys commands, Oriented to person, rs5 place, time, situation. Cardiovascular: Patient's skin is warm and dry. Respiratory: Airway is patent Respiratory effort is even, unlabored, Respiratory pattern is regular, symmetrical. GI: Abdomen is round non-distended, Abd is soft and non tender X 4 quads. : No signs and/or symptoms were reported regarding the genitourinary system. EENT: No signs and/or symptoms were reported regarding the EENT system. Derm: Skin is intact, Skin is pink, warm \T\ dry. Musculoskeletal: Range of motion: limited in right hip. 16:40 Reassessment: Patient and/or family updated on plan of care and expected duration. Pain rs5 level reassessed. Patient is alert, oriented x 3, equal unlabored respirations, skin warm/dry/pink. Vital Signs: 16:06 BP 123 / 66; Pulse 70; Resp 17; Temp 98(O); Pulse Ox 98% on R/A; rs5 16:40 BP 125 / 70; Pulse 74; Resp 17; Pulse Ox 99% on R/A; rs5 19:48 BP 138 / 82; Pulse 76; Resp 17; Pulse Ox 96% ; Pain 7/10; dd2 19:51 Weight 70.76 kg (M); Height 5 ft. 4 in. ; dd2 19:51 Body Mass Index 26.78 (70.76 kg, 162.56 cm) dd2 19:48 Pain Scale: Adult dd2 ED Course: 16:01 Patient arrived in ED. remberto 16:02 Bravo Birch MD is Attending Physician. remberto 16:06 Patient has correct armband on for positive identification. Placed in gown. Bed in low rs5 position. Call light in reach. Side rails up X2. 16:06 No provider procedures requiring assistance completed. rs5 16:08 Triage completed. rs5 16:16 Demetri Morillo, ARTI is Primary Nurse. rs5 17:06 spoke with Yung at the [facility] transfer center. bc6 17:14 doc to doc. bc6 17:23 XRAY Chest (1 view) In Process Unspecified. EDMS 17:23 Hip Right 2 View XRAY In Process Unspecified. EDMS 17:23 Pelvis XRAY In Process Unspecified. EDMS 17:23 Femur Right XRAY In Process Unspecified. EDMS 17:[address] Morgan room 1838 at [facility]. bc6 18:43 vivi with [facility] accepted transfer. bc6 19:40 IV is patent, is intact, with fluids infusing freely, with good blood return, 18G To LT dd2 hand placed by day shift RN. Patient transferred, IV remains in place. intact, bleeding controlled, No redness/swelling at site. Pressure dressing applied. 19:52 Byrd cath inserted, using sterile technique, 16 Fr., by wa, balloon inflated, to vc1 gravity drainage, clamped. urine specimen collected. 19:53 Provided Education on: byrd care. vc1 Administered Medications: 16:20 Drug: Ondansetron IVP 4 mg IVP once; over 2 minutes Route: IVP; Site: left forearm; rs5 19:51 Follow up: Response: No adverse reaction dd2 16:37 Drug: morphine IVP or IV 2 mg IVP once over 4 mins Route: IVP; Infused Over: 4 mins; rs5 Site: left forearm; 19:52 Follow up: Response: No adverse reaction dd2 16:38 Drug: morphine IVP or IV 2 mg IVP once over 4 mins Route: IVP; Infused Over: 4 mins; rs5 Site: left forearm; 19:52 Follow up: Response: No adverse reaction dd2 19:38 Drug: morphine IVP or IV 2 mg IVP once over 4 mins Route: IVP; Infused Over: 4 mins; dd2 Site: left hand; 19:49 Follow up: Response: No adverse reaction dd2 19:47 Drug: morphine IVP or IV 2 mg IVP once over 4 mins Route: IVP; Infused Over: 4 mins; dd2 Site: left hand; 19:49 Follow up: Response: Medication administered at discharge. dd2 Medication: 16:39 VIS not applicable for this client. rs5 Outcome: 17:09 ER care complete, transfer ordered by MD. sr 19:52 Transferred by ground EMS to [facility], Transfer form completed. vc1 X-rays sent w/ patient. 19:52 Condition: good 20:03 Patient left the ED. vc1 Signatures: Dispatcher [employer] EDBravo Forde MD MD cha Calcote, Vanessa, RN RN vc1 Demetri Morillo, RN RN rs5 Jazmyn Gonsalez 6 JESSICA SANCHEZ RN RN dd2 Corrections: (The following items were deleted from the chart) 19:48 19:40 IV is patent, is intact, with fluids infusing freely, with good blood return, 22G dd2 To LT hand placed by day shift RN. Patient transferred, IV remains in place. intact, bleeding controlled, No redness/swelling at site. Pressure dressing applied, dd2
[2024-04-16 17:12] LABS: ALT/SGPT < 14 U/L (13-56); Bilirubin Direct < 0.2 mg/dL (0-0.2); Bilirubin Indirect, Calculated 0.2 mg/dL (0.2-0.8)
--- NOTE | 2024-04-16 17:25 | RAD REPORT ---
EXAMINATION: ONE VIEW CHEST XR CLINICAL INDICATION: Female, 73 years old.,COUGH TECHNIQUE: Frontal chest projection is submitted. Examination is limited by patient positioning and t echnique. COMPARISON: 06/24/2021 FINDINGS: The lungs are well inflated and clear. No pneumothorax or sizable effusion. The heart is normal in s ize. Implantable rhythm monitoring device and left atrial appendage occlusion device in place. IMPRESSION: No acute intrathoracic abnormalities.
--- NOTE | 2024-04-16 17:49 | RAD REPORT ---
EXAMINATION: XR PELVIS CLINICAL INDICATION: Female, 73 years old. [facility] MA[facility] PAIN Bed Name: 6 TECHNIQUE: AP Pelvis radiograph was obtained. COMPARISON: No prior exam. FINDINGS: Comminuted fracture of the proximal right femoral metaphysis. Visualized pelvic bones are i ntact. Cortical irregularity along the superior femoral head/neck junction, could relate to an osseous protuberance (cam configuration) versus a depressed fracture. Soft tissue swelling about the right hip. IMPRESSION: Comminuted fracture of the proximal right femoral metaphysis as above. Questionable small depressed f racture at the right femoral head/neck junction.
--- NOTE | 2024-04-16 17:49 | RAD REPORT ---
EXAMINATION: XR Femur Right CLINICAL INDICATION: Female, 73 years old. PAIN RIGHT TECHNIQUE: 2 view radiograph of the right femur were obtained. COMPARISON: No prior exam. FINDINGS: Comminuted fracture of the proximal right femoral metaphysis. Visualized pelvic bones are i ntact. Cortical irregularity along the superior femoral head/neck junction, could relate to an osseous protuberance (cam configuration) versus a depressed fracture. Soft tissue swelling about the right hip. Moderate to advanced right knee joint degenerative changes. IMPRESSION: Comminuted fracture of the proximal right femoral metaphysis.
--- NOTE | 2024-04-16 17:51 | RAD REPORT ---
EXAMINATION: Hip Right 2 View CLINICAL INDICATION: Female, 73 years old. [facility] PAIN Bed Name: 6 TECHNIQUE: 2 view radiograph of the right hip were obtained. COMPARISON: No prior exam. FINDINGS: Comminuted fracture of the proximal right femoral metaphysis. Abduction of the right femora l head/neck, with mild cranial and medial translation of the distal femoral shaft fragment by less than one shaft width. A fragment involving the base of the lesser trochanter is also seen. Cortical i rregularity along the superior femoral head/neck junction, could relate to an osseous protuberance (cam configuration) versus a depressed fracture. Soft tissue swelling about the right hip. IMPRESSION: Comminuted fracture of the proximal right femoral metaphysis as above.
[2024-04-16] MEDS ORDERED: MORPHINE 2 MG/ML SYR ONE ×2 (19:34→19:43)
[2024-04-16 20:00] LABS: Specific Gravity 1.012 (1.005-1.030); Sqamous Epithelial <5 /HPF (None Seen); Urine Bacteria <20 /HPF (<20); Urine Bilirubin NEGATIVE (Negative); Urine Blood Negative (Negative); Urine Clarity Turbid (Clear); Urine Color Light-Yellow (Yellow); Urine Culture Reflex Order REFLEXED; Urine Glucose NEGATIVE (Negative); Urine Ketones NEGATIVE (Negative); Urine Microscopic Reflex YN ORDER UMIC; Urine Nitrite NEGATIVE (Negative); Urine Protein NEGATIVE (Negative); Urine RBC <5 /HPF (None Seen); Urine Urobilinogen Normal (Normal); Urine WBC 20-50 /HPF (<5)
[2024-04-17 03:34] VITALS: TEMP 98
[2024-04-17 03:37] VITALS: BP 138/82; O2SAT 96
== END 2024-04-16 20:03 | disposition short-term general hospital (02) ==
LOC: ER 15:31
DX: S72.391A Other fracture of shaft of right femur, initial encounter for closed fracture (principal); W18.30XA Fall on same level, unspecified, initial encounter; E11.9 Type 2 diabetes mellitus without complications; I10 Essential (primary) hypertension; I50.9 Heart failure, unspecified; I48.91 Unspecified atrial fibrillation
CPT/HCPCS: 85025; 81001; 87086; 80048; 36415; 83735; 85610; 80076; 84484; 83880; 71045; 72170; 73502; 73552; 51702; 99285; J2270 ×2; J2405; 87088